=== PATIENT | female | born 1935 | race Caucasian/White ===

== ENCOUNTER → 2016-06-24 | Outpatient (CLI) | payer MEDICARE, MEDICAID ==
[~2016-06-24] MED LIST: ALDACTONE 25MG25 M1 PO; APRESOLINE 10MG10 MG PO; ASPIRIN 32325 MG/TAB PO; ASPIRIN 81M81 MG/TA2 PO; ASPIRIN E.C. 8181 MG PO; BYSTOLIC10 MG PO; CARDIZEM CD240 MG PO; CELEBREX 200MG200 MG PO; CLEOCIN HC150 MG/CAP PO; COLACE 100100 MG/CAP PO; COUMADIN5 MG PO; DARVOCET N; DARVOCET N 101 UDTAB PO; DOXYCYCLINE 10100 MG PO; HYDROXYZINE HCL25 MG PO; IMODIUM A-D2 MG PO; KLOR-CON M2020 MEQ PO; LASIX 20MG TABL20 MG PO; LOPRESSOR100 MG PO; MULTIPLE VITAMI1 CAP PO; NITROSTAT0.4 MG/TAB SL; NORCO 325 MG-51 TAB PO; NORVASC 5MG5 MG/TAB PO; NORVASC2.5 MG PO; NORVASC5 MG PO; OMEPRAZOLE DR20 MG PO; PHENERGAN W/CO120 M1 PO; PLAVIX 75MG TAB75 MG PO; PRAVACHOL 40MG40 MG PO; PREDNISONE20 MG PO; PRILOSEC 20MG20 MG PO; PROAIR HFA0.09 MG/AC IH; PROTONIX 40MG T40 MG PO; PROTONIX20 MG PO; REQUIP 1MG T1 MG/TAB PO; REQUIP2 MG PO; STOOL SOFTENER; STOOL SOFTENER100 M2 PO; TOPROL XL50 MG PO; ULTRAM 50MG TAB50 MG PO; VIT D; VITAMIN D32000 I1 PO; ZANTAC 7575 MG PO; ZOFRAN 4MG T4 MG/TAB PO
== END ==
LOC: COL.RAD 11:42
DX: M19.011 Primary osteoarthritis, right shoulder (principal); S46.811A Strain of other muscles, fascia and tendons at shoulder and upper arm level, right arm, initial encounter
CPT/HCPCS: Q9967

== ENCOUNTER 2016-06-29 14:40 | Inpatient (IN) | payer MEDICARE, MEDICAID ==
[~2016-06-29] VITALS: Ht 162.6 cm; Wt 96.3 kg
[~2016-06-29 14:40] MED LIST changes: -ALDACTONE 25MG25 M1 PO; -IMODIUM A-D2 MG PO; -REQUIP2 MG PO; -ZOFRAN 4MG T4 MG/TAB PO
[2016-07-27] VITALS (13 sets, daily range): BP systolic 105–150; BP diastolic 38–90; PULSE 58–88; TEMP 97.4–98.4
[2016-07-27] MEDS ORDERED: ALDACTONE 25MG25 M1 PO (06:05)
[2016-07-28 04:04] VITALS: BP 131/57; PULSE 65; TEMP 98
[2016-07-28 07:12] VITALS: BP 132/57; PULSE 64; TEMP 98.1
[2016-07-28 11:16] VITALS: BP 110/45; PULSE 64; TEMP 98.4
== END 2016-07-28 14:23 | disposition home or self-care (01) | DRG 483 ==
LOC: JCC 07-27 05:29
PROVIDERS: Orthopaedic Surgery Sports Medicine
PROC: 0RRJ00Z Replacement of Right Shoulder Joint with Reverse Ball and Socket Synthetic Substitute, Open Approach (ICD-10-PCS; principal; 2016-07-27 07:30)
DX: M19.011 Primary osteoarthritis, right shoulder (principal); Z85.828 Personal history of other malignant neoplasm of skin; Z95.0 Presence of cardiac pacemaker; Z96.653 Presence of artificial knee joint, bilateral
CPT/HCPCS: A9284; C1776; J0171; J0330; J1100; J2250; J2370; J2405; J2704; J2795; J3010

== ENCOUNTER 2016-07-30 15:43 | Emergency (ER) | payer MEDICARE, MEDICAID ==
[2006-09-25 22:38] VITALS: BP 187/94
[~2016-07-30] VITALS: Ht 162.6 cm; Wt 97.3 kg
[~2016-07-30 15:43] MED LIST changes: +ALDACTONE 25MG25 M1 PO
[2016-07-30 15:45] VITALS: TEMP 98.1
[2016-07-30] MEDS ORDERED: NORCO 325 MG-51 TAB PO (15:49)
[2016-07-30 16:59] LABS: BASO % 0.2 % (0.0-2.0); EOS # 0.4 (0.0-0.7); EOS % 4.3 % (0-4.0); GRAN # 5.4 (1.4-6.5); GRAN % 66.1 % (42.2-75.2); LYMPH # 1.8 (1.2-3.4); LYMPH % 22.2 % (20.0-51.0); MEAN CELL VOLUME 88 fl (80.0-100.0); MEAN CORPUSCULAR HGB CONC 33 g/dl (33.0-37.0); MONO # 0.6 (0.1-0.6); PLATELET COUNT 169 K/mm3 (130-400); RED BLOOD COUNT 3.71 M/mm3 (4.10-5.30); REDCELL DISTRIBUTION WIDTH-CV 15.3 % (11.5-14.5); WHITE BLOOD COUNT 8.2 K/mm3 (4.8-10.8)
[2016-07-30 17:01] LABS: HEMATOCRIT 32.5 % (37.0-47.0); HEMOGLOBIN 10.7 g/dl (12.5-16.0); MEAN CORPUSCULAR HEMOGLOBIN 29 pg (27.0-31.0)
[2016-07-30 17:08] LABS: CALCIUM 9.1 mg/dL (8.4-10.2); CREATININE, serum 1.33 mg/dL (0.52-1.25); POTASSIUM 4.3 mmol/L (3.4-5.0)
[2016-07-30 19:25] VITALS: BP 148/78; PULSE 78
== END 2016-07-30 19:25 | disposition home or self-care (01) ==
LOC: COL.ER 15:43
PROVIDERS: Emergency Medicine
DX: G89.18 Other acute postprocedural pain (principal); M25.512 Pain in left shoulder; I10 Essential (primary) hypertension
CPT/HCPCS: J2765; J3010; J7030

== ENCOUNTER 2016-10-14 16:11 | Inpatient (IN) | payer MEDICARE, MEDICAID ==
[~2016-10-14] VITALS: Ht 162.6 cm; Wt 107.0 kg
[2016-11-22] VITALS (12 sets, daily range): BP systolic 115–152; BP diastolic 45–543; PULSE 63–80; TEMP 97.2–98.5
[2016-11-22] MEDS ORDERED: IMODIUM A-D2 MG PO (05:44)
[2016-11-22] MEDS ORDERED: ULTRAM 50MG TAB50 MG PO (05:47)
[2016-11-23 00:39] VITALS: BP 97/65; PULSE 67; TEMP 97.5
[2016-11-23 04:00] VITALS: BP 144/54; PULSE 70; TEMP 98
[2016-11-23 07:14] VITALS: BP 114/56; PULSE 67; TEMP 98.5
[2016-11-23 07:48] LABS: HEMATOCRIT 31.8 % (37.0-47.0); HEMOGLOBIN 10.3 g/dl (12.5-16.0)
[2016-11-23] MEDS ORDERED: NORCO 325 MG-51 TAB PO (08:48)
[2016-11-23] MEDS ORDERED: COLACE 100100 MG/CAP PO (08:49)
[2016-11-23] MEDS ORDERED: ZOFRAN 4MG T4 MG/TAB PO (08:50)
[2016-11-23 12:15] VITALS: BP 104/38; PULSE 65; TEMP 97.6
== END 2016-11-23 14:20 | disposition home or self-care (01) | DRG 483 ==
LOC: JCC 11-22 05:04
PROVIDERS: Orthopaedic Surgery Sports Medicine
PROC: 0RRK00Z Replacement of Left Shoulder Joint with Reverse Ball and Socket Synthetic Substitute, Open Approach (ICD-10-PCS; principal; 2016-11-22 07:30)
DX: M19.012 Primary osteoarthritis, left shoulder (principal); I10 Essential (primary) hypertension; I25.10 Atherosclerotic heart disease of native coronary artery without angina pectoris; Z95.0 Presence of cardiac pacemaker; Z95.5 Presence of coronary angioplasty implant and graft; Z85.828 Personal history of other malignant neoplasm of skin
CPT/HCPCS: A9284; C1776; J1100; J2250; J2405; J2704; J3010; J7120

== ENCOUNTER 2017-01-23 09:40 | Observation (INO) | payer MEDICARE ==
[~2017-01-23] VITALS: Ht 162.6 cm; Wt 94.1 kg
[~2017-01-23 09:40] MED LIST changes: +IMODIUM A-D2 MG PO; +ZOFRAN 4MG T4 MG/TAB PO
[2017-01-23] MEDS ORDERED: NITROSTAT0.4 MG/TAB SL (10:01)
[2017-01-23] MEDS ORDERED: PLAVIX 75MG TAB75 MG PO (10:02)
[2017-01-23] MEDS ORDERED: ULTRAM 50MG TAB50 MG PO (10:03)
[2017-01-23] MEDS ORDERED: PRAVACHOL 40MG40 MG PO (10:03)
[2017-01-23] MEDS ORDERED: PROTONIX 40MG T40 MG PO (10:04)
[2017-01-23] MEDS ORDERED: CELEBREX 200MG200 MG PO (10:04)
[2017-01-23] MEDS ORDERED: BYSTOLIC10 MG PO (10:04)
[2017-01-23] MEDS ORDERED: REQUIP2 MG PO (10:05)
[2017-01-23] MEDS ORDERED: LASIX 20MG TABL20 MG PO (10:06)
[2017-01-23] MEDS ORDERED: COLACE 100100 MG/CAP PO (10:06)
[2017-01-23] MEDS ORDERED: ALDACTONE 25MG25 M1 PO (10:07)
[2017-01-23 11:05] LABS: BASO % 0.3 % (0.0-2.0); EOS # 0.5 (0.0-0.7); EOS % 7.3 % (0-4.0); GRAN # 4.2 (1.4-6.5); GRAN % 61.6 % (42.2-75.2); HEMATOCRIT 35.5 % (37.0-47.0); HEMOGLOBIN 11.6 g/dl (12.5-16.0); LYMPH # 1.5 (1.2-3.4); LYMPH % 22.2 % (20.0-51.0); MEAN CELL VOLUME 85 fl (80.0-100.0); MEAN CORPUSCULAR HEMOGLOBIN 28 pg (27.0-31.0); MEAN CORPUSCULAR HGB CONC 33 g/dl (33.0-37.0); MEAN PLATELET VOLUME 10.3 fl (7.4-10.4); MONO # 0.6 (0.1-0.6); MONO % 8.2 % (1.7-9.3); PLATELET COUNT 189 K/mm3 (130-400); RED BLOOD COUNT 4.16 M/mm3 (4.10-5.30); REDCELL DISTRIBUTION WIDTH-CV 15.3 % (11.5-14.5); WHITE BLOOD COUNT 6.8 K/mm3 (4.8-10.8)
[2017-01-23 11:11] LABS: INR 1.1 (0.8-3.0); PROTHROMBIN TIME 12.4 SECONDS (9.7-12.8)
[2017-01-23 11:14] LABS: ADJUSTED CALCIUM 9.3 mg/dL (8.4-10.2); ALANINE AMINOTRANSFERASE 28 U/L (9-52); ALBUMIN 4.4 gm/dL (3.5-5.0); ALKALINE PHOSPHATASE 104 U/L (50-136); ANION GAP 13 mmol/L (7-16); BILIRUBIN,TOTAL 0.8 mg/dL (0.0-1.0); BLOOD UREA NITROGEN 35 mg/dL (7-17); CALCIUM 9.6 mg/dL (8.4-10.2); CARBON DIOXIDE 25 mmol/L (22-30); CHLORIDE 100 mmol/L (98-107); CREATININE, serum 1.97 mg/dL (0.52-1.25); GLUCOSE 112 mg/dL (74-106); LIPASE 166 U/L (23-300); PARTIAL THROMBOPLASTIN TIME 29.4 SECONDS (26.0-37.0); POTASSIUM 4.1 mmol/L (3.4-5.0); SODIUM 138 mmol/L (137-145); TOTAL PROTEIN 7.9 gm/dL (6.4-8.2)
[2017-01-23 11:26] LABS: B-TYPE NATRIURETIC PEPTIDE 257 pg/mL (0-450)
[2017-01-23 11:32] LABS: TROPONIN-I < 0.012 ng/mL (0.000-0.034)
[2017-01-23 13:58] VITALS: BP 95/53; PULSE 60; TEMP 98.2
[2017-01-23 19:49] VITALS: BP 105/47; PULSE 59; TEMP 97.8
[2017-01-23 23:32] VITALS: BP 125/98; PULSE 98; TEMP 98.6
[2017-01-24 02:57] VITALS: BP 131/59; PULSE 59; TEMP 97.8
[2017-01-24 07:44] VITALS: BP 114/57; PULSE 62; TEMP 98.1
[2017-01-24 08:00] LABS: TROPONIN-I < 0.012 ng/mL (0.000-0.034)
[2017-01-24 08:12] LABS: ANION GAP 9 mmol/L (7-16); BLOOD UREA NITROGEN 26 mg/dL (7-17); CALCIUM 9.3 mg/dL (8.4-10.2); CARBON DIOXIDE 25 mmol/L (22-30); CHLORIDE 102 mmol/L (98-107); CREATININE, serum 1.41 mg/dL (0.52-1.25); GLUCOSE 94 mg/dL (74-106); POTASSIUM 4.1 mmol/L (3.4-5.0); SODIUM 137 mmol/L (137-145)
[2017-01-24 11:55] VITALS: BP 110/45; PULSE 54; TEMP 97.8
[2017-01-24 16:27] VITALS: BP 118/59; PULSE 55
== END 2017-01-24 17:19 | disposition home or self-care (01) ==
LOC: COL.ER 09:40 → MEDICAL 12:07
PROVIDERS: Emergency Medicine
DX: R07.9 Chest pain, unspecified (principal); R07.1 Chest pain on breathing; E78.5 Hyperlipidemia, unspecified; G25.81 Restless legs syndrome; I25.10 Atherosclerotic heart disease of native coronary artery without angina pectoris; Z86.010 Personal history of colon polyps; Z95.5 Presence of coronary angioplasty implant and graft; Z95.0 Presence of cardiac pacemaker; I87.9 Disorder of vein, unspecified; Z79.01 Long term (current) use of anticoagulants
CPT/HCPCS: G0378

== ENCOUNTER 2017-05-26 13:44 | Emergency (ER) | payer MEDICARE, MEDICAID ==
[2006-09-25 22:38] VITALS: BP 187/94
[~2017-05-26] VITALS: Ht 162.6 cm; Wt 95.5 kg
[~2017-05-26 13:44] MED LIST changes: +REQUIP2 MG PO
[2017-05-26 13:45] VITALS: TEMP 97.6
[2017-05-26 15:53] LABS: BASO % 0.5 % (0.0-2.0); EOS # 0.3 (0.0-0.7); EOS % 3.6 % (0-4.0); GRAN # 4.9 (1.4-6.5); HEMOGLOBIN 11.5 g/dl (12.5-16.0); LYMPH # 1.8 (1.2-3.4); LYMPH % 24.2 % (20.0-51.0); MEAN CELL VOLUME 89 fl (80.0-100.0); MEAN CORPUSCULAR HEMOGLOBIN 28 pg (27.0-31.0); MEAN CORPUSCULAR HGB CONC 32 g/dl (33.0-37.0); MEAN PLATELET VOLUME 10.4 fl (7.4-10.4); MONO # 0.5 (0.1-0.6); MONO % 6.3 % (1.7-9.3); PLATELET COUNT 198 K/mm3 (130-400); RED BLOOD COUNT 4.05 M/mm3 (4.10-5.30); WHITE BLOOD COUNT 7.5 K/mm3 (4.8-10.8)
[2017-05-26 15:57] LABS: INR 1.1 (0.8-3.0); PROTHROMBIN TIME 12.7 SECONDS (9.7-12.8)
[2017-05-26 16:02] LABS: ADJUSTED CALCIUM 9.3 mg/dL (8.4-10.2); ALBUMIN 4.7 gm/dL (3.5-5.0); BILIRUBIN,TOTAL 0.9 mg/dL (0.0-1.0); CALCIUM 9.9 mg/dL (8.4-10.2); CREATININE, serum 1.52 mg/dL (0.52-1.25); TOTAL PROTEIN 7.8 gm/dL (6.4-8.2)
[2017-05-26 16:33] LABS: POTASSIUM 4.2 mmol/L (3.4-5.0)
[2017-05-26 17:10] VITALS: BP 168/83; PULSE 63
== END 2017-05-26 17:10 | disposition home or self-care (01) ==
LOC: COL.ER 13:44
PROVIDERS: Physician Assistant Medical
DX: R04.0 Epistaxis (principal); R20.2 Paresthesia of skin; I25.10 Atherosclerotic heart disease of native coronary artery without angina pectoris; Z95.5 Presence of coronary angioplasty implant and graft; Z95.0 Presence of cardiac pacemaker

== ENCOUNTER → 2017-07-20 | Outpatient (CLI) | payer MEDICARE, MEDICAID ==
[2017-07-20 11:38] LABS: HEMATOCRIT 34.2 % (37.0-47.0); MEAN CELL VOLUME 89 fl (80.0-100.0); MEAN CORPUSCULAR HEMOGLOBIN 29 pg (27.0-31.0); MEAN CORPUSCULAR HGB CONC 32 g/dl (33.0-37.0); MEAN PLATELET VOLUME 10.4 fl (7.4-10.4); PLATELET COUNT 186 K/mm3 (130-400); RED BLOOD COUNT 3.83 M/mm3 (4.10-5.30); REDCELL DISTRIBUTION WIDTH-CV 14.9 % (11.5-14.5)
[2017-07-20 11:44] LABS: CALCIUM 9.3 mg/dL (8.4-10.2); CREATININE, serum 1.39 mg/dL (0.52-1.25); POTASSIUM 4.4 mmol/L (3.4-5.0)
== END ==
LOC: COL.LAB 11:06
PROVIDERS: Internal Medicine Interventional Cardiology
DX: R60.0 Localized edema (principal)

== ENCOUNTER 2017-08-04 20:35 | Observation (INO) | payer MEDICARE, MEDICAID ==
[~2017-08-04] VITALS: Ht 162.6 cm; Wt 99.6 kg
[2017-08-04] MEDS ORDERED: TEGRETOL 1100 MG/TAB PO (21:14)
[2017-08-04 21:18] LABS: BASO % 0.6 % (0.0-2.0); EOS # 0.3 (0.0-0.7); EOS % 5.1 % (0-4.0); GRAN # 3.8 (1.4-6.5); GRAN % 58.5 % (42.2-75.2); LYMPH # 1.7 (1.2-3.4); LYMPH % 26.4 % (20.0-51.0); MEAN CELL VOLUME 90 fl (80.0-100.0); MEAN CORPUSCULAR HGB CONC 32 g/dl (33.0-37.0); MEAN PLATELET VOLUME 10.4 fl (7.4-10.4); MONO # 0.6 (0.1-0.6); MONO % 9.2 % (1.7-9.3); PLATELET COUNT 170 K/mm3 (130-400); RED BLOOD COUNT 3.69 M/mm3 (4.10-5.30); REDCELL DISTRIBUTION WIDTH-CV 15.3 % (11.5-14.5)
[2017-08-04 21:21] LABS: HEMATOCRIT 33.1 % (37.0-47.0); HEMOGLOBIN 10.5 g/dl (12.5-16.0); MEAN CORPUSCULAR HEMOGLOBIN 28 pg (27.0-31.0)
[2017-08-04 21:24] LABS: PROTHROMBIN TIME 12.1 SECONDS (9.7-12.8)
[2017-08-04 21:26] LABS: ALANINE AMINOTRANSFERASE 33 U/L (9-52); ALKALINE PHOSPHATASE 87 U/L (50-136); ANION GAP 10 mmol/L (7-16); AST,SGOT 18 U/L (15-37); BILIRUBIN,TOTAL 0.1 mg/dL (0.0-1.0); BLOOD UREA NITROGEN 23 mg/dL (7-17); CARBON DIOXIDE 26 mmol/L (22-30); CHLORIDE 104 mmol/L (98-107); CREATININE, serum 1.42 mg/dL (0.52-1.25); GLUCOSE 109 mg/dL (74-106); POTASSIUM 4.6 mmol/L (3.4-5.0); SODIUM 140 mmol/L (137-145)
[2017-08-04 21:46] LABS: TROPONIN-I < 0.012 ng/mL (0.000-0.034)
[2017-08-05] VITALS (8 sets, daily range): BP systolic 113–151; BP diastolic 46–68; PULSE 66–78; TEMP 97.7–98.6
[2017-08-06 04:10] VITALS: BP 144/58; PULSE 65; TEMP 98
[2017-08-06 09:04] VITALS: BP 145/63; PULSE 65; TEMP 99.8
[2017-08-06] MEDS ORDERED: PROTONIX 40MG T40 MG PO (09:33)
[2017-08-06] MEDS ORDERED: CARAFATE 1GM1 G PO (09:35)
[2017-08-06] MEDS ORDERED: ANORO IH (09:39)
== END 2017-08-06 13:13 | disposition home or self-care (01) ==
LOC: COL.ER 20:35 → MEDICAL 22:10
PROVIDERS: Emergency Medicine
DX: R07.9 Chest pain, unspecified (principal); K21.9 Gastro-esophageal reflux disease without esophagitis; K44.9 Diaphragmatic hernia without obstruction or gangrene; I25.10 Atherosclerotic heart disease of native coronary artery without angina pectoris; I50.30 Unspecified diastolic (congestive) heart failure; Z79.02 Long term (current) use of antithrombotics/antiplatelets; E78.5 Hyperlipidemia, unspecified; Z45.018 Encounter for adjustment and management of other part of cardiac pacemaker; R55 Syncope and collapse; Z88.1 Allergy status to other antibiotic agents; Z88.8 Allergy status to other drugs, medicaments and biological substances; Z95.5 Presence of coronary angioplasty implant and graft
CPT/HCPCS: C9113; G0378

== ENCOUNTER 2017-12-20 22:05 | Observation (INO) | payer MEDICARE, MEDICAID ==
[~2017-12-20] VITALS: Ht 162.6 cm; Wt 93.7 kg
[~2017-12-20 22:05] MED LIST changes: +ANORO IH; +CARAFATE 1GM1 G PO; +TEGRETOL 1100 MG/TAB PO
[2017-12-20 22:52] LABS: BASO % 0.4 % (0.0-2.0); EOS # 0.2 (0.0-0.7); EOS % 2.9 % (0-4.0); GRAN # 5.2 (1.4-6.5); GRAN % 64.1 % (42.2-75.2); HEMOGLOBIN 10.8 g/dl (12.5-16.0); LYMPH % 24.5 % (20.0-51.0); MEAN CELL VOLUME 88 fl (80.0-100.0); MEAN CORPUSCULAR HEMOGLOBIN 28 pg (27.0-31.0); MEAN CORPUSCULAR HGB CONC 32 g/dl (33.0-37.0); MEAN PLATELET VOLUME 10.1 fl (7.4-10.4); MONO # 0.6 (0.1-0.6); MONO % 7.9 % (1.7-9.3); PLATELET COUNT 203 K/mm3 (130-400); RED BLOOD COUNT 3.84 M/mm3 (4.10-5.30); REDCELL DISTRIBUTION WIDTH-CV 15.7 % (11.5-14.5)
[2017-12-20 22:54] LABS: HEMATOCRIT 33.8 % (37.0-47.0)
[2017-12-20 23:06] LABS: INR 1.1 (0.8-3.0); PROTHROMBIN TIME 12.6 SECONDS (9.7-12.8)
[2017-12-20] MEDS ORDERED: RANEXA 500MG T500 MG PO (23:06)
[2017-12-20 23:09] LABS: ALANINE AMINOTRANSFERASE 29 U/L (9-52); ALKALINE PHOSPHATASE 94 U/L (50-136); ANION GAP 10 mmol/L (7-16); AST,SGOT 21 U/L (15-37); BILIRUBIN,TOTAL 0.4 mg/dL (0.0-1.0); BLOOD UREA NITROGEN 33 mg/dL (7-17); CALCIUM 9.4 mg/dL (8.4-10.2); CARBON DIOXIDE 26 mmol/L (22-30); CHLORIDE 99 mmol/L (98-107); CREATININE, serum 1.55 mg/dL (0.52-1.25); GLUCOSE 119 mg/dL (74-106); POTASSIUM 4.4 mmol/L (3.4-5.0); SODIUM 135 mmol/L (137-145); TOTAL PROTEIN 7.3 gm/dL (6.4-8.2)
[2017-12-20 23:21] LABS: TROPONIN-I < 0.012 ng/mL (0.000-0.034)
[2017-12-21] VITALS (12 sets, daily range): BP systolic 112–148; BP diastolic 53–66; PULSE 59–65; TEMP 97.5–98.9
[2017-12-21] MEDS ORDERED: MIRALAX PA17 GM/Dose PO (02:05)
[2017-12-21 12:04] LABS: MEAN CELL VOLUME 86 fl (80.0-100.0); MEAN CORPUSCULAR HEMOGLOBIN 28 pg (27.0-31.0); MEAN CORPUSCULAR HGB CONC 33 g/dl (33.0-37.0); MEAN PLATELET VOLUME 10.1 fl (7.4-10.4); PLATELET COUNT 189 K/mm3 (130-400); RED BLOOD COUNT 3.88 M/mm3 (4.10-5.30); REDCELL DISTRIBUTION WIDTH-CV 15.6 % (11.5-14.5)
[2017-12-21 12:08] LABS: HEMATOCRIT 33.3 % (37.0-47.0)
[2017-12-21 12:15] LABS: CALCIUM 9.3 mg/dL (8.4-10.2); CREATININE, serum 1.25 mg/dL (0.52-1.25); INR 1.1 (0.8-3.0); POTASSIUM 4.4 mmol/L (3.4-5.0); PROTHROMBIN TIME 12.3 SECONDS (9.7-12.8)
[2017-12-21 12:18] LABS: PARTIAL THROMBOPLASTIN TIME 29.9 SECONDS (26.0-37.0)
[2017-12-22 04:25] VITALS: BP 121/49; PULSE 61; TEMP 98.1
[2017-12-22 07:59] VITALS: BP 142/58; PULSE 60; TEMP 98.1
[2017-12-22 12:16] VITALS: BP 117/62; PULSE 62; TEMP 97.9
== END 2017-12-22 14:35 | disposition home or self-care (01) ==
LOC: COL.ER 22:05 → MEDICAL 12-21 00:48
PROVIDERS: Emergency Medicine; Internal Medicine Cardiovascular Disease
DX: I25.110 Atherosclerotic heart disease of native coronary artery with unstable angina pectoris (principal); I10 Essential (primary) hypertension; E78.5 Hyperlipidemia, unspecified; K21.9 Gastro-esophageal reflux disease without esophagitis; K44.9 Diaphragmatic hernia without obstruction or gangrene; Z95.0 Presence of cardiac pacemaker; I49.5 Sick sinus syndrome; Z95.5 Presence of coronary angioplasty implant and graft; N28.9 Disorder of kidney and ureter, unspecified; Z79.01 Long term (current) use of anticoagulants; Z79.899 Other long term (current) drug therapy; M54.5 Low back pain; Z85.828 Personal history of other malignant neoplasm of skin; Z96.643 Presence of artificial hip joint, bilateral
CPT/HCPCS: C1769; C1887; J0153; J1644; J2250; J2270; J2405; J3010; J7030; Q9967

== ENCOUNTER 2018-02-13 14:02 | Emergency (ER) | payer MEDICARE, MEDICAID ==
[2006-09-25 22:38] VITALS: BP 187/94
[~2018-02-13] VITALS: Ht 165.1 cm; Wt 97.7 kg
[~2018-02-13 14:02] MED LIST changes: +MIRALAX PA17 GM/Dose PO; +RANEXA 500MG T500 MG PO
[2018-02-13 16:45] VITALS: BP 139/77; PULSE 70; TEMP 98
== END 2018-02-13 16:45 | disposition home or self-care (01) ==
LOC: COL.ER 14:02
DX: S60.021A Contusion of right index finger without damage to nail, initial encounter (principal); I25.10 Atherosclerotic heart disease of native coronary artery without angina pectoris; E78.5 Hyperlipidemia, unspecified; I10 Essential (primary) hypertension; K21.9 Gastro-esophageal reflux disease without esophagitis; W22.8XXA Striking against or struck by other objects, initial encounter; Y92.512 Supermarket, store or market as the place of occurrence of the external cause; Z79.02 Long term (current) use of antithrombotics/antiplatelets

== ENCOUNTER 2018-04-02 23:58 | Observation (INO) | payer MEDICARE, MEDICAID ==
[~2018-04-02] VITALS: Ht 165.1 cm; Wt 93.9 kg
[2018-04-03] VITALS (7 sets, daily range): BP systolic 110–170; BP diastolic 46–79; PULSE 66–81; TEMP 97.4–98.1
[2018-04-03] MEDS ORDERED: NITRO-DUR0.4 MG/PAT TD (01:53)
[2018-04-03] MEDS ORDERED: NORCO 325 MG-51 TAB PO (02:01)
[2018-04-03 10:29] LABS: BASO % 0.4 % (0.0-2.0); EOS # 0.2 (0.0-0.7); EOS % 3.2 % (0-4.0); GRAN % 67.2 % (42.2-75.2); HEMOGLOBIN 10.7 g/dl (12.5-16.0); LYMPH # 1.5 (1.2-3.4); LYMPH % 20.1 % (20.0-51.0); MEAN CELL VOLUME 88 fl (80.0-100.0); MEAN CORPUSCULAR HEMOGLOBIN 29 pg (27.0-31.0); MEAN CORPUSCULAR HGB CONC 33 g/dl (33.0-37.0); MEAN PLATELET VOLUME 9.8 fl (7.4-10.4); MONO # 0.7 (0.1-0.6); MONO % 8.8 % (1.7-9.3); PLATELET COUNT 192 K/mm3 (130-400); REDCELL DISTRIBUTION WIDTH-CV 15.4 % (11.5-14.5)
[2018-04-03 10:30] LABS: HEMATOCRIT 32.6 % (37.0-47.0)
[2018-04-04 03:49] VITALS: BP 122/49; PULSE 65; TEMP 98.1
[2018-04-04 07:39] VITALS: BP 122/48; PULSE 61; TEMP 98.3
[2018-04-04 11:10] VITALS: BP 148/257; PULSE 65; TEMP 97.6
[2018-04-04] MEDS ORDERED: LEXAPRO 10MG10 MG PO (11:34)
[2018-04-04] MEDS ORDERED: ATIVAN 1MG T1 MG/TAB PO (11:37)
== END 2018-04-04 15:18 | disposition home or self-care (01) ==
LOC: MEDICAL 23:58
PROVIDERS: Internal Medicine Nephrology
DX: R25.1 Tremor, unspecified (principal); F41.9 Anxiety disorder, unspecified; I25.10 Atherosclerotic heart disease of native coronary artery without angina pectoris; I10 Essential (primary) hypertension; M19.90 Unspecified osteoarthritis, unspecified site; Z96.653 Presence of artificial knee joint, bilateral; Z95.5 Presence of coronary angioplasty implant and graft; Z96.643 Presence of artificial hip joint, bilateral; Z95.0 Presence of cardiac pacemaker; Z79.02 Long term (current) use of antithrombotics/antiplatelets; Z90.710 Acquired absence of both cervix and uterus; Z90.49 Acquired absence of other specified parts of digestive tract; Z82.49 Family history of ischemic heart disease and other diseases of the circulatory system; Z88.8 Allergy status to other drugs, medicaments and biological substances; Z88.1 Allergy status to other antibiotic agents; Z88.6 Allergy status to analgesic agent
CPT/HCPCS: G0378; G0379; Q9967

== ENCOUNTER 2018-06-01 06:50 | Emergency (ER) | payer MEDICARE ==
[2006-09-25 22:38] VITALS: BP 187/94
[~2018-06-01] VITALS: Ht 162.6 cm; Wt 90.9 kg
[~2018-06-01 06:50] MED LIST changes: +ATIVAN 1MG T1 MG/TAB PO; +LEXAPRO 10MG10 MG PO; +NITRO-DUR0.4 MG/PAT TD
[2018-06-01] MEDS ORDERED: BREO INH (07:04)
[2018-06-01 07:43] LABS: BASO % 0.4 % (0.0-2.0); EOS # 0.3 (0.0-0.7); EOS % 3.7 % (0-4.0); GRAN # 5.2 (1.4-6.5); GRAN % 61.5 % (42.2-75.2); HEMOGLOBIN 10.1 g/dl (12.5-16.0); LYMPH # 2.2 (1.2-3.4); LYMPH % 25.8 % (20.0-51.0); MEAN CELL VOLUME 89 fl (80.0-100.0); MEAN CORPUSCULAR HEMOGLOBIN 29 pg (27.0-31.0); MEAN CORPUSCULAR HGB CONC 32 g/dl (33.0-37.0); MEAN PLATELET VOLUME 10.2 fl (7.4-10.4); MONO # 0.7 (0.1-0.6); MONO % 8.2 % (1.7-9.3); PLATELET COUNT 191 K/mm3 (130-400); RED BLOOD COUNT 3.52 M/mm3 (4.10-5.30); REDCELL DISTRIBUTION WIDTH-CV 16.1 % (11.5-14.5)
[2018-06-01 07:45] LABS: HEMATOCRIT 31.2 % (37.0-47.0)
[2018-06-01 07:55] LABS: ALANINE AMINOTRANSFERASE 20 U/L (9-52); ALBUMIN 3.8 gm/dL (3.5-5.0); ALKALINE PHOSPHATASE 70 U/L (50-136); ANION GAP 4 mmol/L (7-16); AST,SGOT 14 U/L (15-37); BILIRUBIN,TOTAL 0.4 mg/dL (0.0-1.0); BLOOD UREA NITROGEN 25 mg/dL (7-17); CALCIUM 8.9 mg/dL (8.4-10.2); CARBON DIOXIDE 28 mmol/L (22-30); CHLORIDE 106 mmol/L (98-107); CREATININE, serum 1.25 mg/dL (0.52-1.25); GLUCOSE 95 mg/dL (74-106); POTASSIUM 4.6 mmol/L (3.4-5.0); SODIUM 138 mmol/L (137-145); TOTAL PROTEIN 6.7 gm/dL (6.4-8.2)
[2018-06-01 08:00] LABS: C-REACTIVE PROTEIN < 0.5 mg/dL (0.0-0.9)
[2018-06-01 08:15] LABS: COLLECTION METHOD CLEAN CATCH
[2018-06-01 08:27] LABS: MUCOUS Present /lpf; PH 6 (5-8); URINE APPEARANCE Hazy; URINE BACTERIA Rare /hpf; URINE BILIRUBIN Negative (NEGATIVE); URINE BLOOD Negative (NEGATIVE); URINE COLOR Yellow; URINE GLUCOSE Negative (NEGATIVE); URINE KETONE Negative (NEGATIVE); URINE LEUKOCYTE ESTERASE Trace (NEGATIVE); URINE NITRATE Positive (NEGATIVE); URINE PROTEIN(semi-quant) Negative (NEGATIVE); URINE UROBILINOGEN Negative (NEGATIVE)
[2018-06-01] MEDS ORDERED: MACROBID 1100 MG/CAP PO (08:35)
[2018-06-01 09:44] VITALS: BP 149/63; PULSE 64; TEMP 96.7
== END 2018-06-01 10:35 | disposition home or self-care (01) ==
LOC: COL.ER 06:50
PROVIDERS: Family Medicine
DX: N30.00 Acute cystitis without hematuria (principal); F41.0 Panic disorder [episodic paroxysmal anxiety]; I10 Essential (primary) hypertension; Z95.0 Presence of cardiac pacemaker; Z79.02 Long term (current) use of antithrombotics/antiplatelets
CPT/HCPCS: J2405; J7030

== ENCOUNTER 2018-06-18 21:15 | Emergency (ER) | payer MEDICARE ==
[2006-09-25 22:38] VITALS: BP 187/94
[~2018-06-18] VITALS: Ht 162.6 cm; Wt 90.9 kg
[~2018-06-18 21:15] MED LIST changes: +BREO INH; +MACROBID 1100 MG/CAP PO
[2018-06-18 21:23] VITALS: TEMP 98
[2018-06-18 22:04] LABS: BASO % 0.2 % (0.0-2.0); EOS # 0.2 (0.0-0.7); EOS % 2.1 % (0-4.0); GRAN # 6.8 (1.4-6.5); GRAN % 71.8 % (42.2-75.2); LYMPH # 1.6 (1.2-3.4); LYMPH % 17.2 % (20.0-51.0); MEAN CELL VOLUME 89 fl (80.0-100.0); MEAN CORPUSCULAR HGB CONC 32 g/dl (33.0-37.0); MONO # 0.8 (0.1-0.6); MONO % 8.4 % (1.7-9.3); PLATELET COUNT 150 K/mm3 (130-400); RED BLOOD COUNT 3.41 M/mm3 (4.10-5.30)
[2018-06-18 22:11] LABS: HEMATOCRIT 30.3 % (37.0-47.0); HEMOGLOBIN 9.7 g/dl (12.5-16.0); MEAN CORPUSCULAR HEMOGLOBIN 28 pg (27.0-31.0)
[2018-06-18 22:17] LABS: ALBUMIN 3.6 gm/dL (3.5-5.0); BILIRUBIN,TOTAL 0.5 mg/dL (0.0-1.0); CALCIUM 8.8 mg/dL (8.4-10.2); CREATININE, serum 1.36 mg/dL (0.52-1.25); POTASSIUM 4.5 mmol/L (3.4-5.0); TOTAL PROTEIN 6.7 gm/dL (6.4-8.2)
[2018-06-18 22:19] LABS: COLLECTION METHOD CLEAN CATCH
[2018-06-18 22:26] LABS: PH 6 (5-8); SQUAMOUS EPITHELIAL 0-2 /hpf; URINE APPEARANCE Clear; URINE BACTERIA Rare /hpf; URINE BILIRUBIN Negative (NEGATIVE); URINE BLOOD Negative (NEGATIVE); URINE COLOR Yellow; URINE GLUCOSE Negative (NEGATIVE); URINE KETONE Negative (NEGATIVE); URINE LEUKOCYTE ESTERASE Negative (NEGATIVE); URINE NITRATE Negative (NEGATIVE); URINE PROTEIN(semi-quant) Negative (NEGATIVE); URINE RBC 0-2 /hpf; URINE UROBILINOGEN >=4.0 mg/dL (NEGATIVE)
[2018-06-18 23:30] VITALS: BP 153/61; PULSE 70
== END 2018-06-18 23:30 | disposition home or self-care (01) ==
LOC: COL.ER 21:15
PROVIDERS: Emergency Medicine
DX: F41.9 Anxiety disorder, unspecified (principal); E78.5 Hyperlipidemia, unspecified; F44.4 Conversion disorder with motor symptom or deficit; K21.9 Gastro-esophageal reflux disease without esophagitis; D64.9 Anemia, unspecified; N18.9 Chronic kidney disease, unspecified; I25.10 Atherosclerotic heart disease of native coronary artery without angina pectoris; Z90.710 Acquired absence of both cervix and uterus; Z90.49 Acquired absence of other specified parts of digestive tract; Z95.0 Presence of cardiac pacemaker

== ENCOUNTER 2018-07-03 23:59 | Emergency (ER) | payer MEDICARE ==
[2006-09-25 22:38] VITALS: BP 187/94
[~2018-07-03] VITALS: Ht 162.6 cm; Wt 95.5 kg
[2018-07-04 00:16] VITALS: TEMP 98
[2018-07-04] MEDS ORDERED: 00186-0370-20 IH (01:15)
[2018-07-04 01:53] LABS: COLLECTION METHOD CLEAN CATCH
[2018-07-04 01:55] LABS: BASO # 0.1 (0.0-0.2); BASO % 0.6 % (0.0-2.0); EOS # 0.4 (0.0-0.7); EOS % 4.1 % (0-4.0); GRAN # 5.6 (1.4-6.5); GRAN % 61.3 % (42.2-75.2); LYMPH # 2.4 (1.2-3.4); LYMPH % 26.5 % (20.0-51.0); MEAN CELL VOLUME 88 fl (80.0-100.0); MEAN CORPUSCULAR HEMOGLOBIN 28 pg (27.0-31.0); MEAN CORPUSCULAR HGB CONC 32 g/dl (33.0-37.0); MEAN PLATELET VOLUME 9.8 fl (7.4-10.4); MONO # 0.7 (0.1-0.6); MONO % 7.2 % (1.7-9.3); PLATELET COUNT 235 K/mm3 (130-400); RED BLOOD COUNT 3.91 M/mm3 (4.10-5.30); REDCELL DISTRIBUTION WIDTH-CV 15.4 % (11.5-14.5)
[2018-07-04 01:57] LABS: HEMATOCRIT 34.4 % (37.0-47.0)
[2018-07-04 02:13] LABS: BILIRUBIN,TOTAL 0.4 mg/dL (0.0-1.0); CALCIUM 9.4 mg/dL (8.4-10.2); CREATININE, serum 1.76 mg/dL (0.52-1.25); POTASSIUM 4.1 mmol/L (3.4-5.0); TOTAL PROTEIN 7.1 gm/dL (6.4-8.2)
[2018-07-04 02:14] LABS: MUCOUS Present /lpf; PH 5 (5-8); SQUAMOUS EPITHELIAL 0-2 /hpf; URINE APPEARANCE Clear; URINE BACTERIA None Seen /hpf; URINE BILIRUBIN Negative (NEGATIVE); URINE BLOOD Negative (NEGATIVE); URINE COLOR Yellow; URINE GLUCOSE Negative (NEGATIVE); URINE KETONE Negative (NEGATIVE); URINE LEUKOCYTE ESTERASE Negative (NEGATIVE); URINE NITRATE Negative (NEGATIVE); URINE PROTEIN(semi-quant) Negative (NEGATIVE); URINE RBC 0-2 /hpf; URINE UROBILINOGEN Negative (NEGATIVE); URINE WBC 0-2 /hpf
[2018-07-04 02:28] LABS: PROLACTIN 8.9 ng/mL (3.0-18.6)
[2018-07-04] MEDS ORDERED: INDERAL 10MG10 MG PO (03:11)
[2018-07-04] MEDS ORDERED: TESSALON P100 MG/CAP PO (03:12)
[2018-07-04 03:25] VITALS: BP 118/70; PULSE 79
== END 2018-07-04 03:25 | disposition home or self-care (01) ==
LOC: COL.ER 23:59
PROVIDERS: Emergency Medicine
DX: R25.1 Tremor, unspecified (principal); R05 Cough; I25.10 Atherosclerotic heart disease of native coronary artery without angina pectoris; F41.9 Anxiety disorder, unspecified; K21.9 Gastro-esophageal reflux disease without esophagitis; E78.5 Hyperlipidemia, unspecified; Z79.02 Long term (current) use of antithrombotics/antiplatelets

== ENCOUNTER 2018-07-18 12:27 | Emergency (ER) | payer MEDICARE, MEDICAID ==
[2006-09-25 22:38] VITALS: BP 187/94
[~2018-07-18] VITALS: Ht 162.6 cm; Wt 100.0 kg
[~2018-07-18 12:27] MED LIST changes: +00186-0370-20 IH; +INDERAL 10MG10 MG PO; +TESSALON P100 MG/CAP PO
[2018-07-18 12:42] VITALS: TEMP 98.1
[2018-07-18] MEDS ORDERED: SEROQUEL 2525 MG/TAB (12:50)
[2018-07-18 13:12] LABS: BASO % 0.3 % (0.0-2.0); EOS # 0.4 (0.0-0.7); EOS % 4.7 % (0-4.0); GRAN # 4.9 (1.4-6.5); GRAN % 64.1 % (42.2-75.2); HEMOGLOBIN 11.3 g/dl (12.5-16.0); LYMPH # 1.6 (1.2-3.4); MEAN CELL VOLUME 89 fl (80.0-100.0); MEAN CORPUSCULAR HEMOGLOBIN 29 pg (27.0-31.0); MEAN CORPUSCULAR HGB CONC 33 g/dl (33.0-37.0); MEAN PLATELET VOLUME 10.1 fl (7.4-10.4); MONO # 0.7 (0.1-0.6); MONO % 9.6 % (1.7-9.3); PLATELET COUNT 173 K/mm3 (130-400); RED BLOOD COUNT 3.92 M/mm3 (4.10-5.30); REDCELL DISTRIBUTION WIDTH-CV 15.7 % (11.5-14.5)
[2018-07-18 13:22] LABS: ALBUMIN 4.1 gm/dL (3.5-5.0); BILIRUBIN,TOTAL 0.7 mg/dL (0.0-1.0); CALCIUM 9.4 mg/dL (8.4-10.2); CREATININE, serum 1.3 mg/dL (0.52-1.25); POTASSIUM 4.3 mmol/L (3.4-5.0); TOTAL PROTEIN 7.2 gm/dL (6.4-8.2)
[2018-07-18 13:37] LABS: HEMATOCRIT 34.8 % (37.0-47.0)
[2018-07-18 14:03] LABS: COLLECTION METHOD CLEAN CATCH
[2018-07-18 14:10] LABS: MUCOUS Present /lpf; PH 5 (5-8); SQUAMOUS EPITHELIAL None Seen /hpf; URINE APPEARANCE Clear; URINE BACTERIA None Seen /hpf; URINE BILIRUBIN Negative (NEGATIVE); URINE BLOOD 1+ (NEGATIVE); URINE COLOR Yellow; URINE GLUCOSE Negative (NEGATIVE); URINE KETONE Negative (NEGATIVE); URINE LEUKOCYTE ESTERASE Negative (NEGATIVE); URINE NITRATE Negative (NEGATIVE); URINE PROTEIN(semi-quant) Negative (NEGATIVE); URINE RBC 0-2 /hpf; URINE UROBILINOGEN Negative (NEGATIVE)
[2018-07-18 15:12] VITALS: BP 136/64; PULSE 67
--- NOTE | 2018-07-18 15:35 | NUR ---
YASMINE and YASMINE student met with patient and family to discuss home health options and concerns. Patient is increasingly weak and feeling that her and her spouse need help cleaning, cooking, and PT/OT/SN. YASMINE discussed [employer] coverage of and provided the medicare.gov approved list of agencies to patient. Patient would like [facility] for the Medicare approved services. YASMINE talked with them about meeting with the [facility] agency on aging to help with the other home health services as they are unable to afford it on their $1100 social security benefits. They report they have already talked to someone there today and will contact them again to discuss their options. YASMINE made referral to Najma at [facility] who reports they will see them this week to complete intake. YASMINE informed nurse. Face to Face and clinical information faxed. No other dc needs identifed at this time.
== END 2018-07-18 15:51 | disposition home or self-care (01) ==
LOC: COL.ER 12:27
PROVIDERS: Emergency Medicine
DX: T43.595A Adverse effect of other antipsychotics and neuroleptics, initial encounter (principal); Z79.02 Long term (current) use of antithrombotics/antiplatelets

== ENCOUNTER 2018-07-22 01:54 | Emergency (ER) | payer MEDICARE, MEDICAID ==
[2006-09-25 22:38] VITALS: BP 187/94
[~2018-07-22] VITALS: Ht 162.6 cm; Wt 97.7 kg
[~2018-07-22 01:54] MED LIST changes: +SEROQUEL 2525 MG/TAB
[2018-07-22 01:57] VITALS: TEMP 98.1
[2018-07-22 02:19] LABS: BASO % 0.3 % (0.0-2.0); EOS # 0.3 (0.0-0.7); EOS % 3.7 % (0-4.0); GRAN # 5.2 (1.4-6.5); GRAN % 59.7 % (42.2-75.2); HEMOGLOBIN 10.8 g/dl (12.5-16.0); LYMPH # 2.4 (1.2-3.4); LYMPH % 27.9 % (20.0-51.0); MEAN CELL VOLUME 90 fl (80.0-100.0); MEAN CORPUSCULAR HEMOGLOBIN 29 pg (27.0-31.0); MEAN CORPUSCULAR HGB CONC 32 g/dl (33.0-37.0); MEAN PLATELET VOLUME 10.4 fl (7.4-10.4); MONO # 0.7 (0.1-0.6); MONO % 8.2 % (1.7-9.3); PLATELET COUNT 181 K/mm3 (130-400); RED BLOOD COUNT 3.74 M/mm3 (4.10-5.30); REDCELL DISTRIBUTION WIDTH-CV 15.5 % (11.5-14.5)
[2018-07-22 02:29] LABS: HEMATOCRIT 33.6 % (37.0-47.0)
[2018-07-22 02:32] LABS: INR 1.1 (0.8-3.0)
[2018-07-22 02:37] LABS: ALANINE AMINOTRANSFERASE 20 U/L (9-52); ALBUMIN 3.9 gm/dL (3.5-5.0); ALKALINE PHOSPHATASE 74 U/L (50-136); ANION GAP 12 mmol/L (7-16); AST,SGOT 25 U/L (15-37); BILIRUBIN,TOTAL 0.5 mg/dL (0.0-1.0); BLOOD UREA NITROGEN 32 mg/dL (7-17); CALCIUM 8.9 mg/dL (8.4-10.2); CARBON DIOXIDE 18 mmol/L (22-30); CHLORIDE 106 mmol/L (98-107); CREATININE, serum 1.26 mg/dL (0.52-1.25); GLUCOSE 106 mg/dL (74-106); POTASSIUM 4.2 mmol/L (3.4-5.0); SODIUM 136 mmol/L (137-145); TOTAL PROTEIN 7.3 gm/dL (6.4-8.2)
[2018-07-22 02:49] LABS: TROPONIN-I < 0.012 ng/mL (0.000-0.035)
[2018-07-22 05:17] VITALS: BP 112/55; PULSE 60
== END 2018-07-22 05:24 | disposition home or self-care (01) ==
LOC: COL.ER 01:54
PROVIDERS: Emergency Medicine
DX: R07.89 Other chest pain (principal); R05 Cough; F41.9 Anxiety disorder, unspecified; K21.9 Gastro-esophageal reflux disease without esophagitis; E78.5 Hyperlipidemia, unspecified; I25.10 Atherosclerotic heart disease of native coronary artery without angina pectoris; I50.9 Heart failure, unspecified; I10 Essential (primary) hypertension; Z95.0 Presence of cardiac pacemaker; Z90.710 Acquired absence of both cervix and uterus; Z90.49 Acquired absence of other specified parts of digestive tract
CPT/HCPCS: J2405

== ENCOUNTER 2018-08-11 01:26 | Emergency (ER) | payer MEDICARE, MEDICAID ==
[2006-09-25 22:38] VITALS: BP 187/94
[~2018-08-11] VITALS: Ht 162.6 cm; Wt 90.9 kg
[2018-08-11 01:32] VITALS: BP 134/63; TEMP 97.8
[2018-08-11 02:17] LABS: BASO % 0.4 % (0.0-2.0); EOS # 0.3 (0.0-0.7); EOS % 3.9 % (0-4.0); GRAN # 4.2 (1.4-6.5); GRAN % 58.2 % (42.2-75.2); HEMOGLOBIN 10.1 g/dl (12.5-16.0); MEAN CELL VOLUME 89 fl (80.0-100.0); MEAN CORPUSCULAR HEMOGLOBIN 28 pg (27.0-31.0); MEAN CORPUSCULAR HGB CONC 32 g/dl (33.0-37.0); MEAN PLATELET VOLUME 10.2 fl (7.4-10.4); MONO # 0.7 (0.1-0.6); MONO % 9.2 % (1.7-9.3); PLATELET COUNT 165 K/mm3 (130-400); RED BLOOD COUNT 3.58 M/mm3 (4.10-5.30)
[2018-08-11] MEDS ORDERED: BUSPAR10 MG PO (02:28)
[2018-08-11] MEDS ORDERED: ATIVAN 0.50.5 MG/TAB PO (02:36)
[2018-08-11 02:42] LABS: ALBUMIN 3.5 gm/dL (3.5-5.0); BILIRUBIN,TOTAL 0.4 mg/dL (0.0-1.0); CALCIUM 8.9 mg/dL (8.4-10.2); CREATININE, serum 1.23 mg/dL (0.52-1.25); MAGNESIUM 2.1 mg/dL (1.6-2.3); PHOSPHOROUS 4.3 mg/dL (2.5-4.5); POTASSIUM 4.1 mmol/L (3.4-5.0); TOTAL PROTEIN 6.4 gm/dL (6.4-8.2)
[2018-08-11 03:28] LABS: COLLECTION METHOD CLEAN CATCH
[2018-08-11 03:36] LABS: PH 5 (5-8); URINE APPEARANCE Hazy; URINE BACTERIA None Seen /hpf; URINE BILIRUBIN Negative (NEGATIVE); URINE BLOOD Negative (NEGATIVE); URINE COLOR Yellow; URINE GLUCOSE Negative (NEGATIVE); URINE KETONE Negative (NEGATIVE); URINE LEUKOCYTE ESTERASE Negative (NEGATIVE); URINE NITRATE Negative (NEGATIVE); URINE PROTEIN(semi-quant) Negative (NEGATIVE); URINE RBC None Seen /hpf; URINE UROBILINOGEN Negative (NEGATIVE)
[2018-08-11 03:55] VITALS: PULSE 61
== END 2018-08-11 04:15 | disposition home or self-care (01) ==
LOC: COL.ER 01:26
PROVIDERS: Emergency Medicine
DX: R25.1 Tremor, unspecified (principal); I25.10 Atherosclerotic heart disease of native coronary artery without angina pectoris; Z95.5 Presence of coronary angioplasty implant and graft; Z79.02 Long term (current) use of antithrombotics/antiplatelets; Z79.51 Long term (current) use of inhaled steroids
CPT/HCPCS: J2060

== ENCOUNTER 2018-08-14 17:06 | Emergency (ER) | payer MEDICARE, MEDICAID ==
[2006-09-25 22:38] VITALS: BP 187/94
[~2018-08-14] VITALS: Ht 162.6 cm; Wt 95.5 kg
[~2018-08-14 17:06] MED LIST changes: +ATIVAN 0.50.5 MG/TAB PO; +BUSPAR10 MG PO
[2018-08-14 17:15] VITALS: TEMP 98.3
[2018-08-14 18:53] VITALS: BP 142/72; PULSE 65
== END 2018-08-14 18:53 | disposition home or self-care (01) ==
LOC: COL.ER 17:06
DX: M25.562 Pain in left knee (principal); M25.552 Pain in left hip; K21.9 Gastro-esophageal reflux disease without esophagitis; F41.9 Anxiety disorder, unspecified; E78.5 Hyperlipidemia, unspecified; I25.10 Atherosclerotic heart disease of native coronary artery without angina pectoris; Z79.02 Long term (current) use of antithrombotics/antiplatelets; W19.XXXA Unspecified fall, initial encounter

== ENCOUNTER → 2018-08-15 | Outpatient (CLI) | payer MEDICARE, MEDICAID | LOC: COL.PUL 10:46 | DX: R05 Cough (principal) ==

== ENCOUNTER 2018-08-18 19:01 | Emergency (ER) | payer MEDICARE, MEDICAID ==
[2006-09-25 22:38] VITALS: BP 187/94
[~2018-08-18] VITALS: Ht 162.6 cm; Wt 95.5 kg
[2018-08-18 19:12] VITALS: TEMP 97.8
[2018-08-18 20:10] LABS: BASO % 0.4 % (0.0-2.0); EOS # 0.3 (0.0-0.7); EOS % 4.3 % (0-4.0); GRAN % 57.5 % (42.2-75.2); HEMOGLOBIN 11.1 g/dl (12.5-16.0); LYMPH % 28.4 % (20.0-51.0); MEAN CELL VOLUME 90 fl (80.0-100.0); MEAN CORPUSCULAR HEMOGLOBIN 29 pg (27.0-31.0); MEAN CORPUSCULAR HGB CONC 32 g/dl (33.0-37.0); MEAN PLATELET VOLUME 10.9 fl (7.4-10.4); MONO # 0.6 (0.1-0.6); PLATELET COUNT 203 K/mm3 (130-400); RED BLOOD COUNT 3.86 M/mm3 (4.10-5.30); REDCELL DISTRIBUTION WIDTH-CV 16.3 % (11.5-14.5)
[2018-08-18 20:17] LABS: HEMATOCRIT 34.6 % (37.0-47.0)
[2018-08-18 20:29] LABS: BILIRUBIN,TOTAL 0.5 mg/dL (0.0-1.0); CALCIUM 8.9 mg/dL (8.4-10.2); CREATININE, serum 1.39 mg/dL (0.52-1.25); POTASSIUM 5.2 mmol/L (3.4-5.0); TOTAL PROTEIN 7.3 gm/dL (6.4-8.2)
[2018-08-18] MEDS ORDERED: KLONOPIN 0.5MG0.5 MG PO (20:49)
[2018-08-18 20:56] LABS: COLLECTION METHOD CLEAN CATCH
[2018-08-18 21:00] VITALS: BP 143/69; PULSE 62
[2018-08-18 21:04] LABS: PH 7 (5-8); SQUAMOUS EPITHELIAL 0-2 /hpf; URINE APPEARANCE Clear; URINE BACTERIA Rare /hpf; URINE BILIRUBIN Negative (NEGATIVE); URINE BLOOD Negative (NEGATIVE); URINE COLOR Yellow; URINE GLUCOSE Negative (NEGATIVE); URINE KETONE Negative (NEGATIVE); URINE LEUKOCYTE ESTERASE Negative (NEGATIVE); URINE NITRATE Negative (NEGATIVE); URINE PROTEIN(semi-quant) Negative (NEGATIVE); URINE RBC 0-2 /hpf; URINE UROBILINOGEN Negative (NEGATIVE)
== END 2018-08-18 21:29 | disposition home or self-care (01) ==
LOC: COL.ER 19:01
PROVIDERS: Emergency Medicine
DX: R25.1 Tremor, unspecified (principal); Z79.02 Long term (current) use of antithrombotics/antiplatelets

== ENCOUNTER 2018-08-28 21:24 | Emergency (ER) | payer MEDICARE, MEDICAID ==
[2006-09-25 22:38] VITALS: BP 187/94
[~2018-08-28] VITALS: Ht 162.6 cm; Wt 98.6 kg
[2018-08-28 21:24] VITALS: TEMP 97
[~2018-08-28 21:24] MED LIST changes: +KLONOPIN 0.5MG0.5 MG PO
[2018-08-28 22:13] LABS: BASO % 0.4 % (0.0-2.0); EOS # 0.3 (0.0-0.7); EOS % 3.2 % (0-4.0); GRAN # 5.1 (1.4-6.5); GRAN % 63.6 % (42.2-75.2); HEMATOCRIT 34.6 % (37.0-47.0); HEMOGLOBIN 11.4 g/dl (12.5-16.0); LYMPH # 1.9 (1.2-3.4); MEAN CELL VOLUME 87 fl (80.0-100.0); MEAN CORPUSCULAR HEMOGLOBIN 29 pg (27.0-31.0); MEAN CORPUSCULAR HGB CONC 33 g/dl (33.0-37.0); MEAN PLATELET VOLUME 10.4 fl (7.4-10.4); MONO # 0.8 (0.1-0.6); MONO % 9.6 % (1.7-9.3); PLATELET COUNT 181 K/mm3 (130-400); RED BLOOD COUNT 3.98 M/mm3 (4.10-5.30); REDCELL DISTRIBUTION WIDTH-CV 16.5 % (11.5-14.5)
[2018-08-28 22:22] LABS: ALANINE AMINOTRANSFERASE 16 U/L (9-52); ALBUMIN 4.1 gm/dL (3.5-5.0); ALKALINE PHOSPHATASE 80 U/L (50-136); ANION GAP 8 mmol/L (7-16); AST,SGOT 20 U/L (15-37); BILIRUBIN,TOTAL 0.6 mg/dL (0.0-1.0); BLOOD UREA NITROGEN 42 mg/dL (7-17); CALCIUM 9.4 mg/dL (8.4-10.2); CARBON DIOXIDE 26 mmol/L (22-30); CHLORIDE 102 mmol/L (98-107); CREATININE, serum 1.58 (0.52-1.25); GLUCOSE 117 mg/dL (74-106); SODIUM 137 mmol/L (137-145); TOTAL PROTEIN 7.6 gm/dL (6.4-8.2)
[2018-08-28 22:40] LABS: ERYTHROCYTE SEDIMENTATION RATE 19 mm/hr (0-30)
[2018-08-28 22:54] LABS: TROPONIN-I < 0.012 ng/mL (0.000-0.035)
[2018-08-28] MEDS ORDERED: TESSALON P100 MG/CAP PO (23:36)
[2018-08-28] MEDS ORDERED: KLONOPIN 0.5MG0.5 MG PO (23:37)
[2018-08-28] MEDS ORDERED: DULCOLAX STOOL100 MG PO (23:38)
[2018-08-29 00:05] VITALS: BP 143/79; PULSE 80
== END 2018-08-29 00:05 | disposition home or self-care (01) ==
LOC: COL.ER 21:24
PROVIDERS: Emergency Medicine
DX: R51 Headache (principal); R20.2 Paresthesia of skin; I25.10 Atherosclerotic heart disease of native coronary artery without angina pectoris; F41.9 Anxiety disorder, unspecified; K21.9 Gastro-esophageal reflux disease without esophagitis; E78.5 Hyperlipidemia, unspecified; Z79.02 Long term (current) use of antithrombotics/antiplatelets

== ENCOUNTER 2018-09-18 01:38 | Emergency (ER) | payer MEDICARE, MEDICAID ==
[2006-09-25 22:38] VITALS: BP 187/94
[~2018-09-18] VITALS: Ht 162.6 cm; Wt 144.1 kg
[~2018-09-18 01:38] MED LIST changes: +DULCOLAX STOOL100 MG PO
[2018-09-18 02:16] LABS: BASO % 0.6 % (0.0-2.0); EOS # 0.3 (0.0-0.7); EOS % 4.3 % (0-4.0); GRAN # 3.8 (1.4-6.5); HEMATOCRIT 33.6 % (37.0-47.0); HEMOGLOBIN 10.9 g/dl (12.5-16.0); LYMPH # 2.2 (1.2-3.4); LYMPH % 30.9 % (20.0-51.0); MEAN CELL VOLUME 89 fl (80.0-100.0); MEAN CORPUSCULAR HEMOGLOBIN 29 pg (27.0-31.0); MEAN CORPUSCULAR HGB CONC 32 g/dl (33.0-37.0); MEAN PLATELET VOLUME 10.1 fl (7.4-10.4); MONO # 0.6 (0.1-0.6); MONO % 8.8 % (1.7-9.3); PLATELET COUNT 180 K/mm3 (130-400); RED BLOOD COUNT 3.77 M/mm3 (4.10-5.30); REDCELL DISTRIBUTION WIDTH-CV 16.2 % (11.5-14.5)
[2018-09-18 02:26] LABS: ALBUMIN 3.8 gm/dL (3.5-5.0); BILIRUBIN,TOTAL 0.5 mg/dL (0.0-1.0); CALCIUM 9.2 mg/dL (8.4-10.2); CREATININE, serum 1.6 (0.52-1.25); POTASSIUM 4.2 mmol/L (3.4-5.0)
[2018-09-18 03:23] VITALS: BP 112/41; PULSE 64
== END 2018-09-18 03:38 | disposition home or self-care (01) ==
LOC: COL.ER 01:38
PROVIDERS: Emergency Medicine
DX: F44.4 Conversion disorder with motor symptom or deficit (principal); I12.9 Hypertensive chronic kidney disease with stage 1 through stage 4 chronic kidney disease, or unspecified chronic kidney disease; N18.9 Chronic kidney disease, unspecified; E78.5 Hyperlipidemia, unspecified; Z90.49 Acquired absence of other specified parts of digestive tract; Z90.710 Acquired absence of both cervix and uterus

== ENCOUNTER → 2018-09-20 | Outpatient (CLI) | payer MEDICARE, MEDICAID ==
[2018-09-20 15:53] LABS: HEMATOCRIT 37.5 % (37.0-47.0); MEAN CELL VOLUME 90 fl (80.0-100.0); MEAN CORPUSCULAR HEMOGLOBIN 29 pg (27.0-31.0); MEAN CORPUSCULAR HGB CONC 32 g/dl (33.0-37.0); MEAN PLATELET VOLUME 9.9 fl (7.4-10.4); PLATELET COUNT 197 K/mm3 (130-400); RED BLOOD COUNT 4.19 M/mm3 (4.10-5.30); REDCELL DISTRIBUTION WIDTH-CV 16.3 % (11.5-14.5)
[2018-09-20 16:25] LABS: ERYTHROCYTE SEDIMENTATION RATE 20 mm/hr (0-30)
== END ==
LOC: COL.LAB 15:20
PROVIDERS: Orthopaedic Surgery
DX: M25.552 Pain in left hip (principal)

== ENCOUNTER → 2018-09-28 | Outpatient (CLI) | payer MEDICARE, MEDICAID ==
[~2018-09-28] MED LIST changes: +BUSPAR DIVIDOSE15 MG PO; +CORTEF5 MG PO; +LASIX 40MG TABL40 MG PO; +LEVAQUIN 5500 MG/TA1 PO; +LEXAPRO20 MG PO; +PULMICORT R1 MG/2 ML IH
== END ==
LOC: COL.RAD 08:38
DX: M25.552 Pain in left hip (principal); Z96.642 Presence of left artificial hip joint
CPT/HCPCS: A9503

== ENCOUNTER 2018-10-01 12:22 | Emergency (ER) | payer MEDICARE, MEDICAID ==
[2006-09-25 22:38] VITALS: BP 187/94
[~2018-10-01] VITALS: Ht 162.6 cm; Wt 98.6 kg
[~2018-10-01 12:22] MED LIST changes: -BUSPAR DIVIDOSE15 MG PO; -CORTEF5 MG PO; -LASIX 40MG TABL40 MG PO; -LEVAQUIN 5500 MG/TA1 PO; -LEXAPRO20 MG PO; -PULMICORT R1 MG/2 ML IH
[2018-10-01 12:29] VITALS: TEMP 97.7
[2018-10-01] MEDS ORDERED: ALDACTONE 25MG25 M1 PO (12:43)
[2018-10-01] MEDS ORDERED: ASPIRIN 81M81 MG/TA2 PO (12:43)
[2018-10-01] MEDS ORDERED: ATIVAN 0.50.5 MG/TAB PO (12:45)
[2018-10-01] MEDS ORDERED: BUSPAR DIVIDOSE15 MG PO (12:47)
[2018-10-01] MEDS ORDERED: BYSTOLIC10 MG PO (12:47)
[2018-10-01] MEDS ORDERED: LASIX 40MG TABL40 MG PO (12:51)
[2018-10-01] MEDS ORDERED: LASIX 20MG TABL20 MG PO (12:51)
[2018-10-01] MEDS ORDERED: LEXAPRO20 MG PO (12:53)
[2018-10-01] MEDS ORDERED: NITRO-DUR0.4 MG/PAT TD (12:54)
[2018-10-01] MEDS ORDERED: NITROSTAT0.4 MG/TAB SL (12:55)
[2018-10-01] MEDS ORDERED: PROTONIX 40MG T40 MG PO (12:56)
[2018-10-01] MEDS ORDERED: CORTEF5 MG PO (13:00)
[2018-10-01] MEDS ORDERED: PULMICORT R1 MG/2 ML IH (13:03)
[2018-10-01] MEDS ORDERED: LEVAQUIN 5500 MG/TA1 PO (13:04)
[2018-10-01 15:16] VITALS: BP 153/92; PULSE 65
== END 2018-10-01 15:16 | disposition home or self-care (01) ==
LOC: COL.ER 12:22
DX: R25.1 Tremor, unspecified (principal); J44.9 Chronic obstructive pulmonary disease, unspecified; Z90.49 Acquired absence of other specified parts of digestive tract; Z90.710 Acquired absence of both cervix and uterus; I10 Essential (primary) hypertension; Z87.891 Personal history of nicotine dependence; Z79.82 Long term (current) use of aspirin; Z95.5 Presence of coronary angioplasty implant and graft; Z79.02 Long term (current) use of antithrombotics/antiplatelets
CPT/HCPCS: J1200

== ENCOUNTER 2018-10-24 20:35 | Emergency (ER) | payer MEDICARE, MEDICAID ==
[2006-09-25 22:38] VITALS: BP 187/94
[~2018-10-24 20:35] MED LIST changes: +BUSPAR DIVIDOSE15 MG PO; +CORTEF5 MG PO; +LASIX 40MG TABL40 MG PO; +LEVAQUIN 5500 MG/TA1 PO; +LEXAPRO20 MG PO; +PULMICORT R1 MG/2 ML IH
[2018-10-24 20:47] VITALS: TEMP 98
[2018-10-24 21:35] LABS: BASO % 0.1 % (0.0-2.0); EOS # 0.3 (0.0-0.7); EOS % 3.3 % (0-4.0); GRAN # 4.5 (1.4-6.5); GRAN % 58.9 % (42.2-75.2); HEMOGLOBIN 12.1 g/dl (12.5-16.0); LYMPH # 2.2 (1.2-3.4); MEAN CELL VOLUME 90 fl (80.0-100.0); MEAN CORPUSCULAR HEMOGLOBIN 30 pg (27.0-31.0); MEAN CORPUSCULAR HGB CONC 33 g/dl (33.0-37.0); MEAN PLATELET VOLUME 10.3 fl (7.4-10.4); MONO # 0.7 (0.1-0.6); MONO % 9.3 % (1.7-9.3); PLATELET COUNT 169 K/mm3 (130-400); RED BLOOD COUNT 4.05 M/mm3 (4.10-5.30); REDCELL DISTRIBUTION WIDTH-CV 15.4 % (11.5-14.5)
[2018-10-24 22:05] LABS: HEMATOCRIT 36.4 % (37.0-47.0)
[2018-10-24 22:17] LABS: BILIRUBIN,TOTAL 0.6 mg/dL (0.0-1.0); C-REACTIVE PROTEIN 0.7 mg/dL (0.0-0.9); CALCIUM 9.3 mg/dL (8.4-10.2); CREATININE, serum 1.29 (0.52-1.25); POTASSIUM 4.6 mmol/L (3.4-5.0); TOTAL PROTEIN 7.3 gm/dL (6.4-8.2)
[2018-10-24 22:41] LABS: ERYTHROCYTE SEDIMENTATION RATE 8 mm/hr (0-30)
[2018-10-24 23:36] VITALS: BP 142/64; PULSE 67
== END 2018-10-24 23:51 | disposition home or self-care (01) ==
LOC: COL.ER 20:35
PROVIDERS: Emergency Medicine
DX: R51 Headache (principal); I25.10 Atherosclerotic heart disease of native coronary artery without angina pectoris; I10 Essential (primary) hypertension; E78.00 Pure hypercholesterolemia, unspecified; F32.9 Major depressive disorder, single episode, unspecified; Z79.82 Long term (current) use of aspirin; Z79.02 Long term (current) use of antithrombotics/antiplatelets
CPT/HCPCS: J2060; J2405; J3010; J7030

== ENCOUNTER → 2018-11-03 | Outpatient (CLI) | payer MEDICARE, MEDICAID | LOC: COL.RAD 11:54 | DX: I67.82 Cerebral ischemia (principal); M54.10 Radiculopathy, site unspecified; Z98.890 Other specified postprocedural states | CPT/HCPCS: A9585 ==

== ENCOUNTER 2018-11-13 02:57 | Emergency (ER) | payer MEDICARE, MEDICAID ==
[2006-09-25 22:38] VITALS: BP 187/94
[~2018-11-13] VITALS: Ht 165.1 cm; Wt 96.4 kg
[2018-11-13 03:06] VITALS: BP 145/76; TEMP 97.3
[2018-11-13 04:06] LABS: BASO % 0.4 % (0.0-2.0); EOS # 0.4 (0.0-0.7); EOS % 5.2 % (0-4.0); GRAN # 3.9 (1.4-6.5); GRAN % 55.8 % (42.2-75.2); HEMOGLOBIN 10.7 g/dl (12.5-16.0); LYMPH % 28.7 % (20.0-51.0); MEAN CELL VOLUME 91 fl (80.0-100.0); MEAN CORPUSCULAR HEMOGLOBIN 29 pg (27.0-31.0); MEAN CORPUSCULAR HGB CONC 32 g/dl (33.0-37.0); MONO # 0.7 (0.1-0.6); MONO % 9.6 % (1.7-9.3); PLATELET COUNT 173 K/mm3 (130-400); RED BLOOD COUNT 3.66 M/mm3 (4.10-5.30); REDCELL DISTRIBUTION WIDTH-CV 14.9 % (11.5-14.5)
[2018-11-13 04:07] LABS: HEMATOCRIT 33.3 % (37.0-47.0)
[2018-11-13 04:15] LABS: ALBUMIN 3.7 gm/dL (3.5-5.0); BILIRUBIN,TOTAL 0.5 mg/dL (0.0-1.0); CALCIUM 9.1 mg/dL (8.4-10.2); CREATININE, serum 1.21 (0.52-1.25); MAGNESIUM 2.1 mg/dL (1.6-2.3); PHOSPHOROUS 3.8 mg/dL (2.5-4.5); POTASSIUM 4.4 mmol/L (3.4-5.0); TOTAL PROTEIN 6.5 gm/dL (6.4-8.2)
[2018-11-13 04:30] LABS: COLLECTION METHOD CLEAN CATCH
[2018-11-13 04:35] LABS: MUCOUS Present /lpf; PH 5 (5-8); SQUAMOUS EPITHELIAL 0-2 /hpf; URINE APPEARANCE Clear; URINE BACTERIA None Seen /hpf; URINE BILIRUBIN Negative (NEGATIVE); URINE BLOOD Negative (NEGATIVE); URINE COLOR Yellow; URINE GLUCOSE Negative (NEGATIVE); URINE KETONE Negative (NEGATIVE); URINE LEUKOCYTE ESTERASE Negative (NEGATIVE); URINE NITRATE Negative (NEGATIVE); URINE PROTEIN(semi-quant) Negative (NEGATIVE); URINE RBC None Seen /hpf; URINE UROBILINOGEN Negative (NEGATIVE)
[2018-11-13 04:46] LABS: TSH w REFLEX 3.69 uIU/mL (0.465-4.680)
[2018-11-13 05:54] VITALS: PULSE 70
== END 2018-11-13 05:54 | disposition home or self-care (01) ==
LOC: COL.ER 02:57
PROVIDERS: Emergency Medicine
DX: F44.4 Conversion disorder with motor symptom or deficit (principal); K21.9 Gastro-esophageal reflux disease without esophagitis; F41.9 Anxiety disorder, unspecified; E78.00 Pure hypercholesterolemia, unspecified; I25.10 Atherosclerotic heart disease of native coronary artery without angina pectoris; Z79.02 Long term (current) use of antithrombotics/antiplatelets; Z79.82 Long term (current) use of aspirin
CPT/HCPCS: J1200; J2060

== ENCOUNTER → 2018-11-15 | Outpatient (CLI) | payer MEDICARE, MEDICAID | LOC: COL.RAD 09:03 | DX: K21.9 Gastro-esophageal reflux disease without esophagitis (principal); K44.9 Diaphragmatic hernia without obstruction or gangrene; K22.4 Dyskinesia of esophagus ==

== ENCOUNTER 2018-11-22 23:09 | Emergency (ER) | payer MEDICARE, MEDICAID ==
[2006-09-25 22:38] VITALS: BP 187/94
[~2018-11-22] VITALS: Ht 165.1 cm; Wt 100.0 kg
[2018-11-22 23:16] VITALS: BP 142/63; TEMP 98
[2018-11-23 01:07] LABS: BASO % 0.4 % (0.0-2.0); EOS # 0.4 (0.0-0.7); EOS % 3.9 % (0-4.0); GRAN % 63.3 % (42.2-75.2); HEMOGLOBIN 11.7 g/dl (12.5-16.0); LYMPH # 2.3 (1.2-3.4); LYMPH % 23.6 % (20.0-51.0); MEAN CELL VOLUME 93 fl (80.0-100.0); MEAN CORPUSCULAR HEMOGLOBIN 29 pg (27.0-31.0); MEAN CORPUSCULAR HGB CONC 32 g/dl (33.0-37.0); MEAN PLATELET VOLUME 10.6 fl (7.4-10.4); MONO # 0.8 (0.1-0.6); MONO % 8.5 % (1.7-9.3); PLATELET COUNT 195 K/mm3 (130-400); RED BLOOD COUNT 3.98 M/mm3 (4.10-5.30); REDCELL DISTRIBUTION WIDTH-CV 15.4 % (11.5-14.5)
[2018-11-23 01:09] LABS: HEMATOCRIT 36.8 % (37.0-47.0)
[2018-11-23 01:12] LABS: PROTHROMBIN TIME 11.3 SECONDS (9.7-12.8)
[2018-11-23 01:14] LABS: ALANINE AMINOTRANSFERASE 10 U/L (9-52); ALBUMIN 4.2 gm/dL (3.5-5.0); ALKALINE PHOSPHATASE 73 U/L (50-136); ANION GAP 9 mmol/L (7-16); AST,SGOT 19 U/L (15-37); BILIRUBIN,TOTAL 0.5 mg/dL (0.0-1.0); BLOOD UREA NITROGEN 24 mg/dL (7-17); CALCIUM 9.8 mg/dL (8.4-10.2); CARBON DIOXIDE 25 mmol/L (22-30); CHLORIDE 104 mmol/L (98-107); CREATININE, serum 1.08 (0.52-1.25); GLUCOSE 98 mg/dL (74-106); LIPASE 421 U/L (23-300); POTASSIUM 4.8 mmol/L (3.4-5.0); SODIUM 138 mmol/L (137-145); TOTAL PROTEIN 7.5 gm/dL (6.4-8.2)
[2018-11-23 01:16] LABS: PARTIAL THROMBOPLASTIN TIME 29.1 SECONDS (26.0-37.0)
[2018-11-23 01:33] LABS: TROPONIN-I < 0.012 ng/mL (0.000-0.035)
[2018-11-23] MEDS ORDERED: CARAFATE 1GM1 G PO (02:09)
[2018-11-23 02:31] VITALS: PULSE 64
== END 2018-11-23 02:31 | disposition home or self-care (01) ==
LOC: COL.ER 23:09
PROVIDERS: Emergency Medicine
DX: K29.70 Gastritis, unspecified, without bleeding (principal); K44.9 Diaphragmatic hernia without obstruction or gangrene; I25.10 Atherosclerotic heart disease of native coronary artery without angina pectoris; Z79.82 Long term (current) use of aspirin; Z90.710 Acquired absence of both cervix and uterus; Z90.49 Acquired absence of other specified parts of digestive tract

== ENCOUNTER 2018-12-04 01:45 | Observation (INO) | payer MEDICARE, MEDICAID ==
[~2018-12-04] VITALS: Ht 165.1 cm; Wt 105.6 kg
[2018-12-04] VITALS (516 sets, daily range): BP systolic 134–164; BP diastolic 56–80; PULSE 59–67; TEMP 98–98.6; O2SAT 83–100
[2018-12-04 02:31] LABS: BASO % 0.3 % (0.0-2.0); EOS # 0.3 (0.0-0.7); EOS % 4.6 % (0-4.0); GRAN # 4.3 (1.4-6.5); GRAN % 58.8 % (42.2-75.2); HEMATOCRIT 33.7 % (37.0-47.0); LYMPH # 1.9 (1.2-3.4); LYMPH % 26.2 % (20.0-51.0); MEAN CELL VOLUME 91 fl (80.0-100.0); MEAN CORPUSCULAR HEMOGLOBIN 30 pg (27.0-31.0); MEAN CORPUSCULAR HGB CONC 33 g/dl (33.0-37.0); MONO # 0.7 (0.1-0.6); MONO % 9.7 % (1.7-9.3); PLATELET COUNT 164 K/mm3 (130-400); RED BLOOD COUNT 3.72 M/mm3 (4.10-5.30); REDCELL DISTRIBUTION WIDTH-CV 15.3 % (11.5-14.5)
[2018-12-04 02:41] LABS: ALANINE AMINOTRANSFERASE 15 U/L (9-52); ALBUMIN 3.6 gm/dL (3.5-5.0); ALKALINE PHOSPHATASE 75 U/L (50-136); ANION GAP 9 mmol/L (7-16); AST,SGOT 14 U/L (15-37); BILIRUBIN,TOTAL 0.3 mg/dL (0.0-1.0); BLOOD UREA NITROGEN 18 mg/dL (7-17); CARBON DIOXIDE 23 mmol/L (22-30); CHLORIDE 109 mmol/L (98-107); GLUCOSE 99 mg/dL (74-106); LIPASE 70 U/L (23-300); POTASSIUM 3.8 mmol/L (3.4-5.0); SODIUM 142 mmol/L (137-145); TOTAL PROTEIN 6.5 gm/dL (6.4-8.2)
[2018-12-04 02:43] LABS: PARTIAL THROMBOPLASTIN TIME 26.7 SECONDS (26.0-37.0); PROTHROMBIN TIME 11.6 SECONDS (9.7-12.8)
[2018-12-04 02:54] LABS: TROPONIN-I < 0.012 ng/mL (0.000-0.035)
[2018-12-04] MEDS ORDERED: 00186-0370-20 IH (07:53)
[2018-12-04 07:56] LABS: CHOLESTEROL RISK RATIO 3.6
[2018-12-04] MEDS ORDERED: ABILIFY5 MG PO ×2 (07:57→11:05)
[2018-12-04] MEDS ORDERED: NORCO 325 MG-51 TAB PO (07:59)
[2018-12-04] MEDS ORDERED: PLAVIX 75MG TAB75 MG PO (08:00)
[2018-12-04] MEDS ORDERED: LEXAPRO20 MG PO (08:01)
--- NOTE | 2018-12-04 08:35 | NUR ---
Report received from Brady in ER and pt brought to ICU 7. Pt able to stand and pivot to ICU bed. Was placed on monitor and assessment complete. Pt denies any pain at this time. VSS. Contacted pharmacy and patients PCP for med list and history. Will continue to follow.
--- NOTE | 2018-12-04 09:16 | NUR ---
SW met with the patient to discuss a discharge plan. The [place] of [place] with her , Ravi and their son Jose J. The pt uses a walker when she goes out into the community and reports independence with ADLs. The pt has [facility] and a nurse visits weekly to check vitals. The pt's PCP is Dr. Cyrus Meng and pt receives her medications from [facility] with no difficulties. The pt has advanced directives in the EMR. Upon discharge the pt's son will transport her home. SW will continue to follow to assist with any discharge needs. DPOA for HC: Ravi Reveal Elma Calos Jose J Reveal
[2018-12-04] MEDS ORDERED: [UNRECOGNIZED DRUG - MIXTURE] (09:41)
[2018-12-04] MEDS ORDERED: ATIVAN 0.50.5 MG/TAB PO (09:58)
[2018-12-04] MEDS ORDERED: PERFOROMIS20 MCG/2 M IH (09:59)
[2018-12-04] MEDS ORDERED: COLACE 100100 MG/CAP PO (10:01)
[2018-12-04] MEDS ORDERED: CARAFATE 1GM1 G PO (11:05)
--- NOTE | 2018-12-04 11:22 | NUR ---
Dr Rashid in to see pt. Will plan for discharge.
--- NOTE | 2018-12-04 11:52 | NUR ---
Report given to Amanda YOO and care transfered.
--- NOTE | 2018-12-04 11:52 | NUR ---
Bedside shift report received from NAILA Yanes. Patient is resting in bed with no complaints or concerns at this time. Full assessment completed. Call light within reach. Bed in lowest position. Side rails up x3.
--- NOTE | 2018-12-04 13:00 | NUR ---
Patient complains of a sharp epigastric pain upon finished 100% of her lunch. Patient is repositioned and head of bed remains elevated. Vital signs are stable.
--- NOTE | 2018-12-04 13:30 | NUR ---
Epigastric pain is reassessed and patient states that she feels much better after some time has passed after eating her lunch.
[2018-12-04 15:32] LABS: PROTHROMBIN TIME 11.9 SECONDS (9.7-12.8)
[2018-12-04 15:34] LABS: PARTIAL THROMBOPLASTIN TIME 29.8 SECONDS (26.0-37.0)
[2018-12-04 15:40] LABS: HEMOGLOBIN 10.4 g/dl (12.5-16.0); MEAN CELL VOLUME 93 fl (80.0-100.0); MEAN CORPUSCULAR HEMOGLOBIN 30 pg (27.0-31.0); MEAN CORPUSCULAR HGB CONC 32 g/dl (33.0-37.0); MEAN PLATELET VOLUME 10.2 fl (7.4-10.4); PLATELET COUNT 174 K/mm3 (130-400); RED BLOOD COUNT 3.51 M/mm3 (4.10-5.30); REDCELL DISTRIBUTION WIDTH-CV 15.5 % (11.5-14.5)
[2018-12-04 15:53] LABS: HEMATOCRIT 32.6 % (37.0-47.0)
--- NOTE | 2018-12-04 18:32 | NUR ---
Report called to NAILA Gonzalez on medical. Nurse has no questions or concerns at this time.
--- NOTE | 2018-12-04 19:45 | NUR ---
Patient transferred to medical bed 317 via wheelchair with no complications. NAILA Gonzalez notified of patient arrival and verified Heparin gtt with me. Patient is stable and has no complaints or concerns at this time. Call light within reach. Bed in lowest position. Side rails up x2.
--- NOTE | 2018-12-04 20:24 | NUR ---
Arrived from ICU. Assessment complete. All lungs rose with wheezing on expiration. Heart sounds normal. Bowels active x4. Pulses present throughout. Bilateral lower leg edema +1. Denies pain at this time. Orientated to medical floor. Heparin infusing at 10ml/hr as ordered into left wrist without complications. Call light in reach.
--- NOTE | 2018-12-04 20:59 | NUR ---
CALLED TO ROOM. Patient reports anxiety attack. States at home she takes norco and ativan to help. Patient winded with tremors. Reports this happens every night since Mar 2018. Obtained order for ativan 0.5 oral. Provided to patient. VS taken. Blood pressure elevated. Will closely monitor
[2018-12-05] VITALS (12 sets, daily range): BP systolic 111–174; BP diastolic 59–87; PULSE 59–78; TEMP 97.8–97.9
--- NOTE | 2018-12-05 01:34 | NUR ---
Resting in bed. Call light in reach.
--- NOTE | 2018-12-05 02:39 | NUR ---
Up to restroom and returned to bed.
--- NOTE | 2018-12-05 05:23 | NUR ---
Patient reported anxiety attack earlier in shift. Was provided with PRN norco and ativan. Otherwise uneventful night. Resting in bed this AM.
[2018-12-05 06:16] LABS: BASO % 0.4 % (0.0-2.0); EOS # 0.3 (0.0-0.7); GRAN # 3.7 (1.4-6.5); GRAN % 51.6 % (42.2-75.2); HEMOGLOBIN 11.2 g/dl (12.5-16.0); LYMPH # 2.6 (1.2-3.4); LYMPH % 36.6 % (20.0-51.0); MEAN CELL VOLUME 92 fl (80.0-100.0); MEAN CORPUSCULAR HEMOGLOBIN 30 pg (27.0-31.0); MEAN CORPUSCULAR HGB CONC 32 g/dl (33.0-37.0); MEAN PLATELET VOLUME 10.4 fl (7.4-10.4); MONO # 0.5 (0.1-0.6); MONO % 7.1 % (1.7-9.3); PLATELET COUNT 175 K/mm3 (130-400); RED BLOOD COUNT 3.78 M/mm3 (4.10-5.30); REDCELL DISTRIBUTION WIDTH-CV 15.4 % (11.5-14.5)
[2018-12-05 06:25] LABS: ALBUMIN 3.5 gm/dL (3.5-5.0); BILIRUBIN,TOTAL 0.7 mg/dL (0.0-1.0); CALCIUM 8.9 mg/dL (8.4-10.2); CREATININE, serum 1.04 (0.52-1.25); POTASSIUM 4.3 mmol/L (3.4-5.0); TOTAL PROTEIN 6.5 gm/dL (6.4-8.2)
[2018-12-05 06:38] LABS: HEMATOCRIT 34.9 % (37.0-47.0)
--- NOTE | 2018-12-05 07:13 | NUR ---
Report given to Telma RN
--- NOTE | 2018-12-05 07:20 | NUR ---
PATIENT WENT TO DOWN TO FELT WASHING MACHINE TENDER AT THIS TIME.
--- NOTE | 2018-12-05 07:52 | NUR ---
ALL MEDICATIONS GIVEN VORB WITH MD. SEE MERGE FOR ALL MEDICATION ADMIN TIMES. SEE MERGE FOR ALL RASS ASSESSMENTS DURING AND POST PROCEDURE. HEPARIN GTT DISCONTINUED AT 0725 PER MD ORDERS. ASPIRIN GIVEN PRE PROCEDURE, PER MD ORDERS. +2 RADIAL PULSE.
--- NOTE | 2018-12-05 09:20 | NUR ---
PATIENT RETURNED BACK TO ROOM FROM CUSTODIAN SUPERVISOR AT THIS TIME. FLAT TIME STARTED AT THIS TIME. SITE OBSERVED POST OP VITALS INITIATED AT THIS TIME. NO COMPLAINTS OF PAIN. DRESSING CLEAN AND IN TACT. BREAKFAST ORDERED AT THIS TIME. FAMILY AT BEDSIDE. WILL CONTINUE TO MONITOR.
--- NOTE | 2018-12-05 09:20 | NUR ---
Patient transported to Medical room 317 at 0856. Patient transported on telemetry. Patient hooked back up to monitoring equipment. VS stable. Bedside report given at 0918. Visualized right groin site with NAILA Garcia. Site is clean, dry, and intact. No hematoma present or oozing noted. Site is soft and non tender. Discussed importance of flat time and restrictions with patient. All questions addressed at this time. MD notified about patient DPOA wanting information from procedure.
[2018-12-05] MEDS ORDERED: ASPIRIN E.C. 8181 MG PO (10:00)
--- NOTE | 2018-12-05 10:00 | NUR ---
PATIENT EATING BREAKFAST AND IS TOLERATING WELL. VOIDING BY BEDPAN. PATIENT REMAINS FLAT. PATIENT IN [place] POSITION FOR EATING. SITE CLEAN DRY AND INTACT. VITALS WITHIN NORMAL LIMITS.
--- NOTE | 2018-12-05 10:17 | NUR ---
SW attended clinical rounds. The patient is to discharge back home with her and son today, 12/05, with home health services for longterm through [facility]. No additional needs at this time.
--- NOTE | 2018-12-05 11:35 | NUR ---
TELE CALLED TO INFORM US ABOUT PATIENT BEING IN [place]. ASSESSED PATIENT AND PATIENT WAS HAVING MUSCLE SPASMS. LORAZEPAM AND TYLENOL PROVIDED AT THIS TIME. PATIENT TAKES LORAZEPAM AND NORCO TYPICALLY, BUT NORCO NOT ORDERED AT THIS TIME. WILL PROVIDE WHEN AVAILABLE. PATIENT HAS COMPLAINTS ABOUT BACK PAIN AT THIS TIME WELL. WILL CALL FOR NORCO ORDER.
--- NOTE | 2018-12-05 12:30 | NUR ---
NORCO WAS PROVIDED TO PATIENT AT THIS TIME. SPASMS RESIDED AT THIS TIME. PAIN WAS BETTER BUT STILL REQUESTED THE NORCO BE GIVEN. NO OTHER ISSUES/CONCERNS AT THIS TIME.
--- NOTE | 2018-12-05 14:20 | NUR ---
FLAT TIME ENDED AT THIS TIME. PATIENT WAS ASSISTED TO THE BATHROOM AND UP WALKING. VITALS TAKEN AFTERWARDS. DRESSING WAS CLEAN AND IN TACT. NO NOTED PAIN AT THIS TIME. VITALS WERE WITHIN NORMAL LIMITS. DISCHARGE PAPERWORK BEING PROCESSED AT THIS TIME. IV REMOVED. FAMILY TAKING THINGS OUT TO CAR. WILL ASSIST PATIENT OUT OF FACILITY WHEN READY.
--- NOTE | 2018-12-05 14:25 | NUR ---
PATIENT WAS WHEELED OUT BY THIS NURSE IN A WHEELCHAIR TO VEHICLE WITH FAMILY.
== END 2018-12-05 14:25 | disposition home or self-care (01) ==
LOC: COL.ER 01:45 → ICU 06:20 → MEDICAL 06:20
PROVIDERS: Emergency Medicine; Nurse Practitioner Family; ADMIT Internal Medicine
DX: R07.9 Chest pain, unspecified (principal); E78.5 Hyperlipidemia, unspecified; K21.9 Gastro-esophageal reflux disease without esophagitis; K44.9 Diaphragmatic hernia without obstruction or gangrene; I25.10 Atherosclerotic heart disease of native coronary artery without angina pectoris; Z95.5 Presence of coronary angioplasty implant and graft; Z95.0 Presence of cardiac pacemaker; F41.9 Anxiety disorder, unspecified; Z90.49 Acquired absence of other specified parts of digestive tract; Z96.653 Presence of artificial knee joint, bilateral; Z96.642 Presence of left artificial hip joint; Z96.641 Presence of right artificial hip joint; Z79.899 Other long term (current) drug therapy; Z79.02 Long term (current) use of antithrombotics/antiplatelets; Z88.8 Allergy status to other drugs, medicaments and biological substances; F32.9 Major depressive disorder, single episode, unspecified; G89.29 Other chronic pain; M54.9 Dorsalgia, unspecified
CPT/HCPCS: G0378; G0379; J1644; J2250; J2270; J3010; J7030; Q9967

== ENCOUNTER 2018-12-08 08:27 | Inpatient (IN) | payer MEDICARE, MEDICAID ==
[~2018-12-08] VITALS: Ht 165.1 cm; Wt 98.5 kg
[~2018-12-08 08:27] MED LIST changes: +ABILIFY5 MG PO; +PERFOROMIS20 MCG/2 M IH; +[UNRECOGNIZED DRUG - MIXTURE]
[2018-12-29] VITALS (13 sets, daily range): BP systolic 133–169; BP diastolic 57–79; PULSE 56–74; TEMP 97.4–98
--- NOTE | 2018-12-29 08:09 | NUR ---
Admitted to room 7 per wheelchair and transfers from wheelchair to cart with standby assist. States that she has been doing physical therapy 3 times per week to get her strength up. IV started by Jalil Driscoll CRNA using ultrasound machine.
[2018-12-29] MEDS ORDERED: PLAVIX 75MG TAB75 MG PO (08:19)
--- NOTE | 2018-12-29 11:30 | NUR ---
PATIENT ARRIVED TO ROOM 324 VIA BED FROM PACU. PATIENT IS DROWSY, BUT AROUSES EASILY TO NAME. POST-OP VSS. ABDOMINAL LAP SITES X6 ARE LEDA WITH MELTON SET IN PLACE, AND EDGES WELL APPROXIMATED. FAMILY PRESENT AT THE BEDSIDE. CALL LIGHT WITHIN REACH. NO NEEDS AT THIS TIME.
--- NOTE | 2018-12-29 13:12 | NUR ---
PATIENT TOLERATING CLEAR LIQUIDS. PATIENT GIVEN ORAL PAIN PILL FOR PAIN RATED AN 8/10 ON A 0-10 SCALE.
--- NOTE | 2018-12-29 14:22 | NUR ---
PATIENT REPORTS NAUESA. PATIENT GIVEN PRN DOSE OF IV ZOFRAN.
--- NOTE | 2018-12-29 18:46 | NUR ---
REPORT GIVEN TO NAILA BLANCO.
[2018-12-30] VITALS (7 sets, daily range): BP systolic 112–145; BP diastolic 46–62; PULSE 59–64; TEMP 97.7–98
--- NOTE | 2018-12-30 00:54 | NUR ---
Patient doing well this shift. States she feels very tired. Complained of pain to esophagus. PRN pain medication given and effective. Up to commode with 1A from staff. Voids with no difficulty. Denies any other needs. Currently resting with call light in reach. Will continue to monitor.
[2018-12-30 06:29] LABS: BASO % 0.1 % (0.0-2.0); GRAN # 8.1 (1.4-6.5); GRAN % 79.5 % (42.2-75.2); HEMOGLOBIN 10.3 g/dl (12.5-16.0); LYMPH # 1.1 (1.2-3.4); LYMPH % 10.5 % (20.0-51.0); MEAN CELL VOLUME 93 fl (80.0-100.0); MEAN CORPUSCULAR HEMOGLOBIN 30 pg (27.0-31.0); MEAN CORPUSCULAR HGB CONC 32 g/dl (33.0-37.0); MEAN PLATELET VOLUME 10.6 fl (7.4-10.4); MONO % 9.4 % (1.7-9.3); PLATELET COUNT 163 K/mm3 (130-400); RED BLOOD COUNT 3.48 M/mm3 (4.10-5.30); REDCELL DISTRIBUTION WIDTH-CV 14.9 % (11.5-14.5)
[2018-12-30 06:39] LABS: HEMATOCRIT 32.2 % (37.0-47.0)
[2018-12-30 06:43] LABS: CALCIUM 8.8 mg/dL (8.4-10.2); CREATININE, serum 0.89 (0.52-1.25); MAGNESIUM 1.9 mg/dL (1.6-2.3); POTASSIUM 4.5 mmol/L (3.4-5.0)
--- NOTE | 2018-12-30 14:05 | NUR ---
Plan: Plans to Transfer to [facility] for skilled care. Patient stated that she called and setup the services herself. SW to follow-up. Assess: SW met with patient about plan. Patient reports that she is resideing in [facility] and that she is using [facility] health at home. Patient reports that she plans to transfer to [facility] for a skilled stay. Patient reports that her spouse Ravi is her primary DPOA and her son Norberto is secondary at [phone]. Patient indicated that she has DMEs; pacemaker, walker, FWW/sit to stand. PCP is reported as Dr. Galvan and RX obtained from [facility] [address]. Action: Patient will need EMS transport to [place] at time of DC. Patient reports that primary is aware of this need. Medical Ne[place]as[place] form is needed. Continue to follow care to finalize DC assistance.
--- NOTE | 2018-12-30 19:11 | NUR ---
Patient has had few needs today. Administered PRN pain medication upon request. Patient is tolerating full liquid diet well, no reports of nausea vomiting. Patient denies further needs at this time, call light within reach.
--- NOTE | 2018-12-31 02:31 | NUR ---
Patient tolerating full liquid diet well. No nausea noted. Patient complains of a burning pain to upper abdomen. PRN [place] given. Noted to be effective. Patient denies any other needs. Continues to rest well.
[2018-12-31 03:45] VITALS: BP 117/52; PULSE 60; TEMP 98
[2018-12-31 06:42] LABS: CALCIUM 8.6 mg/dL (8.4-10.2); CREATININE, serum 1.04 (0.52-1.25); POTASSIUM 4.3 mmol/L (3.4-5.0)
[2018-12-31 07:53] VITALS: BP 130/54; PULSE 59; TEMP 97.9
[2018-12-31 12:30] VITALS: BP 126/67; PULSE 60; TEMP 98.8
[2018-12-31 16:36] VITALS: BP 135/52; PULSE 66; TEMP 98.1
--- NOTE | 2018-12-31 18:21 | NUR ---
Patient has rested intermittently during the day. Patient has had little pain, administered one PRN [place] per patient request this evening. Patient denies needs at this time, call light within reach.
[2018-12-31 19:16] VITALS: BP 126/59; PULSE 71; TEMP 98.6
[2019-01-01 00:13] VITALS: BP 145/55; PULSE 61; TEMP 98.2
--- NOTE | 2019-01-01 02:28 | NUR ---
Patient noted to complain of a cough and requested cough medication. Gillian updated and order received for Robitussin. Administered. Patient stated that she had coughed up a "little bit of clear stuff". Appears to be sleeping well at this time. Will continue to monitor.
[2019-01-01 04:02] VITALS: BP 137/54; PULSE 62; TEMP 98.2
[2019-01-01 06:42] LABS: HEMOGLOBIN 10.5 g/dl (12.5-16.0); MEAN CELL VOLUME 92 fl (80.0-100.0); MEAN CORPUSCULAR HEMOGLOBIN 29 pg (27.0-31.0); MEAN CORPUSCULAR HGB CONC 32 g/dl (33.0-37.0); MEAN PLATELET VOLUME 10.8 fl (7.4-10.4); PLATELET COUNT 162 K/mm3 (130-400); RED BLOOD COUNT 3.58 M/mm3 (4.10-5.30); REDCELL DISTRIBUTION WIDTH-CV 15.1 % (11.5-14.5)
[2019-01-01 06:45] LABS: HEMATOCRIT 32.8 % (37.0-47.0)
[2019-01-01 06:57] LABS: CALCIUM 8.8 mg/dL (8.4-10.2); CREATININE, serum 1.1 (0.52-1.25); POTASSIUM 4.1 mmol/L (3.4-5.0)
[2019-01-01 08:09] VITALS: BP 145/53; PULSE 61; TEMP 97.5
--- NOTE | 2019-01-01 09:35 | NUR ---
Patient alert and oriented, answers questions appropriately. See assessment. Abdomen soft, non tender, non distended. Bowel sounds active x4 quads. +Flatus. Abdomen lap sites with edges well approximated, no drainage or redness noted. No c/o pain or discomfort at this time.
--- NOTE | 2019-01-01 09:53 | NUR ---
Follow-up visit; Patient is doing well and hopes to be transferred to further rehabilitation soon. Rn Interventional listened and offered [place] prayer and God's blessings for a thorough recovery.
--- NOTE | 2019-01-01 10:09 | NUR ---
YASMINE spoke with patient's nurse about discharge. Nurse reports patient can discharge today to [facility] in [place]. YASMINE contacted Marilyn from [facility] and they are prepared to admit patient today. YASMINE met with patient about discharge. YASMINE reported that [facility] is able to come provide transportation. Patient is agreeable to this. YASMINE presented IM to patient. She signed, verbalized understanding, and signed. YASMINE provided a copy to patient. YASMINE will fax discharge orders once they're completed.
--- NOTE | 2019-01-01 10:57 | NUR ---
YASMINE faxed discharge orders to [facility]. Patient will discharge today 01/01 for a skilled stay.
--- NOTE | 2019-01-01 11:15 | NUR ---
PICC removed per order/protocol with no complication.
[2019-01-01 11:28] VITALS: BP 145/53; PULSE 61; TEMP 97.5
--- NOTE | 2019-01-01 12:02 | NUR ---
Patient transferred to [facility] via auto with [facility] transporation at 1155. Paperwork sent, report called.
== END 2019-01-01 11:55 | disposition swing bed (61) | DRG 328 ==
LOC: INPTSU 12-29 05:51 → SDCO 12-29 08:00 → EDSTATUS 12-29 08:00 → SURG 12-29 08:00
PROVIDERS: Internal Medicine; Physician Assistant; Student in an Organized Health Care Education/Training Program; ADMIT Surgery
PROC: 0DV44ZZ Restriction of Esophagogastric Junction, Percutaneous Endoscopic Approach (ICD-10-PCS; 2018-12-29)
PROC: 8E0W4CZ Robotic Assisted Procedure of Trunk Region, Percutaneous Endoscopic Approach (ICD-10-PCS; 2018-12-29)
PROC: 02HV33Z Insertion of Infusion Device into Superior Vena Cava, Percutaneous Approach (ICD-10-PCS; 2018-12-29)
PROC: 0BUT4JZ Supplement Diaphragm with Synthetic Substitute, Percutaneous Endoscopic Approach (ICD-10-PCS; principal; 2018-12-29 08:00)
DX: K44.9 Diaphragmatic hernia without obstruction or gangrene (principal); E66.01 Morbid (severe) obesity due to excess calories; I25.10 Atherosclerotic heart disease of native coronary artery without angina pectoris; E78.5 Hyperlipidemia, unspecified; F41.9 Anxiety disorder, unspecified; F32.9 Major depressive disorder, single episode, unspecified; G89.29 Other chronic pain; M54.9 Dorsalgia, unspecified; M19.90 Unspecified osteoarthritis, unspecified site; K21.9 Gastro-esophageal reflux disease without esophagitis; Z68.36 Body mass index [BMI] 36.0-36.9, adult; Z95.0 Presence of cardiac pacemaker; Z95.5 Presence of coronary angioplasty implant and graft; Z90.710 Acquired absence of both cervix and uterus; Z88.1 Allergy status to other antibiotic agents
CPT/HCPCS: 99223; A4314; A9284; C1751; C1781; J1100; J2270; J2405; J2704; J2710; J3010; J7120

== ENCOUNTER 2018-12-15 02:34 | Emergency (ER) | payer MEDICARE, MEDICAID ==
[2006-09-25 22:38] VITALS: BP 187/94
[~2018-12-15] VITALS: Ht 152.4 cm; Wt 95.5 kg
[2018-12-15 03:21] VITALS: TEMP 98
[2018-12-15 03:30] VITALS: BP 152/74; PULSE 62
== END 2018-12-15 03:30 | disposition home or self-care (01) ==
LOC: COL.ER 02:34
DX: I80.11 Phlebitis and thrombophlebitis of right femoral vein (principal); I25.10 Atherosclerotic heart disease of native coronary artery without angina pectoris; I10 Essential (primary) hypertension; E78.5 Hyperlipidemia, unspecified; K21.9 Gastro-esophageal reflux disease without esophagitis; Z79.82 Long term (current) use of aspirin; Z95.0 Presence of cardiac pacemaker; Z95.5 Presence of coronary angioplasty implant and graft

== ENCOUNTER 2019-01-21 23:04 | Emergency (ER) | payer MEDICARE, MEDICAID ==
[2006-09-25 22:38] VITALS: BP 187/94
[~2019-01-21] VITALS: Ht 162.6 cm; Wt 96.4 kg
[2019-01-21 23:08] VITALS: TEMP 97.6
[2019-01-22 00:32] LABS: BASO % 0.5 % (0.0-2.0); EOS # 0.6 (0.0-0.7); EOS % 6.8 % (0-4.0); GRAN % 57.3 % (42.2-75.2); HEMOGLOBIN 10.3 g/dl (12.5-16.0); LYMPH # 2.3 (1.2-3.4); LYMPH % 26.1 % (20.0-51.0); MEAN CELL VOLUME 90 fl (80.0-100.0); MEAN CORPUSCULAR HEMOGLOBIN 29 pg (27.0-31.0); MEAN CORPUSCULAR HGB CONC 32 g/dl (33.0-37.0); MEAN PLATELET VOLUME 9.6 fl (7.4-10.4); MONO # 0.8 (0.1-0.6); MONO % 9.1 % (1.7-9.3); PLATELET COUNT 244 K/mm3 (130-400); RED BLOOD COUNT 3.55 M/mm3 (4.10-5.30); REDCELL DISTRIBUTION WIDTH-CV 14.5 % (11.5-14.5)
[2019-01-22 00:33] LABS: HEMATOCRIT 31.8 % (37.0-47.0)
[2019-01-22 00:46] LABS: ALBUMIN 3.7 gm/dL (3.5-5.0); BILIRUBIN,TOTAL 0.3 mg/dL (0.0-1.0); C-REACTIVE PROTEIN 2.3 mg/dL (0.0-0.9); CREATININE, serum 1.13 (0.52-1.25); POTASSIUM 4.1 mmol/L (3.4-5.0); TOTAL PROTEIN 6.7 gm/dL (6.4-8.2)
[2019-01-22 00:57] LABS: ERYTHROCYTE SEDIMENTATION RATE 42 mm/hr (0-30)
[2019-01-22] MEDS ORDERED: PREDNISONE20 MG PO (01:45)
[2019-01-22 03:40] VITALS: BP 114/60; PULSE 70
== END 2019-01-22 03:40 | disposition home or self-care (01) ==
LOC: COL.ER 23:04
PROVIDERS: Emergency Medicine
DX: R51 Headache (principal); I25.10 Atherosclerotic heart disease of native coronary artery without angina pectoris; I10 Essential (primary) hypertension; Z95.0 Presence of cardiac pacemaker
CPT/HCPCS: J1200; J2060; J2405; J2550; J3010; J7040; J7512

== ENCOUNTER 2019-02-10 00:32 | Emergency (ER) | payer MEDICARE, MEDICAID ==
[2006-09-25 22:38] VITALS: BP 187/94
[~2019-02-10] VITALS: Ht 162.6 cm; Wt 96.4 kg
[2019-02-10 00:42] VITALS: TEMP 97.2
[2019-02-10 01:43] LABS: BASO % 0.2 % (0.0-2.0); EOS # 0.4 (0.0-0.7); EOS % 4.4 % (0-4.0); GRAN # 5.2 (1.4-6.5); GRAN % 57.1 % (42.2-75.2); HEMATOCRIT 32.3 % (37.0-47.0); HEMOGLOBIN 10.3 g/dl (12.5-16.0); LYMPH # 2.5 (1.2-3.4); MEAN CELL VOLUME 91 fl (80.0-100.0); MEAN CORPUSCULAR HEMOGLOBIN 29 pg (27.0-31.0); MEAN CORPUSCULAR HGB CONC 32 g/dl (33.0-37.0); MEAN PLATELET VOLUME 9.2 fl (7.4-10.4); MONO # 0.9 (0.1-0.6); MONO % 9.7 % (1.7-9.3); PLATELET COUNT 191 K/mm3 (130-400); RED BLOOD COUNT 3.56 M/mm3 (4.10-5.30); REDCELL DISTRIBUTION WIDTH-CV 15.4 % (11.5-14.5)
[2019-02-10 01:57] LABS: ALANINE AMINOTRANSFERASE 11 U/L (9-52); ALBUMIN 3.6 gm/dL (3.5-5.0); ALKALINE PHOSPHATASE 75 U/L (50-136); ANION GAP 5 mmol/L (7-16); AST,SGOT 17 U/L (15-37); BILIRUBIN,TOTAL 0.4 mg/dL (0.0-1.0); BLOOD UREA NITROGEN 25 mg/dL (7-17); C-REACTIVE PROTEIN 1.2 mg/dL (0.0-0.9); CALCIUM 8.9 mg/dL (8.4-10.2); CARBON DIOXIDE 26 mmol/L (22-30); CHLORIDE 106 mmol/L (98-107); CREATININE, serum 1.45 (0.52-1.25); GLUCOSE 89 mg/dL (74-106); POTASSIUM 4.6 mmol/L (3.4-5.0); SODIUM 138 mmol/L (137-145); TOTAL PROTEIN 6.6 gm/dL (6.4-8.2)
[2019-02-10 02:08] LABS: TROPONIN-I < 0.012 ng/mL (0.000-0.035)
[2019-02-10] MEDS ORDERED: TESSALON P100 MG/CAP PO (03:02)
[2019-02-10] MEDS ORDERED: PREDNISONE20 MG PO (03:02)
[2019-02-10 03:47] VITALS: BP 135/66; PULSE 71
[2019-02-10] MEDS ORDERED: NYSTATIN POWDER30 GM TOP (03:55)
== END 2019-02-10 03:57 | disposition home or self-care (01) ==
LOC: COL.ER 00:32
PROVIDERS: Emergency Medicine
DX: J44.1 Chronic obstructive pulmonary disease with (acute) exacerbation (principal); I10 Essential (primary) hypertension; I25.10 Atherosclerotic heart disease of native coronary artery without angina pectoris; K21.9 Gastro-esophageal reflux disease without esophagitis; E66.9 Obesity, unspecified; Z79.82 Long term (current) use of aspirin
CPT/HCPCS: J7512

== ENCOUNTER 2019-05-18 19:13 | Emergency (ER) | payer MEDICARE, MEDICAID ==
[2006-09-25 22:38] VITALS: BP 187/94
[~2019-05-18] VITALS: Ht 162.6 cm; Wt 95.5 kg
[~2019-05-18 19:13] MED LIST changes: +NYSTATIN POWDER30 GM TOP
[2019-05-18 20:52] VITALS: BP 168/109; PULSE 68; TEMP 98.2
== END 2019-05-18 20:47 | disposition home or self-care (01) ==
LOC: COL.ER 19:13
DX: M54.81 Occipital neuralgia (principal); I25.10 Atherosclerotic heart disease of native coronary artery without angina pectoris; I10 Essential (primary) hypertension; F41.9 Anxiety disorder, unspecified; K21.9 Gastro-esophageal reflux disease without esophagitis; Z95.0 Presence of cardiac pacemaker; Z79.82 Long term (current) use of aspirin; Z79.52 Long term (current) use of systemic steroids; Z79.02 Long term (current) use of antithrombotics/antiplatelets

== ENCOUNTER 2019-07-31 13:55 | Observation (INO) | payer MEDICARE, MEDICAID ==
[~2019-07-31] VITALS: Ht 165.1 cm; Wt 94.6 kg
[2019-07-31 15:27] LABS: BASO % 0.3 % (0.0-2.0); EOS # 0.2 (0.0-0.7); EOS % 2.4 % (0-4.0); GRAN # 6.3 (1.4-6.5); GRAN % 71.9 % (42.2-75.2); HEMOGLOBIN 12.6 g/dl (12.5-16.0); LYMPH # 1.5 (1.2-3.4); LYMPH % 17.1 % (20.0-51.0); MEAN CELL VOLUME 91 fl (80.0-100.0); MEAN CORPUSCULAR HEMOGLOBIN 29 pg (27.0-31.0); MEAN CORPUSCULAR HGB CONC 32 g/dl (33.0-37.0); MEAN PLATELET VOLUME 9.8 fl (7.4-10.4); MONO # 0.7 (0.1-0.6); PLATELET COUNT 199 K/mm3 (130-400); RED BLOOD COUNT 4.31 M/mm3 (4.10-5.30); REDCELL DISTRIBUTION WIDTH-CV 15.2 % (11.5-14.5)
[2019-07-31 17:11] LABS: ALBUMIN 4.2 gm/dL (3.5-5.0); BILIRUBIN,TOTAL 0.7 mg/dL (0.0-1.0); C-REACTIVE PROTEIN 0.9 mg/dL (0.0-0.9); CALCIUM 9.5 mg/dL (8.4-10.2); CREATININE, serum 1.37 (0.52-1.25); POTASSIUM 4.1 mmol/L (3.4-5.0); TOTAL PROTEIN 7.4 gm/dL (6.4-8.2)
[2019-07-31 18:28] LABS: COLLECTION METHOD CLEAN CATCH
[2019-07-31 18:36] LABS: PH 7 (5-8); SQUAMOUS EPITHELIAL 0-2 /hpf; URINE APPEARANCE Clear; URINE BACTERIA Rare /hpf; URINE BILIRUBIN Negative (NEGATIVE); URINE BLOOD 1+ (NEGATIVE); URINE COLOR Straw; URINE GLUCOSE Negative (NEGATIVE); URINE KETONE Negative (NEGATIVE); URINE LEUKOCYTE ESTERASE 1+ (NEGATIVE); URINE NITRATE Negative (NEGATIVE); URINE PROTEIN(semi-quant) Negative (NEGATIVE); URINE RBC 0-2 /hpf; URINE UROBILINOGEN Negative (NEGATIVE)
--- NOTE | 2019-07-31 21:00 | NUR ---
Patient arrived from ED via w/c and assist of ED RD. Denies pain. Denies further needs at this time, will continue to monitor.
[2019-07-31 21:10] VITALS: BP 158/65; PULSE 62; TEMP 97.8
[2019-07-31 23:00] VITALS: BP 167/78; PULSE 65; TEMP 98.4
[2019-08-01 03:14] VITALS: BP 140/63; PULSE 71; TEMP 97.6
[2019-08-01 07:32] LABS: BASO % 0.3 % (0.0-2.0); EOS # 0.3 (0.0-0.7); EOS % 3.1 % (0-4.0); GRAN # 7.1 (1.4-6.5); GRAN % 69.5 % (42.2-75.2); HEMOGLOBIN 12.1 g/dl (12.5-16.0); LYMPH % 19.5 % (20.0-51.0); MEAN CELL VOLUME 90 fl (80.0-100.0); MEAN CORPUSCULAR HEMOGLOBIN 30 pg (27.0-31.0); MEAN CORPUSCULAR HGB CONC 33 g/dl (33.0-37.0); MEAN PLATELET VOLUME 9.9 fl (7.4-10.4); MONO # 0.7 (0.1-0.6); MONO % 7.2 % (1.7-9.3); PLATELET COUNT 219 K/mm3 (130-400); RED BLOOD COUNT 4.09 M/mm3 (4.10-5.30); REDCELL DISTRIBUTION WIDTH-CV 15.1 % (11.5-14.5)
[2019-08-01 07:41] LABS: HEMATOCRIT 36.9 % (37.0-47.0)
[2019-08-01 07:52] LABS: CALCIUM 9.1 mg/dL (8.4-10.2); CREATININE, serum 1.01 (0.52-1.25); POTASSIUM 4.1 mmol/L (3.4-5.0)
[2019-08-01 07:59] VITALS: BP 132/54; PULSE 60; TEMP 97.9
--- NOTE | 2019-08-01 11:03 | NUR ---
Patient is alert and oriented. she said she had loose stool yesterday but none today so far. patient walked to the toilet and back to bed independently. she requested the bed alarm shut off stating she is able to ambulate without personnel security assistant. Alarm turned off. patient was advise to call for help when needed.
[2019-08-01 13:02] VITALS: BP 136/58; PULSE 64; TEMP 98.6
--- NOTE | 2019-08-01 16:37 | NUR ---
patient a/o, denies any pain. patient IV discontinued. patient confirm he understand discharge instruction, upcoming appointment and medication reconciliation. Patient discharged. patient was wheeled down.
[2019-08-01 16:38] VITALS: BP 191/78; PULSE 68; TEMP 98.4
--- NOTE | 2019-08-01 17:09 | NUR ---
Band Saw Runner met with patient to discuss discharge planning. Patient lives in [place] with her Ravi (ph#[phone]) and son Ed (ph#[phone]). Patient sees Dr. Meng for primary care and obtains medications from [facility] with no difficulties. Patient uses a cane and four wheeled walker. Patient reports independence with ADLS. Patient states she has DPOA-HC which designates her son Ed. Patient plans to return home upon discharge. No additional concerns at this time.
== END 2019-08-01 17:20 | disposition home or self-care (01) ==
LOC: COL.ER 13:55 → MEDICAL 17:25
PROVIDERS: Emergency Medicine; ADMIT Student in an Organized Health Care Education/Training Program
DX: A08.4 Viral intestinal infection, unspecified (principal); R53.1 Weakness; R55 Syncope and collapse; I11.0 Hypertensive heart disease with heart failure; I50.22 Chronic systolic (congestive) heart failure; E78.5 Hyperlipidemia, unspecified; I49.5 Sick sinus syndrome; I25.10 Atherosclerotic heart disease of native coronary artery without angina pectoris; K21.9 Gastro-esophageal reflux disease without esophagitis; K44.9 Diaphragmatic hernia without obstruction or gangrene; F41.9 Anxiety disorder, unspecified; F32.9 Major depressive disorder, single episode, unspecified; J44.9 Chronic obstructive pulmonary disease, unspecified; M19.90 Unspecified osteoarthritis, unspecified site; Z95.0 Presence of cardiac pacemaker; Z88.1 Allergy status to other antibiotic agents; Z88.8 Allergy status to other drugs, medicaments and biological substances; Z88.6 Allergy status to analgesic agent; Z79.02 Long term (current) use of antithrombotics/antiplatelets; Z90.49 Acquired absence of other specified parts of digestive tract; Z96.653 Presence of artificial knee joint, bilateral; Z96.643 Presence of artificial hip joint, bilateral; Z79.82 Long term (current) use of aspirin
CPT/HCPCS: G0378; J7030

== ENCOUNTER 2020-01-26 11:25 | Emergency (ER) | payer MEDICARE, MEDICAID ==
[2006-09-25 22:38] VITALS: BP 187/94
[~2020-01-26] VITALS: Ht 162.6 cm; Wt 98.6 kg
[2020-01-26 11:31] VITALS: TEMP 98
[2020-01-26 11:47] LABS: BASO % 0.4 % (0.0-2.0); EOS # 0.2 (0.0-0.7); EOS % 3.1 % (0-4.0); GRAN # 4.5 (1.4-6.5); GRAN % 59.5 % (42.2-75.2); HEMATOCRIT 40.1 % (37.0-47.0); HEMOGLOBIN 13.1 g/dl (12.5-16.0); LYMPH # 2.2 (1.2-3.4); MEAN CELL VOLUME 90 fl (80.0-100.0); MEAN CORPUSCULAR HEMOGLOBIN 29 pg (27.0-31.0); MEAN CORPUSCULAR HGB CONC 33 g/dl (33.0-37.0); MEAN PLATELET VOLUME 9.7 fl (7.4-10.4); MONO # 0.6 (0.1-0.6); MONO % 7.6 % (1.7-9.3); PLATELET COUNT 207 K/mm3 (130-400); RED BLOOD COUNT 4.45 M/mm3 (4.10-5.30); REDCELL DISTRIBUTION WIDTH-CV 14.6 % (11.5-14.5)
[2020-01-26 11:59] LABS: ALANINE AMINOTRANSFERASE 14 U/L (4-34); ALBUMIN 3.9 gm/dL (3.5-5.0); ALKALINE PHOSPHATASE 73 U/L (50-136); ANION GAP 8 mmol/L (7-16); AST,SGOT 19 U/L (15-37); BILIRUBIN,TOTAL 0.7 mg/dL (0.0-1.0); BLOOD UREA NITROGEN 18 mg/dL (7-17); CALCIUM 9.4 mg/dL (8.4-10.2); CARBON DIOXIDE 24 mmol/L (22-30); CHLORIDE 105 mmol/L (98-107); CREATININE, serum 1.22 (0.52-1.25); GLUCOSE 140 mg/dL (74-106); LIPASE 71 U/L (23-300); SODIUM 137 mmol/L (137-145); TOTAL PROTEIN 7.2 gm/dL (6.4-8.2)
[2020-01-26 12:00] LABS: PROTHROMBIN TIME 11.7 SECONDS (9.7-12.8)
[2020-01-26 12:02] LABS: PARTIAL THROMBOPLASTIN TIME 33.3 SECONDS (26.0-37.0)
[2020-01-26] MEDS ORDERED: ABILIFY5 MG PO (12:11)
[2020-01-26] MEDS ORDERED: PRAVACHOL 40MG40 MG PO (12:14)
[2020-01-26 12:20] LABS: TROPONIN-I < 0.012 ng/mL (0.000-0.035)
[2020-01-26] MEDS ORDERED: ZOFRAN 4MG T4 MG/TAB PO (15:42)
[2020-01-26] MEDS ORDERED: CARAFATE 1GM1 G PO (15:42)
[2020-01-26 16:26] VITALS: BP 129/74; PULSE 69
== END 2020-01-26 16:26 | disposition home or self-care (01) ==
LOC: COL.ER 11:25
PROVIDERS: Emergency Medicine
DX: K21.9 Gastro-esophageal reflux disease without esophagitis (principal); E78.5 Hyperlipidemia, unspecified; I25.10 Atherosclerotic heart disease of native coronary artery without angina pectoris; I50.9 Heart failure, unspecified; F41.9 Anxiety disorder, unspecified; F32.9 Major depressive disorder, single episode, unspecified; Z95.5 Presence of coronary angioplasty implant and graft; Z95.0 Presence of cardiac pacemaker; Z88.6 Allergy status to analgesic agent; Z88.1 Allergy status to other antibiotic agents; Z88.8 Allergy status to other drugs, medicaments and biological substances; Z79.02 Long term (current) use of antithrombotics/antiplatelets
CPT/HCPCS: J2405

== ENCOUNTER 2020-02-13 09:59 | Observation (INO) | payer MEDICARE, MEDICAID ==
[~2020-02-13] VITALS: Ht 165.1 cm; Wt 92.8 kg
[2020-02-13 10:25] LABS: BASO % 0.4 % (0.0-2.0); EOS # 0.2 (0.0-0.7); EOS % 2.6 % (0-4.0); GRAN # 5.3 (1.4-6.5); GRAN % 58.2 % (42.2-75.2); HEMATOCRIT 41.1 % (37.0-47.0); HEMOGLOBIN 13.4 g/dl (12.5-16.0); LYMPH # 2.8 (1.2-3.4); LYMPH % 31.1 % (20.0-51.0); MEAN CELL VOLUME 91 fl (80.0-100.0); MEAN CORPUSCULAR HEMOGLOBIN 30 pg (27.0-31.0); MEAN CORPUSCULAR HGB CONC 33 g/dl (33.0-37.0); MEAN PLATELET VOLUME 9.3 fl (7.4-10.4); MONO # 0.7 (0.1-0.6); MONO % 7.4 % (1.7-9.3); PLATELET COUNT 226 K/mm3 (130-400); RED BLOOD COUNT 4.54 M/mm3 (4.10-5.30); REDCELL DISTRIBUTION WIDTH-CV 14.6 % (11.5-14.5)
[2020-02-13 10:36] LABS: ALANINE AMINOTRANSFERASE 20 U/L (4-34); ALKALINE PHOSPHATASE 81 U/L (50-136); ANION GAP 9 mmol/L (7-16); AST,SGOT 18 U/L (15-37); BLOOD UREA NITROGEN 19 mg/dL (7-17); CALCIUM 9.2 mg/dL (8.4-10.2); CARBON DIOXIDE 25 mmol/L (22-30); CHLORIDE 103 mmol/L (98-107); CREATININE, serum 1.18 (0.52-1.25); GLUCOSE 102 mg/dL (74-106); LIPASE 132 U/L (23-300); POTASSIUM 4.3 mmol/L (3.4-5.0); SODIUM 136 mmol/L (137-145); TOTAL PROTEIN 7.2 gm/dL (6.4-8.2)
[2020-02-13 10:40] LABS: PROTHROMBIN TIME 11.7 SECONDS (9.7-12.8)
[2020-02-13 10:50] LABS: TROPONIN-I < 0.012 ng/mL (0.000-0.035)
--- NOTE | 2020-02-13 13:30 | NUR ---
Pt admitted to medical unit rm 353 from ED via WC, A&O x 4. Physical assessment unremarkable. Pt reports minimal pain at this time 1 out of 10 to left chest. Nitro paste in place to left shoulder. IVF's infusing to left AC site, wrapped at this time by this nurse with WILDA wrap per pt's request, no s/s of complications. No further needs reported. Call light in reach.
[2020-02-13 16:01] VITALS: BP 152/80; PULSE 80; TEMP 97.8
[2020-02-13 16:03] VITALS: BP 154/80; PULSE 80; TEMP 97.8
[2020-02-13 17:46] VITALS: BP 171/78; PULSE 81; TEMP 98.5
--- NOTE | 2020-02-13 18:10 | NUR ---
IVF's disconnected per verbal order to discontinue IVF's. Pt able to eat and drink now and made aware of tray on its way. Call light in reach.
[2020-02-13 19:22] VITALS: BP 171/95; PULSE 80; TEMP 98.4
--- NOTE | 2020-02-13 20:30 | NUR ---
Initial shift assessment done- denies any chest pain at this time, denies SOB, Up to bathroom on her own- steady on feet. Tele on. B/P borderline high 170/90,s--due for nightly blood pressure meds now. Would like a [place] before bed tonight -states that what she takes at home,, to help her relax and sleep-- it is ordered so will give tonight.
[2020-02-13 21:40] VITALS: BP 186/74; PULSE 81; TEMP 98.1
[2020-02-13 23:12] VITALS: BP 138/59; PULSE 80; TEMP 98.2
[2020-02-14] VITALS (8 sets, daily range): BP systolic 111–162; BP diastolic 56–93; PULSE 72–81; TEMP 97.6–98.6
--- NOTE | 2020-02-14 06:09 | NUR ---
Did sleep well last night-- denies any chest pain, B/P STABLE. TELE ON.
--- NOTE | 2020-02-14 09:12 | NUR ---
Initial visit; Patient thanked Settlement Technician for coming in and visiting. She remembered Settlement Technician from previous visits and was receptive to prayer and thanked Settlement Technician for encouragement and comfort and would like continued visits.
--- NOTE | 2020-02-14 09:17 | NUR ---
Pt assessment completed and charted. Medications administered per jul. Pt A&O, independent in room. Pt on room air, breathing even and unlabored. Pt denies SOB, N/V/D. Pt states she has some chest pressure, states its the same that she came in with, denies need for pain medication. Pulses strong bilaterally. Pt has LAC INT IV flushes w.o difficulty. No further needs at this time.
--- NOTE | 2020-02-14 14:48 | NUR ---
YASMINE met with the patient to discuss discharge plan. The patient lives outside of [place] with her , Ravi (ph#[phone]), and son, Nelsy (ph#[phone]). She reports independence with some ADLs and has a cane and rolaider. She uses the cane for shorter distances and the rolaider for longer distances. She states that she private [place] [facility] She also receives home health services for shelter from [facility] once a week. YASMINE contacted and confirmed services from Luzmaria at [facility]. YASMINE faxed updates to [facility]. The patient's PCP is Dr. Cyrus Meng and she receives her medications at [facility]. She reports no difficulties obtaining her meds. The patient's advance directives are in EMR. Her DPOA-HC is her . The patient requested that her son be called and updated though. The patient plans to return home with her family and resume services from [facility]. YASMINE contacted and reviewed d/c plan with the patient's son, Nelsy. Nelsy confirms the above plan and states that he feels comfortable with the patient returning back home with him and his father. SW to continue to follow.
--- NOTE | 2020-02-14 19:04 | NUR ---
Uneventful day for patient. Pt c/o indigestion after lunch, PRN tums administered per JUL. Pt to have heart cath procedure 02/14, consent signed and on chart. No further questions at this time. Report given to NAILA Banerjee.
--- NOTE | 2020-02-14 20:13 | NUR ---
Assessment complete at this time. Patient complains of pain in legs 3/10 and requests PRN [place]. No chest pain or discomfort at this time. Lungs clear, HR normal and regular. Left a/c IV has slight redness surrounding dressing but flushes well with adjustment; Patient states she is a "hard stick" and is not wanting to be poked again if can be avoided.
[2020-02-15] VITALS (20 sets, daily range): BP systolic 101–203; BP diastolic 54–113; PULSE 75–82; TEMP 97.3–98.7
--- NOTE | 2020-02-15 09:25 | NUR ---
Pt down for heart cath at this time. LAC INT IV, flushes, a little leaky. Consent on chart, all questions answered.
--- NOTE | 2020-02-15 09:57 | NUR ---
SEE MERGE DOCUMENTATION FOR MEDICATION ADMINISTRATION TIMES AND INTRA/POST PROCEDURE SEDATION ASSESSMENTS.
--- NOTE | 2020-02-15 10:56 | NUR ---
Pt back from heart cath procedures, no interventions done. Pt hooked up to post op vitals monitoring, VSS. Pt A&O. Pt son Ed was updated on pt status and is on the way. Pt denies any pain at this time. Rt groin site is CDI, covered w/ gauze and tegaderm, soft to touch, no hematoma. No issues noted.
--- NOTE | 2020-02-15 11:45 | NUR ---
Pt still on flat time, doing ok, VSS, slightly elevated BPs. Pt denies pain. Rt femoral site is CDI, no hematoma, soft to touch, pulses palpable. No further needs at this time.
--- NOTE | 2020-02-15 13:38 | NUR ---
Pt still on post ops, c/o of headache, no other pain. BP increasing, Chantell notified, phone order for 5mg hydralazine, IV once ordered and administered per jul.
[2020-02-15 15:49] LABS: HEMATOCRIT 40.2 % (37.0-47.0); HEMOGLOBIN 13.6 g/dl (12.5-16.0); MEAN CELL VOLUME 88 fl (80.0-100.0); MEAN CORPUSCULAR HEMOGLOBIN 30 pg (27.0-31.0); MEAN CORPUSCULAR HGB CONC 34 g/dl (33.0-37.0); MEAN PLATELET VOLUME 10.1 fl (7.4-10.4); PLATELET COUNT 155 K/mm3 (130-400); RED BLOOD COUNT 4.55 M/mm3 (4.10-5.30); REDCELL DISTRIBUTION WIDTH-CV 14.5 % (11.5-14.5)
[2020-02-15 15:59] LABS: CALCIUM 9.1 mg/dL (8.4-10.2); CREATININE, serum 1.03 (0.52-1.25); POTASSIUM 4.3 mmol/L (3.4-5.0)
--- NOTE | 2020-02-15 16:02 | NUR ---
Chha collaborated with NAILA Breaux who advised patient will not discharge today. YASMINE contacted Najma [facility]ford [place] to provide update. YASMINE will continue to follow.
--- NOTE | 2020-02-15 18:07 | NUR ---
Pt DBP elevated, PRN PO hydralazine administered per jul. Pt not discharging today, will reevaluate in morning. Pt assisted to bathroom, voided fine. Talked w/ Dr. Abdul, pt ok to not have IV access and phone order for PO hydralazine 25MG PRN Q4H. Will continue to monitor.
--- NOTE | 2020-02-15 19:00 | NUR ---
Pt BP rechecked during bedside report, 112/65. Pt states her headache is a little better after taking a nap. Report given to NAILA Reese, and will continue to monitor BPs. Pt educated on using call light for assistance to bathroom.
--- NOTE | 2020-02-15 23:00 | NUR ---
Pt assessment completed and charted, alert, orientated, roomair. Meds provided as per JUL, tolerated well. Helped her settled on bed, call light on reach. bed alarm on. No further needs at this time.
[2020-02-16 02:43] VITALS: BP 146/83; PULSE 84; TEMP 98
--- NOTE | 2020-02-16 06:17 | NUR ---
Pt had an uneventful night, slept through out the night. No further needs at this time.
--- NOTE | 2020-02-16 07:45 | NUR ---
Patient laying in bed, easily awakened with verbal command. A&Ox3 VSS. No IV access, doctor aware. RT groin site, CDI. Denies pain and doscomfort, is hoping to go home today. No further needs expressed from the patient. Call light within reach
[2020-02-16 08:46] VITALS: BP 118/68; PULSE 81; TEMP 97.8
[2020-02-16 08:46] LABS: PARTIAL THROMBOPLASTIN TIME 20.7 SECONDS (26.0-37.0)
--- NOTE | 2020-02-16 11:08 | NUR ---
Discharge paperwork reviewed with the patient. Patient verbalzied an understanding to follow discharge orders. Telemetry removed. Patient states she cannot leave until after lunch. Nurse informed the patient that, that is okay. No further needs expressed from the patient. Call light within reach
[2020-02-16 11:20] VITALS: BP 104/65; PULSE 80; TEMP 97.5
--- NOTE | 2020-02-16 13:30 | NUR ---
Patient taken by wheelchair to vehicle by nursing staff. Discharge paperwork and personal belongings with patient. No further needs expressed from the patient.
== END 2020-02-16 13:30 | disposition home or self-care (01) ==
LOC: COL.ER 09:59 → MEDICAL 10:59
PROVIDERS: Emergency Medicine; Nurse Practitioner; ADMIT Internal Medicine Interventional Cardiology
DX: I25.110 Atherosclerotic heart disease of native coronary artery with unstable angina pectoris (principal); Z95.0 Presence of cardiac pacemaker; Z90.710 Acquired absence of both cervix and uterus; Z96.653 Presence of artificial knee joint, bilateral; Z90.49 Acquired absence of other specified parts of digestive tract; Z96.643 Presence of artificial hip joint, bilateral; Z79.01 Long term (current) use of anticoagulants; Z88.1 Allergy status to other antibiotic agents; Z88.8 Allergy status to other drugs, medicaments and biological substances; Z88.6 Allergy status to analgesic agent
CPT/HCPCS: C1760; C1769; C1894; G0378; J0360; J1644; J2250; J3010; J7030; Q9967

== ENCOUNTER 2020-05-01 14:20 | Emergency (ER) | payer MEDICARE, MEDICAID ==
[2006-09-25 22:38] VITALS: BP 187/94
[~2020-05-01] VITALS: Ht 162.6 cm; Wt 95.9 kg
[2020-05-01 14:24] VITALS: TEMP 98.6
[2020-05-01 15:35] LABS: BASO % 0.3 % (0.0-2.0); EOS % 0.2 % (0-4.0); GRAN # 6.5 (1.4-6.5); GRAN % 70.7 % (42.2-75.2); HEMOGLOBIN 11.5 g/dl (12.5-16.0); LYMPH % 21.9 % (20.0-51.0); MEAN CELL VOLUME 92 fl (80.0-100.0); MEAN CORPUSCULAR HEMOGLOBIN 30 pg (27.0-31.0); MEAN CORPUSCULAR HGB CONC 32 g/dl (33.0-37.0); MEAN PLATELET VOLUME 9.3 fl (7.4-10.4); MONO # 0.6 (0.1-0.6); MONO % 6.6 % (1.7-9.3); PLATELET COUNT 226 K/mm3 (130-400); RED BLOOD COUNT 3.85 M/mm3 (4.10-5.30); REDCELL DISTRIBUTION WIDTH-CV 14.6 % (11.5-14.5)
[2020-05-01 15:43] LABS: HEMATOCRIT 35.5 % (37.0-47.0)
[2020-05-01 15:48] LABS: ALANINE AMINOTRANSFERASE 15 U/L (4-34); ALBUMIN 3.7 gm/dL (3.5-5.0); ALKALINE PHOSPHATASE 70 U/L (50-136); ANION GAP 6 mmol/L (7-16); AST,SGOT 16 U/L (15-37); BILIRUBIN,TOTAL 0.5 mg/dL (0.0-1.0); BLOOD UREA NITROGEN 21 mg/dL (7-17); CALCIUM 9.1 mg/dL (8.4-10.2); CARBON DIOXIDE 27 mmol/L (22-30); CHLORIDE 105 mmol/L (98-107); CREATININE, serum 1.17 (0.52-1.25); GLUCOSE 128 mg/dL (74-106); POTASSIUM 4.2 mmol/L (3.4-5.0); SODIUM 138 mmol/L (137-145); TOTAL PROTEIN 6.7 gm/dL (6.4-8.2)
[2020-05-01 16:03] LABS: TROPONIN-I < 0.012 ng/mL (0.000-0.035)
[2020-05-01 18:46] VITALS: BP 182/108; PULSE 80
== END 2020-05-01 19:00 | disposition home or self-care (01) ==
LOC: COL.ER 14:20
PROVIDERS: Emergency Medicine
DX: R07.9 Chest pain, unspecified (principal); I10 Essential (primary) hypertension; R05 Cough; Z95.0 Presence of cardiac pacemaker; Z90.710 Acquired absence of both cervix and uterus; Z88.1 Allergy status to other antibiotic agents; Z88.6 Allergy status to analgesic agent; Z79.02 Long term (current) use of antithrombotics/antiplatelets

== ENCOUNTER 2020-07-19 11:09 | Emergency (ER) | payer MEDICARE, MEDICAID ==
[2006-09-25 22:38] VITALS: BP 187/94
[~2020-07-19] VITALS: Ht 162.6 cm; Wt 94.1 kg
[2020-07-19 11:14] VITALS: TEMP 98.1
[2020-07-19 12:01] LABS: ALANINE AMINOTRANSFERASE 16 U/L (4-34); ALBUMIN 4.1 gm/dL (3.5-5.0); ALKALINE PHOSPHATASE 69 U/L (50-136); ANION GAP 9 mmol/L (7-16); AST,SGOT 20 U/L (15-37); BILIRUBIN,TOTAL 0.7 mg/dL (0.0-1.0); BLOOD UREA NITROGEN 23 mg/dL (7-17); CARBON DIOXIDE 22 mmol/L (22-30); CHLORIDE 105 mmol/L (98-107); CREATININE, serum 1.19 (0.52-1.25); GLUCOSE 111 mg/dL (74-106); POTASSIUM 4.4 mmol/L (3.4-5.0); SODIUM 136 mmol/L (137-145); TOTAL PROTEIN 7.2 gm/dL (6.4-8.2)
[2020-07-19 12:15] LABS: TROPONIN-I < 0.012 ng/mL (0.000-0.035)
[2020-07-19 12:37] LABS: BASO # 0.1 (0.0-0.2); BASO % 0.6 % (0.0-2.0); EOS # 0.3 (0.0-0.7); EOS % 3.3 % (0-4.0); GRAN # 4.5 (1.4-6.5); GRAN % 55.1 % (42.2-75.2); HEMATOCRIT 41.3 % (37.0-47.0); HEMOGLOBIN 13.3 g/dl (12.5-16.0); LYMPH # 2.6 (1.2-3.4); LYMPH % 32.5 % (20.0-51.0); MEAN CELL VOLUME 92 fl (80.0-100.0); MEAN CORPUSCULAR HEMOGLOBIN 30 pg (27.0-31.0); MEAN CORPUSCULAR HGB CONC 32 g/dl (33.0-37.0); MEAN PLATELET VOLUME 9.7 fl (7.4-10.4); MONO # 0.6 (0.1-0.6); MONO % 7.5 % (1.7-9.3); PLATELET COUNT 243 K/mm3 (130-400); RED BLOOD COUNT 4.51 M/mm3 (4.10-5.30); REDCELL DISTRIBUTION WIDTH-CV 14.6 % (11.5-14.5)
[2020-07-19 16:01] VITALS: BP 135/85; PULSE 79
[2021-01-22] MEDS ORDERED: MACROBID 1100 MG/CAP PO (16:25)
== END 2020-07-19 15:54 | disposition home or self-care (01) ==
LOC: COL.ER 11:09
PROVIDERS: Emergency Medicine
DX: R07.89 Other chest pain (principal); R05 Cough; E78.5 Hyperlipidemia, unspecified; I10 Essential (primary) hypertension; I25.10 Atherosclerotic heart disease of native coronary artery without angina pectoris; F41.9 Anxiety disorder, unspecified; Z95.0 Presence of cardiac pacemaker; Z88.1 Allergy status to other antibiotic agents; Z88.6 Allergy status to analgesic agent; Z88.8 Allergy status to other drugs, medicaments and biological substances; Z79.02 Long term (current) use of antithrombotics/antiplatelets

== ENCOUNTER → 2020-08-20 | Outpatient (CLI) | payer MEDICARE, MEDICAID ==
[~2020-08-20] MED LIST changes: +BYSTOLIC20 MG PO; +NITROSTAT0.6 MG SL
== END ==
LOC: COL.RAD 09:00
DX: T18.128A Food in esophagus causing other injury, initial encounter (principal); K21.9 Gastro-esophageal reflux disease without esophagitis; K44.9 Diaphragmatic hernia without obstruction or gangrene; I51.9 Heart disease, unspecified; Z95.0 Presence of cardiac pacemaker; K22.8 Other specified diseases of esophagus; K22.2 Esophageal obstruction

== ENCOUNTER 2020-09-19 09:58 | Day surgery (SDC) | payer MEDICARE, MEDICAID ==
[2006-09-25 22:38] VITALS: BP 187/94
[~2020-09-19] VITALS: Ht 162.6 cm; Wt 95.1 kg
[~2020-09-19 09:58] MED LIST changes: -BYSTOLIC20 MG PO; -NITROSTAT0.6 MG SL
--- NOTE | 2020-09-19 10:46 | NUR ---
Initial visit; Patient thanked Cast Associate for offering encouragement and prayer prior to her 'procedure.'
[2020-09-19] MEDS ORDERED: BYSTOLIC20 MG PO (11:19)
[2020-09-19] MEDS ORDERED: PULMICORT R1 MG/2 ML IH (11:21)
[2020-09-19] MEDS ORDERED: CORTEF5 MG PO (11:21)
[2020-09-19] MEDS ORDERED: PROTONIX 40MG T40 MG PO (11:22)
[2020-09-19] MEDS ORDERED: NITROSTAT0.6 MG SL (11:23)
[2020-09-19] MEDS ORDERED: RANEXA 500MG T500 MG PO (11:25)
[2020-09-19] MEDS ORDERED: PLAVIX 75MG TAB75 MG PO (11:27)
[2020-09-19] MEDS ORDERED: ATIVAN 0.50.5 MG/TAB PO (11:28)
[2020-09-19 11:30] VITALS: BP 183/103; PULSE 81; TEMP 97.4
--- NOTE | 2020-09-19 11:40 | NUR ---
TO RM AT 1105- CALL LIGHT IN REACH WILL CALL SON TO TURN OUT WORKER PATIENT
[2020-09-19 12:30] VITALS: BP 154/93; PULSE 81; TEMP 97.5
--- NOTE | 2020-09-19 12:30 | NUR ---
PT TO BAY 8 VIA CART FROM ENDO ROOM, WALKED TO CHAIR WITH ASSIST, IV TO RIGHT FOOT, NO REDNESS OR SWELLING NOTED, CALL LIGHT IN REACH, SON NOW IN ROOM, TAKES WATER
[2020-09-19 12:45] VITALS: BP 154/93; PULSE 80
[2020-09-19 13:00] VITALS: BP 162/100; PULSE 80
--- NOTE | 2020-09-19 13:00 | NUR ---
DR FORTE SEE PT AND SON, IV D'CD TO FOOT INTACT. WALKED TO B/R, GAIT STEADY, HAD LARGE BM, PT DRESSED, BACK TO ROOM
[2020-09-19 13:15] VITALS: BP 162/87; PULSE 80
--- NOTE | 2020-09-19 13:15 | NUR ---
REVIEWED DISCHARGE INST. WITH PT AND SON ON MODERAE SEDATION, PRECAUTIONS AND FOLLOWUP WITH VERBAL UNDERSTANDING REVIEWED DIET RESTRICTIONS WITH PT ALSO. PT DISCHARGED VIA W/C TO CAR WITH SON AND STAFF
[2021-01-22] MEDS ORDERED: MACROBID 1100 MG/CAP PO (16:25)
== END 2020-09-19 13:15 | disposition home or self-care (01) ==
LOC: SDCO 09:58
DX: K21.9 Gastro-esophageal reflux disease without esophagitis (principal); K44.9 Diaphragmatic hernia without obstruction or gangrene; I25.10 Atherosclerotic heart disease of native coronary artery without angina pectoris; I10 Essential (primary) hypertension; E78.5 Hyperlipidemia, unspecified; G89.29 Other chronic pain; M19.90 Unspecified osteoarthritis, unspecified site; I49.5 Sick sinus syndrome; E66.9 Obesity, unspecified; F32.9 Major depressive disorder, single episode, unspecified; F41.9 Anxiety disorder, unspecified; Z88.1 Allergy status to other antibiotic agents; Z88.8 Allergy status to other drugs, medicaments and biological substances; Z88.6 Allergy status to analgesic agent; Z79.02 Long term (current) use of antithrombotics/antiplatelets; Z90.710 Acquired absence of both cervix and uterus; Z20.822 Contact with and (suspected) exposure to COVID-19; Z79.899 Other long term (current) drug therapy; Z95.5 Presence of coronary angioplasty implant and graft; Z95.0 Presence of cardiac pacemaker; Z79.891 Long term (current) use of opiate analgesic; Z90.89 Acquired absence of other organs; Z90.49 Acquired absence of other specified parts of digestive tract
CPT/HCPCS: J2704; J7030

== ENCOUNTER 2020-10-16 12:17 | Emergency (ER) | payer MEDICARE, MEDICAID ==
[2006-09-25 22:38] VITALS: BP 187/94
[~2020-10-16 12:17] MED LIST changes: +BYSTOLIC20 MG PO; +NITROSTAT0.6 MG SL
[2020-10-16 12:26] VITALS: TEMP 98.1
[2020-10-16] MEDS ORDERED: ABILIFY5 MG PO (12:47)
[2020-10-16] MEDS ORDERED: BYSTOLIC10 MG PO (12:50)
[2020-10-16 13:31] LABS: BASO % 0.5 % (0.0-2.0); EOS # 0.3 (0.0-0.7); GRAN # 4.6 (1.4-6.5); GRAN % 57.4 % (42.2-75.2); HEMATOCRIT 36.5 % (37.0-47.0); HEMOGLOBIN 12.1 g/dl (12.5-16.0); LYMPH # 2.4 (1.2-3.4); LYMPH % 30.3 % (20.0-51.0); MEAN CELL VOLUME 90 fl (80.0-100.0); MEAN CORPUSCULAR HEMOGLOBIN 30 pg (27.0-31.0); MEAN CORPUSCULAR HGB CONC 33 g/dl (33.0-37.0); MEAN PLATELET VOLUME 9.6 fl (7.4-10.4); MONO # 0.6 (0.1-0.6); MONO % 7.5 % (1.7-9.3); PLATELET COUNT 206 K/mm3 (130-400); RED BLOOD COUNT 4.05 M/mm3 (4.10-5.30); REDCELL DISTRIBUTION WIDTH-CV 14.2 % (11.5-14.5)
[2020-10-16 13:38] LABS: INR 1.1 (0.8-3.0); PROTHROMBIN TIME 11.8 SECONDS (9.7-12.8)
[2020-10-16 13:40] LABS: PARTIAL THROMBOPLASTIN TIME 28.7 SECONDS (26.0-37.0)
[2020-10-16 13:42] LABS: ALANINE AMINOTRANSFERASE 15 U/L (4-34); ALBUMIN 3.7 gm/dL (3.5-5.0); ALKALINE PHOSPHATASE 62 U/L (50-136); ANION GAP 6 mmol/L (7-16); AST,SGOT 20 U/L (15-37); BILIRUBIN,TOTAL 0.6 mg/dL (0.0-1.0); BLOOD UREA NITROGEN 19 mg/dL (7-17); CALCIUM 9.1 mg/dL (8.4-10.2); CARBON DIOXIDE 23 mmol/L (22-30); CHLORIDE 106 mmol/L (98-107); GLUCOSE 93 mg/dL (74-106); LIPASE 99 U/L (23-300); POTASSIUM 4.4 mmol/L (3.4-5.0); SODIUM 136 mmol/L (137-145); TOTAL PROTEIN 6.7 gm/dL (6.4-8.2)
[2020-10-16 13:59] LABS: TROPONIN-I < 0.012 ng/mL (0.000-0.035)
[2020-10-16 16:30] VITALS: BP 156/88; PULSE 80
[2021-01-22] MEDS ORDERED: MACROBID 1100 MG/CAP PO (16:25)
== END 2020-10-16 16:45 | disposition home or self-care (01) ==
LOC: COL.ER 12:17
PROVIDERS: Emergency Medicine
DX: R07.89 Other chest pain (principal); I25.10 Atherosclerotic heart disease of native coronary artery without angina pectoris; Z95.9 Presence of cardiac and vascular implant and graft, unspecified; Z95.0 Presence of cardiac pacemaker; Z88.1 Allergy status to other antibiotic agents; Z88.8 Allergy status to other drugs, medicaments and biological substances; Z88.6 Allergy status to analgesic agent; Z79.02 Long term (current) use of antithrombotics/antiplatelets

== ENCOUNTER 2020-12-01 20:12 | Emergency (ER) | payer MEDICARE, MEDICAID ==
[~2020-12-01] VITALS: Ht 165.1 cm; Wt 95.0 kg
[2020-12-01 20:18] VITALS: TEMP 98.4
[2020-12-01 21:37] LABS: TROPONIN-I < 0.012 ng/mL (0.000-0.035)
[2020-12-01 21:48] LABS: BASO % 0.4 % (0.0-2.0); EOS # 0.3 (0.0-0.7); EOS % 3.7 % (0-4.0); GRAN # 4.7 (1.4-6.5); GRAN % 61.6 % (42.2-75.2); HEMOGLOBIN 11.1 g/dl (12.5-16.0); LYMPH # 1.9 (1.2-3.4); LYMPH % 25.3 % (20.0-51.0); MEAN CELL VOLUME 92 fl (80.0-100.0); MEAN CORPUSCULAR HEMOGLOBIN 30 pg (27.0-31.0); MEAN CORPUSCULAR HGB CONC 32 g/dl (33.0-37.0); MEAN PLATELET VOLUME 9.2 fl (7.4-10.4); MONO # 0.7 (0.1-0.6); MONO % 8.7 % (1.7-9.3); PLATELET COUNT 197 K/mm3 (130-400); RED BLOOD COUNT 3.76 M/mm3 (4.10-5.30); REDCELL DISTRIBUTION WIDTH-CV 14.6 % (11.5-14.5)
[2020-12-01 21:54] LABS: ALBUMIN 3.4 gm/dL (3.5-5.0); BILIRUBIN,TOTAL 0.5 mg/dL (0.0-1.0); CREATININE, serum 1.01 (0.52-1.25); POTASSIUM 4.1 mmol/L (3.4-5.0); TOTAL PROTEIN 6.2 gm/dL (6.4-8.2)
[2020-12-01 21:55] LABS: HEMATOCRIT 34.4 % (37.0-47.0)
[2020-12-02 01:14] VITALS: BP 152/70; PULSE 65
[2021-01-22] MEDS ORDERED: MACROBID 1100 MG/CAP PO (16:25)
== END 2020-12-02 01:14 | disposition home or self-care (01) ==
LOC: COL.ER 20:12
PROVIDERS: Personal Emergency Response Attendant; Physician Assistant
DX: R07.89 Other chest pain (principal); I11.0 Hypertensive heart disease with heart failure; I50.9 Heart failure, unspecified; I25.10 Atherosclerotic heart disease of native coronary artery without angina pectoris; K21.9 Gastro-esophageal reflux disease without esophagitis; F41.9 Anxiety disorder, unspecified; J45.909 Unspecified asthma, uncomplicated; Z95.9 Presence of cardiac and vascular implant and graft, unspecified; Z95.0 Presence of cardiac pacemaker; Z88.8 Allergy status to other drugs, medicaments and biological substances; Z88.6 Allergy status to analgesic agent; Z79.02 Long term (current) use of antithrombotics/antiplatelets; Z79.899 Other long term (current) drug therapy
CPT/HCPCS: J7030

== ENCOUNTER 2021-04-24 21:34 | Observation (INO) | payer MEDICARE, MEDICAID ==
[~2021-04-24] VITALS: Ht 165.1 cm; Wt 95.2 kg
[2021-04-24 22:08] LABS: BASO % 0.5 % (0.0-2.0); EOS # 0.4 K/mm3 (0.0-0.7); EOS % 4.6 % (0-4.0); GRAN # 4.8 K/mm3 (1.4-6.5); GRAN % 57.3 % (42.2-75.2); HEMOGLOBIN 11.8 g/dl (12.5-16.0); LYMPH # 2.5 K/mm3 (1.2-3.4); LYMPH % 29.8 % (20.0-51.0); MEAN CELL VOLUME 89 fl (80.0-100.0); MEAN CORPUSCULAR HEMOGLOBIN 29 pg (27.0-31.0); MEAN CORPUSCULAR HGB CONC 33 g/dl (33.0-37.0); MEAN PLATELET VOLUME 9.4 fl (7.4-10.4); MONO # 0.6 K/mm3 (0.1-0.6); MONO % 7.4 % (1.7-9.3); PLATELET COUNT 235 K/mm3 (130-400); RED BLOOD COUNT 4.03 M/mm3 (4.10-5.30); REDCELL DISTRIBUTION WIDTH-CV 13.9 % (11.5-14.5)
[2021-04-24 22:15] LABS: HEMATOCRIT 35.9 % (37.0-47.0)
[2021-04-24 22:23] LABS: ALBUMIN 3.4 gm/dL (3.4-4.8); BILIRUBIN,TOTAL 0.4 mg/dL (0.2-1.2); CALCIUM 8.5 mg/dL (8.4-10.2); CREATININE, serum 1.19 mg/dL (0.57-1.11); POTASSIUM 4.7 mmol/L (3.5-4.5); TOTAL PROTEIN 6.6 gm/dL (6.2-8.1)
[2021-04-24 22:29] LABS: TROPONIN-I 0.019 ng/mL (0.00-0.033)
[2021-04-25] VITALS (13 sets, daily range): BP systolic 117–154; BP diastolic 56–85; PULSE 66–84; TEMP 97.3–98.7
--- NOTE | 2021-04-25 01:04 | NUR ---
PT ARRIVED TO FLOOR PRIOR TO THIS RN ARRIVAL. THIS RN CAME IN TO DO PT ASSESSMENT, DO ADMISSION FORMS AND GET PT SITUATED. PT IS PLEASANT AND CONVERSANT. PT IS ALERT AND ORIENTATED. PT RATES CHEST PAIN AT 6/10. PT STATED SHE USES CBD OIL TO HELP WITH ANXIETY DUE TO LESS SIDE EFFECTS OF ANXIETY MEDICATION, AND OVERALL EFFECTIVENESS. PT ORIENTATED TO ROOM, CALL LIGHT IN REACH, WHEELS LOCKED, BED IN LOWEST POSITION. PT REQUESTS PAIN MEDICATION.
[2021-04-25] MEDS ORDERED: SINGULAIR 110 MG/TAB PO (01:08)
[2021-04-25 03:54] LABS: BASO % 0.4 % (0.0-2.0); EOS # 0.5 K/mm3 (0.0-0.7); EOS % 5.4 % (0-4.0); GRAN # 5.8 K/mm3 (1.4-6.5); GRAN % 59.8 % (42.2-75.2); HEMATOCRIT 34.7 % (37.0-47.0); HEMOGLOBIN 11.3 g/dl (12.5-16.0); LYMPH # 2.6 K/mm3 (1.2-3.4); LYMPH % 26.8 % (20.0-51.0); MEAN CELL VOLUME 89 fl (80.0-100.0); MEAN CORPUSCULAR HEMOGLOBIN 29 pg (27.0-31.0); MEAN CORPUSCULAR HGB CONC 33 g/dl (33.0-37.0); MONO # 0.7 K/mm3 (0.1-0.6); MONO % 7.3 % (1.7-9.3); PLATELET COUNT 215 K/mm3 (130-400); RED BLOOD COUNT 3.92 M/mm3 (4.10-5.30); REDCELL DISTRIBUTION WIDTH-CV 13.9 % (11.5-14.5)
[2021-04-25 04:12] LABS: ANION GAP 10 mmol/L (7-16); BLOOD UREA NITROGEN 18 mg/dL (10-20); CALCIUM 8.8 mg/dL (8.4-10.2); CARBON DIOXIDE 21 mmol/L (23-31); CHLORIDE 107 mmol/L (98-107); CREATININE, serum 1.14 mg/dL (0.57-1.11); GLUCOSE 112 mg/dL (70-99); POTASSIUM 3.8 mmol/L (3.5-4.5); SODIUM 138 mmol/L (136-145)
[2021-04-25 04:19] LABS: TROPONIN-I 6 HR POST INITIAL < 0.010 ng/mL (0.00-0.033)
--- NOTE | 2021-04-25 06:07 | NUR ---
THIS RN ATTEMPTED TO CONTACT DR. HAQ AT 0607 THIS MORNING, WENT STRAIGHT TO VOICEMAIL. NO VOICEMAIL SET UP TO LEAVE MESSAGE. WILL PASS ALONG TO DAY SHIFT.
--- NOTE | 2021-04-25 06:10 | NUR ---
PT HAD UNEVENTFUL NIGHT. PT IS PLEASANT AND COOPERATIVE. CALL LIGHT IN REACH, WHEELS LOCKED, BED IN LOWEST POSITION. NO OTHER NEEDS AT THIS TIME.
--- NOTE | 2021-04-25 06:51 | NUR ---
Patient resting in bed with eyes closed. Respirations are even and unlabored. No s/s of pain or discomfort.
--- NOTE | 2021-04-25 07:36 | NUR ---
Unable to reach Dr. Dsouza for consult at this time. Will attempt again.
--- NOTE | 2021-04-25 08:09 | NUR ---
Scheduled medications given. Shift assessment preformed. Patient states that she has chest pain rated a 3/10. Describes it as a "[place]" Faith offered, initially patient wanted the medication, but then refused the medication because she did not want to become drowsy. Patient denies any further pain, discomfort, SOA, or any further needs at this time. Blood pressure slightly elevated, all other VS stable. BP medications given. Call light in reach. Patient A&O. Fall precautions in place.
--- NOTE | 2021-04-25 09:22 | NUR ---
UNABLE TO CONTACT [facility] REGARDING CONSULT.
--- NOTE | 2021-04-25 09:32 | NUR ---
Dr. Dsouza aware of consult.
--- NOTE | 2021-04-25 13:30 | NUR ---
Plan is to return home with home health supports [facility]. SW met with patient about care support. 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 Patient reports that she has an adult son Ed who is the OA . Patient reports that [facility] comes out on Mondays to help her bath. Patient reports that her PCp is Dr. Carmona and Dr. Abdul. Patient reports she has a cane and walker. Patient indicated that she has Pacemaker. Patient prefers to [place]. Patient reports that her hsband has home health with [facility] and wants to start home with for her. SW faxed referral to [facility]. KELI, educated on services with Case Management.
--- NOTE | 2021-04-25 20:30 | NUR ---
Patient's BP 117/56 at this time. Metoprolol is ordered for tonight but is on pt's allergy list as undefined. ANIBAL Ruiz notified of these issues and advises to give the metoprolol if patient is comfortable. Patient states she does not remember having a reaction to metoprolol and gives this RN permission to administer metoprolol with close monitoring.
[2021-04-26 01:30] VITALS: BP 151/85; PULSE 76; TEMP 98.6
[2021-04-26 06:38] VITALS: BP 130/64; PULSE 56; TEMP 98.1
[2021-04-26 06:55] LABS: BASO % 0.4 % (0.0-2.0); EOS # 0.5 K/mm3 (0.0-0.7); EOS % 5.9 % (0-4.0); GRAN # 3.8 K/mm3 (1.4-6.5); GRAN % 49.8 % (42.2-75.2); LYMPH # 2.7 K/mm3 (1.2-3.4); LYMPH % 35.7 % (20.0-51.0); MEAN CELL VOLUME 88 fl (80.0-100.0); MEAN CORPUSCULAR HEMOGLOBIN 30 pg (27.0-31.0); MEAN CORPUSCULAR HGB CONC 34 g/dl (33.0-37.0); MEAN PLATELET VOLUME 9.7 fl (7.4-10.4); MONO # 0.6 K/mm3 (0.1-0.6); MONO % 7.9 % (1.7-9.3); PLATELET COUNT 206 K/mm3 (130-400); RED BLOOD COUNT 3.68 M/mm3 (4.10-5.30)
--- NOTE | 2021-04-26 07:04 | NUR ---
Patient asleep in room with eyes closed. Respirations even and unlabored. No s/s of pain or discomfort at this time. Call light in reach.
[2021-04-26 07:06] LABS: HEMATOCRIT 32.3 % (37.0-47.0)
[2021-04-26 07:19] LABS: CALCIUM 8.6 mg/dL (8.4-10.2); CREATININE, serum 1.04 mg/dL (0.57-1.11); POTASSIUM 4.1 mmol/L (3.5-4.5)
[2021-04-26 07:24] VITALS: BP 170/62; PULSE 83; TEMP 97.5
[2021-04-26 07:32] VITALS: BP 124/59; PULSE 81; TEMP 97.7
--- NOTE | 2021-04-26 08:21 | NUR ---
Scheduled meds given. Shift assessment performed. Patient denies any chest pain, SOA, discomfort, or any further needs at this time. Groin excoriated, barrier cream applied. +2 edema noted on BLE. Bruising noted no BUE. Patient currently sitting on edge of bed eating breakfast. Gait steady. VSS. Patient A&O. Call light in reach.
[2021-04-26] MEDS ORDERED: LIPITOR20 MG PO (10:02)
[2021-04-26] MEDS ORDERED: NITROSTAT0.4 MG/TAB SL (10:03)
[2021-04-26] MEDS ORDERED: LOPRESSOR 225 MG/TAB PO (10:03)
[2021-04-26] MEDS ORDERED: IMDUR 30MG30 MG/TAB PO (10:04)
[2021-04-26] MEDS ORDERED: ALBUTEROL0.83 MG/ML IH (10:10)
[2021-04-26] MEDS ORDERED: DOXYCYCLINE 10100 MG PO (10:10)
[2021-04-26 11:00] VITALS: BP 116/51; PULSE 81; TEMP 98.9
--- NOTE | 2021-04-26 12:18 | NUR ---
YASMINE faxed previously provided paperwork to [facility] at [phone]. YASMINE will continue to follow.
--- NOTE | 2021-04-26 12:58 | NUR ---
Patient deemed fit for discharge. IV DC'd, catheter intact, no signs of phlebitis. Discharge education/Instructions given. All questions answered. Patient denies any further pain, discomfort, SOA, or needs at this time. VSS. Patient A&O. Patient escorted from building via wheelchair by [facility] Staff. Son transporting home.
[2021-04-27] MEDS ORDERED: LEVAQUIN 5500 MG/TA1 PO (22:22)
== END 2021-04-26 13:00 | disposition home health service (06) ==
LOC: COL.ER 21:34 → MEDICAL 23:32
PROVIDERS: Emergency Medicine; Physician Assistant; Student in an Organized Health Care Education/Training Program; ADMIT Internal Medicine
DX: R07.9 Chest pain, unspecified (principal); I25.10 Atherosclerotic heart disease of native coronary artery without angina pectoris; I11.0 Hypertensive heart disease with heart failure; I50.30 Unspecified diastolic (congestive) heart failure; Z66 Do not resuscitate; E78.5 Hyperlipidemia, unspecified; J44.9 Chronic obstructive pulmonary disease, unspecified; F32.A Depression, unspecified; Z20.822 Contact with and (suspected) exposure to COVID-19; F41.9 Anxiety disorder, unspecified; Z95.0 Presence of cardiac pacemaker; Z79.02 Long term (current) use of antithrombotics/antiplatelets
CPT/HCPCS: G0378; J1644

== ENCOUNTER 2021-04-27 19:38 | Emergency (ER) | payer MEDICARE, MEDICAID ==
[~2021-04-27] VITALS: Ht 165.1 cm; Wt 93.6 kg
[~2021-04-27 19:38] MED LIST changes: +ALBUTEROL0.83 MG/ML IH; +IMDUR 30MG30 MG/TAB PO; +LIPITOR20 MG PO; +LOPRESSOR 225 MG/TAB PO; +SINGULAIR 110 MG/TAB PO
[2021-04-27 20:13] LABS: BASO # 0.1 K/mm3 (0.0-0.2); BASO % 0.5 % (0.0-2.0); EOS # 0.6 K/mm3 (0.0-0.7); EOS % 4.4 % (0-4.0); GRAN # 9.1 K/mm3 (1.4-6.5); GRAN % 71.2 % (42.2-75.2); HEMOGLOBIN 11.4 g/dl (12.5-16.0); LYMPH # 2.1 K/mm3 (1.2-3.4); LYMPH % 16.6 % (20.0-51.0); MEAN CELL VOLUME 88 fl (80.0-100.0); MEAN CORPUSCULAR HEMOGLOBIN 29 pg (27.0-31.0); MEAN CORPUSCULAR HGB CONC 33 g/dl (33.0-37.0); MEAN PLATELET VOLUME 9.6 fl (7.4-10.4); MONO # 0.9 K/mm3 (0.1-0.6); MONO % 6.9 % (1.7-9.3); PLATELET COUNT 245 K/mm3 (130-400); RED BLOOD COUNT 3.88 M/mm3 (4.10-5.30); REDCELL DISTRIBUTION WIDTH-CV 14.5 % (11.5-14.5)
[2021-04-27 20:14] LABS: HEMATOCRIT 34.2 % (37.0-47.0)
[2021-04-27 20:29] LABS: ALBUMIN 3.6 gm/dL (3.4-4.8); BILIRUBIN,TOTAL 0.8 mg/dL (0.2-1.2); CALCIUM 8.9 mg/dL (8.4-10.2); CREATININE, serum 1.29 mg/dL (0.57-1.11); TOTAL PROTEIN 7.4 gm/dL (6.2-8.1)
[2021-04-27 21:40] LABS: COLLECTION METHOD CLEAN CATCH
[2021-04-27 21:48] LABS: MUCOUS Present (NOT PRESENT); PH 5 (5-8); URINE APPEARANCE Cloudy (CLEAR/HAZY); URINE BACTERIA Rare (NONE SEEN); URINE BILIRUBIN Negative (NEGATIVE); URINE BLOOD Negative (NEGATIVE); URINE COLOR Yellow (YELLOW); URINE GLUCOSE Negative (NEGATIVE); URINE KETONE Negative (NEGATIVE); URINE LEUKOCYTE ESTERASE 2+ (NEGATIVE); URINE NITRATE Negative (NEGATIVE); URINE PROTEIN(semi-quant) Negative (NEGATIVE)
[2021-04-27] MEDS ORDERED: LEVAQUIN 5500 MG/TA1 PO (22:22)
[2021-04-27 22:46] VITALS: BP 146/78; PULSE 80; TEMP 98.7
== END 2021-04-27 22:46 | disposition home or self-care (01) ==
LOC: COL.ER 19:38
PROVIDERS: Family Medicine
DX: N39.0 Urinary tract infection, site not specified (principal); I25.10 Atherosclerotic heart disease of native coronary artery without angina pectoris; E78.5 Hyperlipidemia, unspecified; I10 Essential (primary) hypertension; J44.9 Chronic obstructive pulmonary disease, unspecified; F32.A Depression, unspecified; F41.9 Anxiety disorder, unspecified; Z20.822 Contact with and (suspected) exposure to COVID-19; Z88.1 Allergy status to other antibiotic agents; Z79.899 Other long term (current) drug therapy; Z79.02 Long term (current) use of antithrombotics/antiplatelets
CPT/HCPCS: J7030

== ENCOUNTER 2021-05-06 06:02 | Emergency (ER) | payer MEDICARE, MEDICAID ==
[~2021-05-06] VITALS: Ht 165.1 cm; Wt 93.6 kg
[2021-05-06 06:16] VITALS: TEMP 99
[2021-05-06 06:48] LABS: BASO % 0.4 % (0.0-2.0); EOS # 0.4 K/mm3 (0.0-0.7); EOS % 5.6 % (0-4.0); GRAN # 3.9 K/mm3 (1.4-6.5); GRAN % 54.1 % (42.2-75.2); HEMATOCRIT 37.1 % (37.0-47.0); HEMOGLOBIN 12.1 g/dl (12.5-16.0); LYMPH # 2.3 K/mm3 (1.2-3.4); LYMPH % 31.5 % (20.0-51.0); MEAN CELL VOLUME 90 fl (80.0-100.0); MEAN CORPUSCULAR HEMOGLOBIN 29 pg (27.0-31.0); MEAN CORPUSCULAR HGB CONC 33 g/dl (33.0-37.0); MEAN PLATELET VOLUME 9.3 fl (7.4-10.4); MONO # 0.6 K/mm3 (0.1-0.6); MONO % 8.1 % (1.7-9.3); PLATELET COUNT 232 K/mm3 (130-400); RED BLOOD COUNT 4.12 M/mm3 (4.10-5.30); REDCELL DISTRIBUTION WIDTH-CV 14.2 % (11.5-14.5)
[2021-05-06 07:09] LABS: ALANINE AMINOTRANSFERASE 10 U/L (0-55); ALBUMIN 3.4 gm/dL (3.4-4.8); ALKALINE PHOSPHATASE 61 U/L (40-150); ANION GAP 8 mmol/L (7-16); AST,SGOT 9 U/L (5-34); BILIRUBIN,TOTAL 0.7 mg/dL (0.2-1.2); BLOOD UREA NITROGEN 22 mg/dL (10-20); CALCIUM 8.8 mg/dL (8.4-10.2); CARBON DIOXIDE 24 mmol/L (23-31); CHLORIDE 106 mmol/L (98-107); CREATINE KINASE 39 U/L (29-168); CREATININE, serum 1.13 mg/dL (0.57-1.11); GLUCOSE 101 mg/dL (70-99); LIPASE 29 U/L (8-78); POTASSIUM 4.2 mmol/L (3.5-4.5); SODIUM 138 mmol/L (136-145); TOTAL PROTEIN 6.6 gm/dL (6.2-8.1)
[2021-05-06 07:15] LABS: TROPONIN-I < 0.010 ng/mL (0.00-0.033)
[2021-05-06] MEDS ORDERED: NORCO 325 MG-51 TAB PO (10:02)
[2021-05-06 10:18] VITALS: BP 160/99; PULSE 80
== END 2021-05-06 10:18 | disposition home or self-care (01) ==
LOC: COL.ER 06:02
PROVIDERS: Emergency Medicine
DX: R07.89 Other chest pain (principal); E78.5 Hyperlipidemia, unspecified; J44.9 Chronic obstructive pulmonary disease, unspecified; I50.9 Heart failure, unspecified; F32.A Depression, unspecified; F41.9 Anxiety disorder, unspecified; I25.10 Atherosclerotic heart disease of native coronary artery without angina pectoris; Z95.5 Presence of coronary angioplasty implant and graft; Z95.0 Presence of cardiac pacemaker; Z79.899 Other long term (current) drug therapy

== ENCOUNTER 2021-05-11 12:43 | Emergency (ER) | payer MEDICARE, MEDICAID ==
[~2021-05-11] VITALS: Ht 165.1 cm; Wt 93.6 kg
[2021-05-11 13:24] VITALS: TEMP 98.1
[2021-05-11 15:16] LABS: BASO # 0.1 K/mm3 (0.0-0.2); BASO % 0.5 % (0.0-2.0); EOS # 0.3 K/mm3 (0.0-0.7); EOS % 3.2 % (0-4.0); GRAN # 5.8 K/mm3 (1.4-6.5); GRAN % 63.3 % (42.2-75.2); HEMOGLOBIN 11.8 g/dl (12.5-16.0); LYMPH # 2.4 K/mm3 (1.2-3.4); LYMPH % 26.1 % (20.0-51.0); MEAN CELL VOLUME 91 fl (80.0-100.0); MEAN CORPUSCULAR HEMOGLOBIN 30 pg (27.0-31.0); MEAN CORPUSCULAR HGB CONC 33 g/dl (33.0-37.0); MEAN PLATELET VOLUME 9.8 fl (7.4-10.4); MONO # 0.6 K/mm3 (0.1-0.6); MONO % 6.5 % (1.7-9.3); PLATELET COUNT 263 K/mm3 (130-400); RED BLOOD COUNT 3.99 M/mm3 (4.10-5.30); REDCELL DISTRIBUTION WIDTH-CV 14.3 % (11.5-14.5)
[2021-05-11 15:18] LABS: HEMATOCRIT 36.1 % (37.0-47.0); INR 1.1 (0.8-3.0); PROTHROMBIN TIME 12.5 SECONDS (9.7-12.8)
[2021-05-11 15:30] LABS: ALANINE AMINOTRANSFERASE 9 U/L (0-55); ALBUMIN 3.7 gm/dL (3.4-4.8); ALKALINE PHOSPHATASE 62 U/L (40-150); ANION GAP 9 mmol/L (7-16); AST,SGOT 11 U/L (5-34); BILIRUBIN,TOTAL 0.8 mg/dL (0.2-1.2); BLOOD UREA NITROGEN 24 mg/dL (10-20); CALCIUM 9.1 mg/dL (8.4-10.2); CARBON DIOXIDE 23 mmol/L (23-31); CHLORIDE 106 mmol/L (98-107); CREATINE KINASE 40 U/L (29-168); GLUCOSE 136 mg/dL (70-99); POTASSIUM 4.3 mmol/L (3.5-4.5); SODIUM 138 mmol/L (136-145); TOTAL PROTEIN 6.9 gm/dL (6.2-8.1)
[2021-05-11 15:58] LABS: TROPONIN-I < 0.010 ng/mL (0.00-0.033)
[2021-05-11 18:10] VITALS: BP 168/91; PULSE 80
== END 2021-05-11 18:11 | disposition home or self-care (01) ==
LOC: COL.ER 12:43
PROVIDERS: Emergency Medicine
DX: R07.9 Chest pain, unspecified (principal); I11.0 Hypertensive heart disease with heart failure; I50.9 Heart failure, unspecified; J44.9 Chronic obstructive pulmonary disease, unspecified; E78.5 Hyperlipidemia, unspecified; F41.9 Anxiety disorder, unspecified; F32.A Depression, unspecified; Z95.5 Presence of coronary angioplasty implant and graft; Z95.0 Presence of cardiac pacemaker; Z79.899 Other long term (current) drug therapy
CPT/HCPCS: J2270; J7030

== ENCOUNTER 2021-05-14 11:32 | Day surgery (SDC) | payer MEDICARE, MEDICAID ==
[2006-09-25 22:38] VITALS: BP 187/94
[~2021-05-14] VITALS: Ht 165.1 cm; Wt 92.0 kg
[2021-05-14] VITALS (11 sets, daily range): BP systolic 94–190; BP diastolic 67–107; PULSE 75–83; TEMP 98.7
--- NOTE | 2021-05-14 12:44 | NUR ---
Initial visit; Patient requested prayer prior to surgical procedure. Swabber offered encouragement and prayer along with listening to patient who wanted to share the recent loss of her grandson. Swabber offered comfort and empathy.
[2021-05-14] MEDS ORDERED: NITROSTAT0.4 MG/TAB SL (12:51)
[2021-05-14] MEDS ORDERED: LOPRESSOR 225 MG/TAB PO (12:52)
[2021-05-14] MEDS ORDERED: IMDUR 30MG30 MG/TAB PO (12:53)
[2021-05-14] MEDS ORDERED: LIPITOR20 MG PO (12:54)
[2021-05-14] MEDS ORDERED: DOXYCYCLINE 10100 MG PO (13:09)
[2021-05-14 13:13] LABS: HEMOGLOBIN 12.1 g/dl (12.5-16.0); MEAN CELL VOLUME 88 fl (80.0-100.0); MEAN CORPUSCULAR HEMOGLOBIN 30 pg (27-31); MEAN CORPUSCULAR HGB CONC 34 g/dl (33.0-37.0); MEAN PLATELET VOLUME 9.5 fl (7.4-10.4); PLATELET COUNT 220 K/mm3 (130-400); RED BLOOD COUNT 4.05 M/mm3 (4.10-5.30); REDCELL DISTRIBUTION WIDTH-CV 13.9 % (11.5-14.5)
[2021-05-14 13:14] LABS: HEMATOCRIT 35.8 % (37.0-47.0)
[2021-05-14 13:23] LABS: INR 1.1 (0.8-3.0)
[2021-05-14 13:25] LABS: PARTIAL THROMBOPLASTIN TIME 28.2 SECONDS (26.0-37.0)
[2021-05-14 13:28] LABS: CALCIUM 9.4 mg/dL (8.4-10.2); CREATININE, serum 1.17 mg/dL (0.57-1.11); POTASSIUM 4.3 mmol/L (3.5-4.5)
--- NOTE | 2021-05-14 14:11 | NUR ---
SEE MERGE DOCUMENTATION FOR MEDICATION ADMINISTRATION AND INTRA/POST PROCEDURE SEDATION ASSESSMENTS.
--- NOTE | 2021-05-14 14:25 | NUR ---
Report from Kellie YOO. Transferred by bed from [facility]. Alert and oriented, denies pain at this time. Right groin access dressing CD&I, good pedal pulses and soft to palpation. VSS. Son and bedside.
--- NOTE | 2021-05-14 14:58 | NUR ---
5/325 mg [place] given po for pain d/t restless leg syndrome.
--- NOTE | 2021-05-14 17:54 | NUR ---
Ambulated in room to use toilet. Right groin site remains soft and drsg CD&I. INT discontinued intact. Discharge instructions given. Transferred to private car by cherrie
== END 2021-05-14 17:59 | disposition home or self-care (01) ==
LOC: COL.CAR 11:32
PROVIDERS: Internal Medicine Interventional Cardiology
DX: I25.10 Atherosclerotic heart disease of native coronary artery without angina pectoris (principal); I47.1 Supraventricular tachycardia; I10 Essential (primary) hypertension; R07.89 Other chest pain; R53.83 Other fatigue; R94.39 Abnormal result of other cardiovascular function study; K21.9 Gastro-esophageal reflux disease without esophagitis; M19.90 Unspecified osteoarthritis, unspecified site; J44.9 Chronic obstructive pulmonary disease, unspecified; D64.9 Anemia, unspecified; Z79.02 Long term (current) use of antithrombotics/antiplatelets; Z79.899 Other long term (current) drug therapy; Z79.891 Long term (current) use of opiate analgesic; Z90.710 Acquired absence of both cervix and uterus
CPT/HCPCS: C1760; C1894; J1644; J2250; J3010

== ENCOUNTER 2021-07-20 16:06 | Emergency (ER) | payer MEDICARE, MEDICAID ==
[~2021-07-20] VITALS: Ht 165.1 cm; Wt 90.9 kg
[2021-07-20 16:53] VITALS: TEMP 98.6
[2021-07-20] MEDS ORDERED: TRIAMCINOLONE A15 GM TP (17:43)
[2021-07-20 18:40] VITALS: BP 142/78; PULSE 75
== END 2021-07-20 18:40 | disposition home or self-care (01) ==
LOC: COL.ER 16:06
DX: R21 Rash and other nonspecific skin eruption (principal); I10 Essential (primary) hypertension; Z79.899 Other long term (current) drug therapy

== ENCOUNTER 2021-08-30 12:38 | Emergency (ER) | payer MEDICARE, MEDICAID ==
[~2021-08-30] VITALS: Ht 165.1 cm; Wt 93.2 kg
[~2021-08-30 12:38] MED LIST changes: +TRIAMCINOLONE A15 GM TP
[2021-08-30 12:49] VITALS: BP 132/80; PULSE 81; TEMP 97.9
[2021-08-30] MEDS ORDERED: NIZORAL CR 30GM TOP (13:14)
== END 2021-08-30 13:28 | disposition home or self-care (01) ==
LOC: COL.ER 12:38
DX: L30.4 Erythema intertrigo (principal)

== ENCOUNTER 2021-09-13 11:52 | Emergency (ER) | payer MEDICARE, MEDICAID ==
[~2021-09-13] VITALS: Ht 165.1 cm; Wt 91.8 kg
[~2021-09-13 11:52] MED LIST changes: +NIZORAL CR 30GM TOP
[2021-09-13 12:00] VITALS: TEMP 98.6
[2021-09-13 12:20] LABS: BASO % 0.5 % (0.0-2.0); EOS # 0.2 K/mm3 (0.0-0.7); EOS % 2.8 % (0.0-4.0); GRAN # 5.5 K/mm3 (1.4-6.5); GRAN % 64.8 % (42.2-75.2); HEMATOCRIT 38.4 % (37.0-47.0); HEMOGLOBIN 12.5 g/dl (12.5-16.0); LYMPH % 23.3 % (20.0-51.0); MEAN CELL VOLUME 88 fl (80.0-100.0); MEAN CORPUSCULAR HEMOGLOBIN 29 pg (27-31); MEAN CORPUSCULAR HGB CONC 33 g/dl (33.0-37.0); MEAN PLATELET VOLUME 9.6 fl (7.4-10.4); MONO # 0.7 K/mm3 (0.1-0.6); MONO % 8.4 % (1.7-9.3); PLATELET COUNT 253 K/mm3 (130-400); RED BLOOD COUNT 4.37 M/mm3 (4.10-5.30); REDCELL DISTRIBUTION WIDTH-CV 14.6 % (11.5-14.5)
[2021-09-13 12:26] LABS: INR 1.1 (0.8-3.0); PROTHROMBIN TIME 12.3 SECONDS (9.7-12.8)
[2021-09-13 12:34] LABS: ALANINE AMINOTRANSFERASE 10 U/L (0-55); ALBUMIN 3.6 gm/dL (3.4-4.8); ALKALINE PHOSPHATASE 63 U/L (40-150); ANION GAP 8 mmol/L (7-16); AST,SGOT 9 U/L (5-34); BILIRUBIN,TOTAL 0.5 mg/dL (0.2-1.2); BLOOD UREA NITROGEN 21 mg/dL (10-20); CALCIUM 9.1 mg/dL (8.4-10.2); CARBON DIOXIDE 23 mmol/L (23-31); CHLORIDE 104 mmol/L (98-107); CREATININE, serum 1.14 mg/dL (0.57-1.11); GLUCOSE 123 mg/dL (70-99); POTASSIUM 4.3 mmol/L (3.5-4.5); SODIUM 135 mmol/L (136-145); TOTAL PROTEIN 6.9 gm/dL (6.2-8.1)
[2021-09-13 12:40] LABS: TROPONIN-I < 0.010 ng/mL (0.00-0.033)
[2021-09-13 13:05] VITALS: BP 148/76; PULSE 80
== END 2021-09-13 13:05 | disposition home or self-care (01) ==
LOC: COL.ER 11:52
PROVIDERS: Nurse Practitioner Primary Care
DX: R07.9 Chest pain, unspecified (principal); Z95.5 Presence of coronary angioplasty implant and graft; Z95.0 Presence of cardiac pacemaker

== ENCOUNTER 2021-10-11 17:12 | Observation (INO) | payer MEDICARE, MEDICAID ==
[~2021-10-11] VITALS: Ht 165.1 cm; Wt 90.8 kg
[2021-10-11 18:10] LABS: BASO % 0.4 % (0.0-2.0); EOS # 0.3 K/mm3 (0.0-0.7); EOS % 3.2 % (0.0-4.0); GRAN # 6.4 K/mm3 (1.4-6.5); GRAN % 62.2 % (42.2-75.2); HEMOGLOBIN 13.1 g/dl (12.5-16.0); LYMPH # 2.7 K/mm3 (1.2-3.4); LYMPH % 26.7 % (20.0-51.0); MEAN CELL VOLUME 88 fl (80.0-100.0); MEAN CORPUSCULAR HEMOGLOBIN 30 pg (27-31); MEAN CORPUSCULAR HGB CONC 34 g/dl (33.0-37.0); MONO # 0.7 K/mm3 (0.1-0.6); MONO % 7.2 % (1.7-9.3); PLATELET COUNT 260 K/mm3 (130-400); RED BLOOD COUNT 4.41 M/mm3 (4.10-5.30); REDCELL DISTRIBUTION WIDTH-CV 14.3 % (11.5-14.5)
[2021-10-11 18:21] LABS: ALANINE AMINOTRANSFERASE 15 U/L (0-55); ALBUMIN 3.5 gm/dL (3.4-4.8); ALKALINE PHOSPHATASE 69 U/L (40-150); ANION GAP 12 mmol/L (7-16); AST,SGOT 12 U/L (5-34); BILIRUBIN,TOTAL 0.7 mg/dL (0.2-1.2); BLOOD UREA NITROGEN 22 mg/dL (10-20); CALCIUM 8.8 mg/dL (8.4-10.2); CARBON DIOXIDE 21 mmol/L (23-31); CHLORIDE 103 mmol/L (98-107); CREATININE, serum 1.22 mg/dL (0.57-1.11); GLUCOSE 104 mg/dL (70-99); POTASSIUM 4.6 mmol/L (3.5-4.5); SODIUM 136 mmol/L (136-145); TOTAL PROTEIN 7.2 gm/dL (6.2-8.1)
[2021-10-11 18:28] LABS: TROPONIN-I < 0.010 ng/mL (0.00-0.033)
[2021-10-11 20:43] VITALS: BP 89/51; PULSE 81; TEMP 97.4
[2021-10-11] MEDS ORDERED: CEPHALEXIN500 M1 PO (20:43)
[2021-10-12 00:16] VITALS: BP 103/68; PULSE 80; TEMP 99
[2021-10-12 03:59] VITALS: BP 114/60; PULSE 80; TEMP 98.3
--- NOTE | 2021-10-12 06:28 | NUR ---
ASSUMED CARE OF PATIENT AFTER RECEIVING REPORT FROM ER. ADMISSION ASSESSMENT AND HISTORY COMPLETED. PATIENT C/O CHEST PAIN 2/10 AND STATES BASELINE IS 0/10. DURING MORNING ASSESSMENT PATIENT DENIES CHEST PAIN. NO ACUTE EVENTS OVERNIGHT. BEDSIDE REPORT TO BE GIVEN TO ONCOMING SHIFT.
[2021-10-12 06:41] LABS: BASO % 0.3 % (0.0-2.0); EOS # 0.3 K/mm3 (0.0-0.7); EOS % 4.1 % (0.0-4.0); GRAN # 4.3 K/mm3 (1.4-6.5); GRAN % 58.7 % (42.2-75.2); HEMOGLOBIN 11.4 g/dl (12.5-16.0); LYMPH # 2.1 K/mm3 (1.2-3.4); LYMPH % 28.9 % (20.0-51.0); MEAN CELL VOLUME 91 fl (80.0-100.0); MEAN CORPUSCULAR HEMOGLOBIN 30 pg (27-31); MEAN CORPUSCULAR HGB CONC 33 g/dl (33.0-37.0); MEAN PLATELET VOLUME 9.9 fl (7.4-10.4); MONO # 0.6 K/mm3 (0.1-0.6); MONO % 7.7 % (1.7-9.3); PLATELET COUNT 194 K/mm3 (130-400); RED BLOOD COUNT 3.84 M/mm3 (4.10-5.30); REDCELL DISTRIBUTION WIDTH-CV 14.6 % (11.5-14.5)
[2021-10-12 06:43] LABS: HEMATOCRIT 34.9 % (37.0-47.0)
[2021-10-12 06:56] LABS: CALCIUM 8.1 mg/dL (8.4-10.2); CREATININE, serum 1.25 mg/dL (0.57-1.11); POTASSIUM 4.3 mmol/L (3.5-4.5)
[2021-10-12 07:14] VITALS: BP 112/62; PULSE 78; TEMP 97.7
--- NOTE | 2021-10-12 08:45 | NUR ---
PT LAYING SUPINE IN BED ON ROOM AIR. PT STATES THAT SHE IS NOT HAVING ANY CHEST PAIN AT THIS TIME. PT STATES "I AM JUST HUNGRY AND WOULD LIKE SOMETHING TO EAT." EXPLAINED TO PT SHE IS STAYING NPO INCASE THERE ARE ANY TESTS OR ANYTHING THAT NEED TO BE DONE TODAY. PT VOICED UNDERSTANDING. PT STATES NO NEEDS OR ANYTHING ELSE AT THIS TIME. CALL LIGHT IS WITHIN REACH.
--- NOTE | 2021-10-12 09:24 | NUR ---
SW met with the patient to discuss discharge plan. The patient lives in [place] with her , Ravi (ph#[phone]), and their son, Jose J (ph#[phone]). She reports needing some assistance with bathing and has a cane for when she goes out and a rollator for longer distances. The patient states that she private [facility] to help her with bathing and that she also has home health services for long-term from [facility]. The patient's PCP is Dr. Chris Alves and she receives her medications from [facility]. The patient's DPOA-HC is in EMR and it designates her . The alternate is her son, Jose J. The patient states that it is best to call Jose J if we need anything. The patient plans on returning home with her family and resuming previous services upon discharge. YASMINE attempted to contact Jose J to review the above. YASMINE left him a voicemail. YASMINE contacted and faxed updates to [facility]. SW to continue to follow. *Discharge plan: home with family, home health, and an aide for bathing*
[2021-10-12 11:14] VITALS: BP 114/61; PULSE 83; TEMP 98.8
--- NOTE | 2021-10-12 12:23 | NUR ---
Cassia: Scientologist Situation: Slasher stopped by on rounds Background: Pt is doing well Assessment: Pt is from around [place] and had a good talk Recommendation: Slasher will follow up as needed
[2021-10-12] MEDS ORDERED: CARAFATE S1 GM/10 ML PO (14:03)
--- NOTE | 2021-10-12 14:22 | NUR ---
The patient is to discharge back home with her and son today, 10/12, and resume home health services for halfway from [facility]. SW notified and faxed orders to [facility]. No additional needs at this time.
[2021-10-12] MEDS ORDERED: PROTONIX 40MG T40 MG PO (15:11)
== END 2021-10-12 15:20 | disposition home or self-care (01) ==
LOC: COL.ER 17:12 → MEDICAL 19:12
PROVIDERS: Personal Emergency Response Attendant; Student in an Organized Health Care Education/Training Program; ADMIT Student in an Organized Health Care Education/Training Program
DX: R07.9 Chest pain, unspecified (principal); I25.10 Atherosclerotic heart disease of native coronary artery without angina pectoris; E78.5 Hyperlipidemia, unspecified; I11.0 Hypertensive heart disease with heart failure; I50.30 Unspecified diastolic (congestive) heart failure; J44.9 Chronic obstructive pulmonary disease, unspecified; Z66 Do not resuscitate; K21.9 Gastro-esophageal reflux disease without esophagitis; F32.A Depression, unspecified; F41.9 Anxiety disorder, unspecified; G25.81 Restless legs syndrome; C44.90 Unspecified malignant neoplasm of skin, unspecified; T39.1X6A Underdosing of 4-Aminophenol derivatives, initial encounter; T47.1X6A Underdosing of other antacids and anti-gastric-secretion drugs, initial encounter; Y92.9 Unspecified place or not applicable; Z95.0 Presence of cardiac pacemaker; Z79.899 Other long term (current) drug therapy; Z79.82 Long term (current) use of aspirin; Z79.02 Long term (current) use of antithrombotics/antiplatelets; Z95.5 Presence of coronary angioplasty implant and graft
CPT/HCPCS: C9113; G0378; J1644; J2270; J2405; J7040

== ENCOUNTER 2021-11-25 21:48 | Emergency (ER) | payer MEDICARE, MEDICAID ==
[~2021-11-25] VITALS: Ht 165.1 cm; Wt 90.9 kg
[~2021-11-25 21:48] MED LIST changes: +CARAFATE S1 GM/10 ML PO; +CEPHALEXIN500 M1 PO
[2021-11-25 21:50] VITALS: TEMP 98.6
[2021-11-25 22:27] LABS: BASO % 0.4 % (0.0-2.0); EOS # 0.4 K/mm3 (0.0-0.7); EOS % 4.4 % (0.0-4.0); GRAN # 4.4 K/mm3 (1.4-6.5); GRAN % 53.3 % (42.2-75.2); HEMATOCRIT 37.3 % (37.0-47.0); HEMOGLOBIN 12.3 g/dl (12.5-16.0); LYMPH # 2.9 K/mm3 (1.2-3.4); LYMPH % 34.8 % (20.0-51.0); MEAN CELL VOLUME 90 fl (80.0-100.0); MEAN CORPUSCULAR HEMOGLOBIN 30 pg (27-31); MEAN CORPUSCULAR HGB CONC 33 g/dl (33.0-37.0); MEAN PLATELET VOLUME 9.4 fl (7.4-10.4); MONO # 0.6 K/mm3 (0.1-0.6); MONO % 6.7 % (1.7-9.3); PLATELET COUNT 234 K/mm3 (130-400); RED BLOOD COUNT 4.16 M/mm3 (4.10-5.30); REDCELL DISTRIBUTION WIDTH-CV 14.2 % (11.5-14.5)
[2021-11-25 22:34] LABS: PROTHROMBIN TIME 11.8 SECONDS (9.7-12.8)
[2021-11-25 22:37] LABS: PARTIAL THROMBOPLASTIN TIME 32.8 SECONDS (26.0-37.0)
[2021-11-25 22:44] LABS: ALANINE AMINOTRANSFERASE 13 U/L (0-55); ALBUMIN 3.3 gm/dL (3.4-4.8); ALKALINE PHOSPHATASE 64 U/L (40-150); ANION GAP 11 mmol/L (7-16); AST,SGOT 11 U/L (5-34); BILIRUBIN,TOTAL 0.3 mg/dL (0.2-1.2); BLOOD UREA NITROGEN 27 mg/dL (10-20); CARBON DIOXIDE 21 mmol/L (23-31); CHLORIDE 106 mmol/L (98-107); CREATININE, serum 1.01 mg/dL (0.57-1.11); GLUCOSE 103 mg/dL (70-99); POTASSIUM 4.5 mmol/L (3.5-4.5); SODIUM 138 mmol/L (136-145)
[2021-11-25 22:52] LABS: TROPONIN-I < 0.010 ng/mL (0.00-0.033)
[2021-11-25 23:30] VITALS: BP 128/77; PULSE 80
== END 2021-11-25 23:51 | disposition home or self-care (01) ==
LOC: COL.ER 21:48
PROVIDERS: Family Medicine
DX: J44.9 Chronic obstructive pulmonary disease, unspecified (principal); J45.901 Unspecified asthma with (acute) exacerbation

== ENCOUNTER 2021-12-01 11:06 | Emergency (ER) | payer MEDICARE, MEDICAID ==
[~2021-12-01] VITALS: Ht 165.1 cm; Wt 90.9 kg
[2021-12-01 11:40] LABS: BASO % 0.4 % (0.0-2.0); EOS # 0.3 K/mm3 (0.0-0.7); EOS % 2.8 % (0.0-4.0); GRAN # 7.5 K/mm3 (1.4-6.5); GRAN % 70.5 % (42.2-75.2); HEMOGLOBIN 11.8 g/dl (12.5-16.0); LYMPH % 18.5 % (20.0-51.0); MEAN CELL VOLUME 92 fl (80.0-100.0); MEAN CORPUSCULAR HEMOGLOBIN 29 pg (27-31); MEAN CORPUSCULAR HGB CONC 32 g/dl (33.0-37.0); MEAN PLATELET VOLUME 9.2 fl (7.4-10.4); MONO # 0.8 K/mm3 (0.1-0.6); MONO % 7.4 % (1.7-9.3); PLATELET COUNT 236 K/mm3 (130-400); RED BLOOD COUNT 4.02 M/mm3 (4.10-5.30); REDCELL DISTRIBUTION WIDTH-CV 14.4 % (11.5-14.5)
[2021-12-01 11:41] LABS: HEMATOCRIT 36.8 % (37.0-47.0)
[2021-12-01 11:45] LABS: PROTHROMBIN TIME 11.7 SECONDS (9.7-12.8)
[2021-12-01 11:48] LABS: PARTIAL THROMBOPLASTIN TIME 29.4 SECONDS (26.0-37.0)
[2021-12-01 12:03] LABS: ALANINE AMINOTRANSFERASE 8 U/L (0-55); ALBUMIN 3.2 gm/dL (3.4-4.8); ALKALINE PHOSPHATASE 64 U/L (40-150); ANION GAP 10 mmol/L (7-16); AST,SGOT 9 U/L (5-34); BILIRUBIN,TOTAL 0.5 mg/dL (0.2-1.2); BLOOD UREA NITROGEN 23 mg/dL (10-20); CALCIUM 8.9 mg/dL (8.4-10.2); CARBON DIOXIDE 20 mmol/L (23-31); CHLORIDE 107 mmol/L (98-107); CREATININE, serum 1.05 mg/dL (0.57-1.11); GLUCOSE 107 mg/dL (70-99); POTASSIUM 4.4 mmol/L (3.5-4.5); SODIUM 137 mmol/L (136-145); TOTAL PROTEIN 6.6 gm/dL (6.2-8.1)
[2021-12-01 12:10] LABS: TROPONIN-I < 0.010 ng/mL (0.00-0.033)
[2021-12-01 12:50] VITALS: BP 154/96; PULSE 80; TEMP 97.7
[2021-12-01] MEDS ORDERED: RANEXA 500MG T500 MG PO (13:01)
== END 2021-12-01 13:04 | disposition home or self-care (01) ==
LOC: COL.ER 11:06
PROVIDERS: Family Medicine
DX: R07.89 Other chest pain (principal); Z87.09 Personal history of other diseases of the respiratory system

== ENCOUNTER 2021-12-11 15:09 | Emergency (ER) | payer MEDICARE, MEDICAID ==
[~2021-12-11] VITALS: Ht 165.1 cm; Wt 90.9 kg
[2021-12-11 15:25] VITALS: TEMP 98.2
[2021-12-11 15:55] LABS: BASO % 0.5 % (0.0-2.0); EOS # 0.3 K/mm3 (0.0-0.7); EOS % 3.5 % (0.0-4.0); GRAN # 4.2 K/mm3 (1.4-6.5); GRAN % 53.7 % (42.2-75.2); HEMATOCRIT 39.2 % (37.0-47.0); LYMPH # 2.6 K/mm3 (1.2-3.4); LYMPH % 33.5 % (20.0-51.0); MEAN CELL VOLUME 87 fl (80.0-100.0); MEAN CORPUSCULAR HEMOGLOBIN 29 pg (27-31); MEAN CORPUSCULAR HGB CONC 33 g/dl (33.0-37.0); MEAN PLATELET VOLUME 9.4 fl (7.4-10.4); MONO # 0.7 K/mm3 (0.1-0.6); MONO % 8.5 % (1.7-9.3); PLATELET COUNT 265 K/mm3 (130-400); RED BLOOD COUNT 4.51 M/mm3 (4.10-5.30); REDCELL DISTRIBUTION WIDTH-CV 14.1 % (11.5-14.5)
[2021-12-11 16:04] LABS: INR 1.1 (0.8-3.0); PROTHROMBIN TIME 12.4 SECONDS (9.7-12.8)
[2021-12-11 16:14] LABS: ALANINE AMINOTRANSFERASE 11 U/L (0-55); ALBUMIN 3.5 gm/dL (3.4-4.8); ALKALINE PHOSPHATASE 66 U/L (40-150); ANION GAP 11 mmol/L (7-16); AST,SGOT 15 U/L (5-34); BILIRUBIN,TOTAL 0.5 mg/dL (0.2-1.2); BLOOD UREA NITROGEN 27 mg/dL (10-20); CALCIUM 9.4 mg/dL (8.4-10.2); CARBON DIOXIDE 21 mmol/L (23-31); CHLORIDE 104 mmol/L (98-107); CREATINE KINASE 28 U/L (29-168); CREATININE, serum 1.56 mg/dL (0.57-1.11); GLUCOSE 107 mg/dL (70-99); POTASSIUM 5.4 mmol/L (3.5-4.5); SODIUM 136 mmol/L (136-145); TOTAL PROTEIN 7.3 gm/dL (6.2-8.1)
[2021-12-11 16:21] LABS: TROPONIN-I < 0.010 ng/mL (0.00-0.033)
[2021-12-11] MEDS ORDERED: NITROSTAT0.3 MG SL (19:23)
[2021-12-11 20:00] VITALS: BP 131/79; PULSE 80
== END 2021-12-11 20:00 | disposition home or self-care (01) ==
LOC: COL.ER 15:09
PROVIDERS: Emergency Medicine
DX: R07.89 Other chest pain (principal); Z86.79 Personal history of other diseases of the circulatory system; Z95.5 Presence of coronary angioplasty implant and graft; Z28.310 Unvaccinated for COVID-19
CPT/HCPCS: J2270

== ENCOUNTER 2021-12-14 14:25 | Observation (INO) | payer MEDICARE, MEDICAID ==
[~2021-12-14] VITALS: Wt 90.9 kg
[~2021-12-14 14:25] MED LIST changes: +NITROSTAT0.3 MG SL
[2021-12-14 15:35] LABS: BASO % 0.4 % (0.0-2.0); EOS # 0.4 K/mm3 (0.0-0.7); EOS % 3.5 % (0.0-4.0); GRAN # 6.7 K/mm3 (1.4-6.5); HEMATOCRIT 37.8 % (37.0-47.0); HEMOGLOBIN 12.7 g/dl (12.5-16.0); LYMPH # 2.5 K/mm3 (1.2-3.4); LYMPH % 23.8 % (20.0-51.0); MEAN CELL VOLUME 87 fl (80.0-100.0); MEAN CORPUSCULAR HEMOGLOBIN 29 pg (27-31); MEAN CORPUSCULAR HGB CONC 34 g/dl (33.0-37.0); MEAN PLATELET VOLUME 9.8 fl (7.4-10.4); PLATELET COUNT 248 K/mm3 (130-400); RED BLOOD COUNT 4.35 M/mm3 (4.10-5.30)
[2021-12-14 15:59] LABS: ALANINE AMINOTRANSFERASE 22 U/L (0-55); ALBUMIN 3.3 gm/dL (3.4-4.8); ALKALINE PHOSPHATASE 82 U/L (40-150); ANION GAP 11 mmol/L (7-16); AST,SGOT 13 U/L (5-34); BILIRUBIN,TOTAL 0.8 mg/dL (0.2-1.2); BLOOD UREA NITROGEN 22 mg/dL (10-20); CALCIUM 9.1 mg/dL (8.4-10.2); CARBON DIOXIDE 22 mmol/L (23-31); CHLORIDE 100 mmol/L (98-107); CREATININE, serum 1.23 mg/dL (0.57-1.11); GLUCOSE 113 mg/dL (70-99); LIPASE 20 U/L (8-78); POTASSIUM 4.7 mmol/L (3.5-4.5); SODIUM 133 mmol/L (136-145); TOTAL PROTEIN 7.1 gm/dL (6.2-8.1)
[2021-12-14 16:08] LABS: TROPONIN-I < 0.010 ng/mL (0.00-0.033)
[2021-12-14 17:21] LABS: INR 1.2 (0.8-3.0); PARTIAL THROMBOPLASTIN TIME 30.5 SECONDS (26.0-37.0); PROTHROMBIN TIME 13.2 SECONDS (9.7-12.8)
--- NOTE | 2021-12-14 19:55 | NUR ---
RCVD REPORT FROM NAILA LOJA. SHE STATES SHE WILL BE BRINGING HER UP SOON, WILL LOOK FOR HANDOFF PAPERWORK SOON.
[2021-12-14 20:18] VITALS: BP 102/61; PULSE 71; TEMP 98.1
[2021-12-14] MEDS ORDERED: TOPROL XL 50MG50 MG PO (22:09)
[2021-12-14 23:46] VITALS: BP 106/57; PULSE 65; TEMP 97.6
[2021-12-15 01:13] VITALS: BP 104/61; PULSE 80
[2021-12-15 03:31] VITALS: BP 102/56; PULSE 65; TEMP 97.4
[2021-12-15 04:17] LABS: CALCIUM 8.7 mg/dL (8.4-10.2); CREATININE, serum 1.22 mg/dL (0.57-1.11); POTASSIUM 4.2 mmol/L (3.5-4.5)
[2021-12-15 04:44] LABS: BASO # 0.1 K/mm3 (0.0-0.2); BASO % 0.5 % (0.0-2.0); EOS # 0.4 K/mm3 (0.0-0.7); EOS % 3.5 % (0.0-4.0); GRAN # 5.8 K/mm3 (1.4-6.5); HEMOGLOBIN 11.4 g/dl (12.5-16.0); LYMPH # 3.2 K/mm3 (1.2-3.4); LYMPH % 31.1 % (20.0-51.0); MEAN CELL VOLUME 88 fl (80.0-100.0); MEAN CORPUSCULAR HEMOGLOBIN 29 pg (27-31); MEAN CORPUSCULAR HGB CONC 33 g/dl (33.0-37.0); MEAN PLATELET VOLUME 9.9 fl (7.4-10.4); MONO # 0.9 K/mm3 (0.1-0.6); MONO % 8.5 % (1.7-9.3); PLATELET COUNT 220 K/mm3 (130-400); RED BLOOD COUNT 3.91 M/mm3 (4.10-5.30); REDCELL DISTRIBUTION WIDTH-CV 14.3 % (11.5-14.5)
[2021-12-15 04:46] LABS: HEMATOCRIT 34.5 % (37.0-47.0)
[2021-12-15 07:45] VITALS: BP 112/53; PULSE 79; TEMP 98.7
--- NOTE | 2021-12-15 09:00 | NUR ---
Patient is resting in bed, alert and oriented x 4, VSS. Continues with hep gtt 13 ml/hr. Assessment completed, no other needs at this time. Call light within reach.
[2021-12-15] MEDS ORDERED: ELIQUIS 5MG PO (09:55)
--- NOTE | 2021-12-15 10:20 | NUR ---
Initial visit; Electrical Tech/Project Manager got to see Kylie walking with Physical Therapist and wished her a Good Morning. Kylie appears to be responding well to everyone. Electrical Tech/Project Manager will look in on her when she is in her room and not occupied.
[2021-12-15 11:57] VITALS: BP 104/61; PULSE 80
--- NOTE | 2021-12-15 14:41 | NUR ---
Patient was provided with discharge information, all questions answered. Telemetry and IV access discontinued. is here to take her home. Patient was taken to the entrance by wheelchair and staff.
== END 2021-12-15 14:43 | disposition home or self-care (01) ==
LOC: COL.ER 14:25 → MEDICAL 17:18
PROVIDERS: Emergency Medicine; ADMIT Family Medicine
DX: I26.99 Other pulmonary embolism without acute cor pulmonale (principal); I13.0 Hypertensive heart and chronic kidney disease with heart failure and stage 1 through stage 4 chronic kidney disease, or unspecified chronic kidney disease; N18.9 Chronic kidney disease, unspecified; I50.30 Unspecified diastolic (congestive) heart failure; N17.9 Acute kidney failure, unspecified; I25.10 Atherosclerotic heart disease of native coronary artery without angina pectoris; E78.5 Hyperlipidemia, unspecified; I49.5 Sick sinus syndrome; Z20.822 Contact with and (suspected) exposure to COVID-19; J44.9 Chronic obstructive pulmonary disease, unspecified; K21.9 Gastro-esophageal reflux disease without esophagitis; F32.A Depression, unspecified; F41.9 Anxiety disorder, unspecified; G25.81 Restless legs syndrome; Z95.5 Presence of coronary angioplasty implant and graft; Z95.0 Presence of cardiac pacemaker; Z79.02 Long term (current) use of antithrombotics/antiplatelets; Z79.899 Other long term (current) drug therapy; Z28.310 Unvaccinated for COVID-19; Z28.9 Immunization not carried out for unspecified reason
CPT/HCPCS: G0378; J1644; J2405; Q9967

== ENCOUNTER 2021-12-19 00:48 | Emergency (ER) | payer MEDICARE, MEDICAID ==
[~2021-12-19] VITALS: Ht 165.1 cm; Wt 90.9 kg
[~2021-12-19 00:48] MED LIST changes: +ELIQUIS 5MG PO; +TOPROL XL 50MG50 MG PO
[2021-12-19 00:55] VITALS: TEMP 98.1
[2021-12-19 01:34] LABS: BASO % 0.3 % (0.0-2.0); EOS # 0.3 K/mm3 (0.0-0.7); EOS % 3.1 % (0.0-4.0); GRAN # 6.3 K/mm3 (1.4-6.5); GRAN % 67.2 % (42.2-75.2); HEMATOCRIT 37.4 % (37.0-47.0); HEMOGLOBIN 12.5 g/dl (12.5-16.0); LYMPH % 21.6 % (20.0-51.0); MEAN CELL VOLUME 87 fl (80.0-100.0); MEAN CORPUSCULAR HEMOGLOBIN 29 pg (27-31); MEAN CORPUSCULAR HGB CONC 33 g/dl (33.0-37.0); MEAN PLATELET VOLUME 9.7 fl (7.4-10.4); MONO # 0.7 K/mm3 (0.1-0.6); MONO % 7.6 % (1.7-9.3); PLATELET COUNT 284 K/mm3 (130-400); RED BLOOD COUNT 4.31 M/mm3 (4.10-5.30); REDCELL DISTRIBUTION WIDTH-CV 13.8 % (11.5-14.5)
[2021-12-19 01:40] LABS: INR 3.2 (0.8-3.0); PROTHROMBIN TIME 36.8 SECONDS (9.7-12.8)
[2021-12-19 01:43] LABS: PARTIAL THROMBOPLASTIN TIME 43.3 SECONDS (26.0-37.0)
[2021-12-19 01:48] LABS: ALANINE AMINOTRANSFERASE 16 U/L (0-55); ALKALINE PHOSPHATASE 78 U/L (40-150); ANION GAP 16 mmol/L (7-16); AST,SGOT 10 U/L (5-34); BILIRUBIN,TOTAL 0.5 mg/dL (0.2-1.2); BLOOD UREA NITROGEN 24 mg/dL (10-20); CARBON DIOXIDE 18 mmol/L (23-31); CHLORIDE 102 mmol/L (98-107); CREATININE, serum 1.34 mg/dL (0.57-1.11); GLUCOSE 166 mg/dL (70-99); POTASSIUM 4.6 mmol/L (3.5-4.5); SODIUM 136 mmol/L (136-145)
[2021-12-19 01:56] LABS: TROPONIN-I < 0.010 ng/mL (0.00-0.033)
[2021-12-19] MEDS ORDERED: NORCO 325 MG-51 TAB PO ×3 (04:29→04:58)
[2021-12-19 05:00] VITALS: BP 107/69; PULSE 81
== END 2021-12-19 05:10 | disposition home or self-care (01) ==
LOC: COL.ER 00:48
PROVIDERS: Emergency Medicine
DX: R07.89 Other chest pain (principal); N18.9 Chronic kidney disease, unspecified; R79.0 Abnormal level of blood mineral; Z79.01 Long term (current) use of anticoagulants; Z86.711 Personal history of pulmonary embolism
CPT/HCPCS: J2270; J2405

== ENCOUNTER 2021-12-28 11:54 | Emergency (ER) | payer MEDICARE, MEDICAID ==
[~2021-12-28] VITALS: Ht 165.1 cm; Wt 90.5 kg
[2021-12-28 12:02] VITALS: TEMP 97.9
[2021-12-28 12:53] LABS: BASO # 0.1 K/mm3 (0.0-0.2); BASO % 0.5 % (0.0-2.0); EOS # 0.3 K/mm3 (0.0-0.7); EOS % 3.5 % (0.0-4.0); GRAN # 5.7 K/mm3 (1.4-6.5); GRAN % 60.9 % (42.2-75.2); HEMATOCRIT 37.3 % (37.0-47.0); HEMOGLOBIN 12.3 g/dl (12.5-16.0); LYMPH # 2.6 K/mm3 (1.2-3.4); LYMPH % 28.2 % (20.0-51.0); MEAN CELL VOLUME 88 fl (80.0-100.0); MEAN CORPUSCULAR HEMOGLOBIN 29 pg (27-31); MEAN CORPUSCULAR HGB CONC 33 g/dl (33.0-37.0); MEAN PLATELET VOLUME 9.8 fl (7.4-10.4); MONO # 0.6 K/mm3 (0.1-0.6); MONO % 6.7 % (1.7-9.3); PLATELET COUNT 317 K/mm3 (130-400); RED BLOOD COUNT 4.26 M/mm3 (4.10-5.30); REDCELL DISTRIBUTION WIDTH-CV 14.2 % (11.5-14.5)
[2021-12-28 13:04] VITALS: PULSE 67
[2021-12-28 13:15] LABS: ALBUMIN 3.4 gm/dL (3.4-4.8); BILIRUBIN,TOTAL 0.5 mg/dL (0.2-1.2); CALCIUM 9.3 mg/dL (8.4-10.2); CREATININE, serum 1.42 mg/dL (0.57-1.11); POTASSIUM 4.8 mmol/L (3.5-4.5); TOTAL PROTEIN 7.2 gm/dL (6.2-8.1)
[2021-12-28 13:36] LABS: COLLECTION METHOD CATHETER
[2021-12-28 13:52] LABS: MUCOUS Present (NOT PRESENT); PH 5 (5-8); SQUAMOUS EPITHELIAL 0-2 /hpf (0-10); URINE APPEARANCE Cloudy (CLEAR/HAZY); URINE BACTERIA Many /hpf (NONE SEEN); URINE BLOOD Negative (NEGATIVE); URINE COLOR Yellow (YELLOW); URINE GLUCOSE Negative (NEGATIVE); URINE KETONE Negative (NEGATIVE); URINE NITRATE Positive (NEGATIVE); URINE PROTEIN(semi-quant) Negative (NEGATIVE); URINE UROBILINOGEN Negative (NEGATIVE)
[2021-12-28] MEDS ORDERED: BACTRIM DS 8001 TAB PO (14:49)
[2021-12-28 14:58] VITALS: BP 107/49
== END 2021-12-28 14:59 | disposition home or self-care (01) ==
LOC: COL.ER 11:54
PROVIDERS: Nurse Practitioner Primary Care
DX: N39.0 Urinary tract infection, site not specified (principal); Z90.49 Acquired absence of other specified parts of digestive tract; Z87.19 Personal history of other diseases of the digestive system; Z88.1 Allergy status to other antibiotic agents
CPT/HCPCS: J2270; J7030

== ENCOUNTER 2022-01-12 11:48 | Inpatient (IN) | payer MEDICARE, MEDICAID ==
[~2022-01-12] VITALS: Ht 165 cm; Wt 91.9 kg
[~2022-01-12 11:48] MED LIST changes: +BACTRIM DS 8001 TAB PO
[2022-01-12 12:39] LABS: BASO % 0.6 % (0.0-2.0); EOS # 0.4 K/mm3 (0.0-0.7); EOS % 5.1 % (0.0-4.0); GRAN # 3.7 K/mm3 (1.4-6.5); GRAN % 52.9 % (42.2-75.2); HEMOGLOBIN 11.5 g/dl (12.5-16.0); LYMPH # 2.3 K/mm3 (1.2-3.4); LYMPH % 31.9 % (20.0-51.0); MEAN CELL VOLUME 88 fl (80.0-100.0); MEAN CORPUSCULAR HEMOGLOBIN 29 pg (27-31); MEAN CORPUSCULAR HGB CONC 33 g/dl (33.0-37.0); MEAN PLATELET VOLUME 10.4 fl (7.4-10.4); MONO # 0.7 K/mm3 (0.1-0.6); MONO % 9.2 % (1.7-9.3); PLATELET COUNT 232 K/mm3 (130-400); RED BLOOD COUNT 3.92 M/mm3 (4.10-5.30); REDCELL DISTRIBUTION WIDTH-CV 15.4 % (11.5-14.5)
[2022-01-12 12:42] LABS: HEMATOCRIT 34.4 % (37.0-47.0)
[2022-01-12 12:55] LABS: ALBUMIN 3.2 gm/dL (3.4-4.8); BILIRUBIN,TOTAL 0.7 mg/dL (0.2-1.2); CALCIUM 8.8 mg/dL (8.4-10.2); CREATININE, serum 1.31 mg/dL (0.57-1.11); POTASSIUM 4.5 mmol/L (3.5-4.5); TOTAL PROTEIN 6.4 gm/dL (6.2-8.1)
[2022-01-12 13:01] LABS: TROPONIN-I 0.03 ng/mL (0.00-0.033)
[2022-01-12 14:11] LABS: INR 1.6 (0.8-3.0); PROTHROMBIN TIME 18.4 SECONDS (9.7-12.8)
[2022-01-12 14:13] LABS: PARTIAL THROMBOPLASTIN TIME 37.2 SECONDS (26.0-37.0)
[2022-01-12 16:58] VITALS: BP 143/60; PULSE 66; TEMP 98.4
[2022-01-12 20:02] VITALS: BP 138/65; PULSE 64
[2022-01-12 23:32] VITALS: BP 140/62; PULSE 65
[2022-01-13] VITALS (7 sets, daily range): BP systolic 83–142; BP diastolic 50–71; PULSE 63–70; TEMP 97.6–98.6
[2022-01-13 06:08] LABS: BASO % 0.5 % (0.0-2.0); EOS # 0.5 K/mm3 (0.0-0.7); EOS % 5.8 % (0.0-4.0); GRAN # 3.4 K/mm3 (1.4-6.5); GRAN % 43.8 % (42.2-75.2); HEMOGLOBIN 11.5 g/dl (12.5-16.0); LYMPH # 3.2 K/mm3 (1.2-3.4); LYMPH % 41.7 % (20.0-51.0); MEAN CELL VOLUME 88 fl (80.0-100.0); MEAN CORPUSCULAR HEMOGLOBIN 30 pg (27-31); MEAN CORPUSCULAR HGB CONC 34 g/dl (33.0-37.0); MEAN PLATELET VOLUME 10.3 fl (7.4-10.4); MONO # 0.6 K/mm3 (0.1-0.6); MONO % 7.9 % (1.7-9.3); PLATELET COUNT 216 K/mm3 (130-400); RED BLOOD COUNT 3.88 M/mm3 (4.10-5.30); REDCELL DISTRIBUTION WIDTH-CV 15.4 % (11.5-14.5)
[2022-01-13 06:20] LABS: ALBUMIN 3.1 gm/dL (3.4-4.8); CALCIUM 8.8 mg/dL (8.4-10.2); CREATININE, serum 1.57 mg/dL (0.57-1.11); MAGNESIUM 1.7 mg/dL (1.6-2.6); PHOSPHOROUS 4.3 mg/dL (2.3-4.7); POTASSIUM 4.2 mmol/L (3.5-4.5)
[2022-01-13 06:21] LABS: HEMATOCRIT 34.3 % (37.0-47.0)
--- NOTE | 2022-01-13 08:36 | NUR ---
Pt assessment complete. Pt sitting up in bed upon entry, she is A/O x4. Her breathing is even and unlabored on RA. Pt denies SOB at rest. No chest pain at this time. Denies palpitations, N/V. Heparin infusing per protocol. Denies any needs at this time. Call light within reach.
--- NOTE | 2022-01-13 10:28 | NUR ---
Customer Service Advocate met with patient to discuss discharge planning. Patient lives outside of [place] with her , Ravi and sees Dr. Alves in [place] for primary care. Patient obtains medications from [facility] with no difficulties. Patient advised she uses a walker when she goes outside of the home, but when she's at home she ambulates without any assistive devices. Patient reports she is mostly independent with ADLS but she does have an aide from [facility] who comes out once a week to assist her with bathing. Patient has copy of DPOA-HC in chart. Patient's , Ravi is primary agent and her son, Jose J is the alternate agent. Patient plas to return home at time of discharge. Discharge Plan: Home
--- NOTE | 2022-01-13 10:30 | NUR ---
Patient is resting in bed, alert and oriented x 4. Denies chest pain at the moment. Telemetry in place, paced Receiving 500mlbolus at 250 ml/hr. Hep gtt AT 5 ml/hr. Soft blood pressure. Assessment completed. No other needs at this time. Call light within reach.
--- NOTE | 2022-01-13 11:28 | NUR ---
Reported by aid patient has a low SBP. It was retaken 99/71. Pt continue receiving 500 ml NS bolues at 250m/hr. Continue monitoring.
--- NOTE | 2022-01-13 12:54 | NUR ---
Cassia: Confucianist Situation: Bagging Salvager stopped by room on rounds Background: Pt was resting and content Assessment: Pt has no needs right now. Pt appreciated the visit Recommendation: Bagging Salvager will follow up as needed
--- NOTE | 2022-01-13 15:45 | NUR ---
Soft BP reported by aid. Talked to hospitalist Dr Uriostegui, verbal order for another bolus of NS 500 AT 250ML/HR.
--- NOTE | 2022-01-13 19:02 | NUR ---
Patient refused to be tested for COVID, educated about its need to be transfered. Pt has been stable. Report given to night RN.
--- NOTE | 2022-01-13 19:05 | NUR ---
Patient continues with soft BP, 2 boluse were given today. Pt aware of intervention tomorrow and NPO from midnight. Consent signed. Report given to night RN.
[2022-01-14] VITALS (17 sets, daily range): BP systolic 99–130; BP diastolic 55–75; PULSE 63–70; TEMP 97.9–99.1
[2022-01-14 04:56] LABS: BASO % 0.6 % (0.0-2.0); EOS # 0.4 K/mm3 (0.0-0.7); EOS % 5.4 % (0.0-4.0); GRAN # 3.1 K/mm3 (1.4-6.5); GRAN % 44.4 % (42.2-75.2); HEMOGLOBIN 10.7 g/dl (12.5-16.0); LYMPH # 2.9 K/mm3 (1.2-3.4); LYMPH % 41.8 % (20.0-51.0); MEAN CELL VOLUME 90 fl (80.0-100.0); MEAN CORPUSCULAR HEMOGLOBIN 29 pg (27-31); MEAN CORPUSCULAR HGB CONC 33 g/dl (33.0-37.0); MEAN PLATELET VOLUME 10.4 fl (7.4-10.4); MONO # 0.5 K/mm3 (0.1-0.6); MONO % 7.7 % (1.7-9.3); PLATELET COUNT 187 K/mm3 (130-400); RED BLOOD COUNT 3.64 M/mm3 (4.10-5.30); REDCELL DISTRIBUTION WIDTH-CV 15.2 % (11.5-14.5)
[2022-01-14 05:06] LABS: HEMATOCRIT 32.6 % (37.0-47.0)
[2022-01-14 05:16] LABS: ALBUMIN 2.9 gm/dL (3.4-4.8); CALCIUM 8.7 mg/dL (8.4-10.2); CREATININE, serum 1.37 mg/dL (0.57-1.11); MAGNESIUM 1.7 mg/dL (1.6-2.6); PHOSPHOROUS 3.6 mg/dL (2.3-4.7); POTASSIUM 4.3 mmol/L (3.5-4.5)
--- NOTE | 2022-01-14 05:46 | NUR ---
PT HAS HAD TWO PTT'S AT GOAL. WILL RE-DRAW IN AM IF STILL ON HEPARIN.
--- NOTE | 2022-01-14 07:31 | NUR ---
Pt assessment complete. Pt laying in bed upon entry, she is alert and oriented x4. Her breathing is tachypneic, she is SOB with any exertion. She denies SOB. Pt currently denies any pain, chest pain or palpitations. Pt asking about when her heart cath is, POC discussed with patient. All questions answered at this time. Heparin drip infusing per protocol. No needs at this time. Call light within reach.
--- NOTE | 2022-01-14 15:47 | NUR ---
See merge for all medication, assessment, intervention, and vital sign times.
--- NOTE | 2022-01-14 19:20 | NUR ---
BEGINNING OF SHIFT NOTE: PATIENT RESTING QUIETLY IN BED. PATIENT REPORTING PAIN IN GROIN AND REQUESTING PAIN PILL. PATIENT DRESSING TO GROIN CLEAN, DRY, AND INTACT.
[2022-01-15] VITALS: BP 89/45; BP 89/56; PULSE 65; TEMP 98.4
[2022-01-15 04:00] VITALS: BP 110/72; PULSE 65; TEMP 98.5
--- NOTE | 2022-01-15 06:35 | NUR ---
END OF SHIFT NOTE: PATIENT RESTED QUIETLY THIS SHIFT. PATIENT UP TO BEDSIDE COMMODE SEVERAL TIMES TO VOID AND HAVE BOWEL MOVEMENT. PATIENT REPORTED PRN [place] RECEIVED EARLIER IN SHIFT ALLEVIATED PAIN. PATIENT REMAINS ON 800 UNITS/HOUR OF HEPARIN. PATIENT RIGHT FEMORAL SITE DRESSING CLEAN, DRY, AND INTACT.
[2022-01-15 07:47] LABS: BASO % 0.4 % (0.0-2.0); EOS # 0.3 K/mm3 (0.0-0.7); EOS % 4.2 % (0.0-4.0); GRAN # 4.5 K/mm3 (1.4-6.5); GRAN % 61.2 % (42.2-75.2); HEMOGLOBIN 10.8 g/dl (12.5-16.0); LYMPH % 26.4 % (20.0-51.0); MEAN CELL VOLUME 88 fl (80.0-100.0); MEAN CORPUSCULAR HEMOGLOBIN 29 pg (27-31); MEAN CORPUSCULAR HGB CONC 33 g/dl (33.0-37.0); MEAN PLATELET VOLUME 10.6 fl (7.4-10.4); MONO # 0.6 K/mm3 (0.1-0.6); MONO % 7.7 % (1.7-9.3); PLATELET COUNT 177 K/mm3 (130-400); RED BLOOD COUNT 3.71 M/mm3 (4.10-5.30); REDCELL DISTRIBUTION WIDTH-CV 15.2 % (11.5-14.5)
[2022-01-15 07:54] LABS: HEMATOCRIT 32.8 % (37.0-47.0)
--- NOTE | 2022-01-15 08:00 | NUR ---
Patient is resting in bed, alert and oriented x 4, VSS. States had a good night and does not have chest pain of any other symptom. Continues receiving hep gtt at 700 units per hr. Assessment completed, meds provided. No other needs at this time. Call light within reach.
[2022-01-15 08:01] VITALS: BP 103/59; PULSE 65; TEMP 97.9
[2022-01-15 08:03] LABS: CALCIUM 8.9 mg/dL (8.4-10.2); CREATININE, serum 1.32 mg/dL (0.57-1.11); MAGNESIUM 1.7 mg/dL (1.6-2.6); PHOSPHOROUS 3.4 mg/dL (2.3-4.7); POTASSIUM 4.5 mmol/L (3.5-4.5)
[2022-01-15] MEDS ORDERED: ELIQUIS 5MG PO (08:57)
[2022-01-15] MEDS ORDERED: TOPROL XL 25MG25 MG PO (09:01)
[2022-01-15] MEDS ORDERED: NITROSTAT0.3 MG SL (09:01)
[2022-01-15] MEDS ORDERED: JARDIANCE10 PO (09:02)
[2022-01-15 12:00] VITALS: BP 152/86; PULSE 76; TEMP 97.9
--- NOTE | 2022-01-15 14:59 | NUR ---
Patient was provided with discharge information. IV access and telemetry was discontinued. All questions answered.
== END 2022-01-15 15:15 | disposition home or self-care (01) | DRG 280 ==
LOC: COL.ER 11:48 → MEDICAL 14:18
PROVIDERS: Family Medicine; Nurse Practitioner; ADMIT Internal Medicine
PROC: 4A023N7 Measurement of Cardiac Sampling and Pressure, Left Heart, Percutaneous Approach (ICD-10-PCS; principal; 2022-01-14)
PROC: B2111ZZ Fluoroscopy of Multiple Coronary Arteries using Low Osmolar Contrast (ICD-10-PCS; 2022-01-14)
DX: I21.4 Non-ST elevation (NSTEMI) myocardial infarction (principal); I50.33 Acute on chronic diastolic (congestive) heart failure; I25.110 Atherosclerotic heart disease of native coronary artery with unstable angina pectoris; Z96.653 Presence of artificial knee joint, bilateral; Z96.643 Presence of artificial hip joint, bilateral; Z96.611 Presence of right artificial shoulder joint; J44.9 Chronic obstructive pulmonary disease, unspecified; E78.5 Hyperlipidemia, unspecified; G25.81 Restless legs syndrome; K21.9 Gastro-esophageal reflux disease without esophagitis; F32.A Depression, unspecified; F41.9 Anxiety disorder, unspecified; I95.9 Hypotension, unspecified; I11.0 Hypertensive heart disease with heart failure; Z79.01 Long term (current) use of anticoagulants; Z90.710 Acquired absence of both cervix and uterus; Z90.49 Acquired absence of other specified parts of digestive tract; Z95.5 Presence of coronary angioplasty implant and graft; Z88.1 Allergy status to other antibiotic agents; Z88.8 Allergy status to other drugs, medicaments and biological substances; Z95.0 Presence of cardiac pacemaker; Z86.711 Personal history of pulmonary embolism; Z88.6 Allergy status to analgesic agent; Z23 Encounter for immunization
CPT/HCPCS: A9270; J1644; J1940; J2250; J2270; J3010; J7030; J7040; Q9967

== ENCOUNTER 2022-01-30 12:30 | Emergency (ER) | payer MEDICARE, MEDICAID ==
[~2022-01-30] VITALS: Ht 165.1 cm; Wt 89.1 kg
[~2022-01-30 12:30] MED LIST changes: +JARDIANCE10 PO; +TOPROL XL 25MG25 MG PO
[2022-01-30 12:42] VITALS: TEMP 98
[2022-01-30 12:52] LABS: BASO # 0.1 K/mm3 (0.0-0.2); BASO % 0.6 % (0.0-2.0); EOS # 0.4 K/mm3 (0.0-0.7); EOS % 3.9 % (0.0-4.0); GRAN # 5.6 K/mm3 (1.4-6.5); GRAN % 58.8 % (42.2-75.2); HEMATOCRIT 38.1 % (37.0-47.0); HEMOGLOBIN 12.5 g/dl (12.5-16.0); LYMPH # 2.7 K/mm3 (1.2-3.4); LYMPH % 28.6 % (20.0-51.0); MEAN CELL VOLUME 89 fl (80.0-100.0); MEAN CORPUSCULAR HEMOGLOBIN 29 pg (27-31); MEAN CORPUSCULAR HGB CONC 33 g/dl (33.0-37.0); MEAN PLATELET VOLUME 9.7 fl (7.4-10.4); MONO # 0.8 K/mm3 (0.1-0.6); MONO % 7.9 % (1.7-9.3); PLATELET COUNT 323 K/mm3 (130-400); REDCELL DISTRIBUTION WIDTH-CV 15.7 % (11.5-14.5)
[2022-01-30 13:09] LABS: ALBUMIN 3.5 gm/dL (3.4-4.8); BILIRUBIN,TOTAL 0.6 mg/dL (0.2-1.2); CALCIUM 9.5 mg/dL (8.4-10.2); CREATININE, serum 1.18 mg/dL (0.57-1.11); POTASSIUM 4.5 mmol/L (3.5-4.5); TOTAL PROTEIN 7.2 gm/dL (6.2-8.1)
[2022-01-30 13:14] LABS: TROPONIN-I 0.022 ng/mL (0.00-0.033)
[2022-01-30 14:43] VITALS: BP 117/87; PULSE 65
== END 2022-01-30 14:50 | disposition home or self-care (01) ==
LOC: COL.ER 12:30
PROVIDERS: Emergency Medicine
DX: G89.29 Other chronic pain (principal); R07.9 Chest pain, unspecified; Z86.711 Personal history of pulmonary embolism; Z95.5 Presence of coronary angioplasty implant and graft

== ENCOUNTER 2022-02-20 23:18 | Emergency (ER) | payer MEDICARE, MEDICAID ==
[~2022-02-20] VITALS: Ht 165.1 cm; Wt 88.6 kg
[2022-02-20 23:25] VITALS: TEMP 98
[2022-02-21 00:01] LABS: BASO % 0.3 % (0.0-2.0); EOS # 0.5 K/mm3 (0.0-0.7); EOS % 4.1 % (0.0-4.0); GRAN # 7.8 K/mm3 (1.4-6.5); GRAN % 66.3 % (42.2-75.2); HEMOGLOBIN 11.9 g/dl (12.5-16.0); LYMPH # 2.6 K/mm3 (1.2-3.4); LYMPH % 22.4 % (20.0-51.0); MEAN CELL VOLUME 88 fl (80.0-100.0); MEAN CORPUSCULAR HEMOGLOBIN 29 pg (27-31); MEAN CORPUSCULAR HGB CONC 33 g/dl (33.0-37.0); MEAN PLATELET VOLUME 9.5 fl (7.4-10.4); MONO # 0.8 K/mm3 (0.1-0.6); MONO % 6.7 % (1.7-9.3); PLATELET COUNT 294 K/mm3 (130-400); RED BLOOD COUNT 4.09 M/mm3 (4.10-5.30); REDCELL DISTRIBUTION WIDTH-CV 15.1 % (11.5-14.5)
[2022-02-21 00:05] LABS: HEMATOCRIT 35.8 % (37.0-47.0)
[2022-02-21 00:22] LABS: TROPONIN-I 0.026 ng/mL (0.00-0.033)
[2022-02-21 00:25] LABS: ALBUMIN 3.6 gm/dL (3.4-4.8); BILIRUBIN,TOTAL 0.4 mg/dL (0.2-1.2); CALCIUM 9.4 mg/dL (8.4-10.2); CREATININE, serum 1.18 mg/dL (0.57-1.11); INR 1.3 (0.8-3.0); POTASSIUM 4.3 mmol/L (3.5-4.5); PROTHROMBIN TIME 14.9 SECONDS (9.7-12.8); TOTAL PROTEIN 7.2 gm/dL (6.2-8.1)
[2022-02-21 00:28] LABS: PARTIAL THROMBOPLASTIN TIME 36.8 SECONDS (26.0-37.0)
[2022-02-21 06:30] VITALS: BP 156/96; PULSE 71
== END 2022-02-21 06:30 | disposition home or self-care (01) ==
LOC: COL.ER 23:18
PROVIDERS: Emergency Medicine; Family Medicine
DX: R07.2 Precordial pain (principal); Z88.6 Allergy status to analgesic agent; Z95.0 Presence of cardiac pacemaker; Z86.711 Personal history of pulmonary embolism; Z79.01 Long term (current) use of anticoagulants

== ENCOUNTER 2022-03-16 02:26 | Emergency (ER) | payer MEDICARE, MEDICAID ==
[~2022-03-16] VITALS: Ht 165.1 cm; Wt 88.6 kg
[~2022-03-16 02:26] MED LIST changes: +VALIUM 5MG T5 MG/TAB PO
[2022-03-16 02:33] VITALS: TEMP 98.2
[2022-03-16 03:07] LABS: ALBUMIN 3.6 gm/dL (3.4-4.8); BILIRUBIN,TOTAL 0.4 mg/dL (0.2-1.2); CALCIUM 9.5 mg/dL (8.4-10.2); CREATININE, serum 1.16 mg/dL (0.57-1.11); POTASSIUM 4.7 mmol/L (3.5-4.5); TOTAL PROTEIN 7.7 gm/dL (6.2-8.1)
[2022-03-16 03:13] LABS: TROPONIN-I 0.02 ng/mL (0.00-0.033)
[2022-03-16 03:30] LABS: BASO # 0.1 K/mm3 (0.0-0.2); BASO % 0.6 % (0.0-2.0); EOS # 0.4 K/mm3 (0.0-0.7); EOS % 4.3 % (0.0-4.0); GRAN # 5.5 K/mm3 (1.4-6.5); GRAN % 58.3 % (42.2-75.2); HEMOGLOBIN 11.7 g/dl (12.5-16.0); LYMPH # 2.6 K/mm3 (1.2-3.4); LYMPH % 27.7 % (20.0-51.0); MEAN CELL VOLUME 89 fl (80.0-100.0); MEAN CORPUSCULAR HEMOGLOBIN 28 pg (27-31); MEAN CORPUSCULAR HGB CONC 32 g/dl (33.0-37.0); MEAN PLATELET VOLUME 9.6 fl (7.4-10.4); MONO # 0.8 K/mm3 (0.1-0.6); MONO % 8.8 % (1.7-9.3); PLATELET COUNT 242 K/mm3 (130-400); RED BLOOD COUNT 4.12 M/mm3 (4.10-5.30); REDCELL DISTRIBUTION WIDTH-CV 15.4 % (11.5-14.5)
[2022-03-16 03:31] LABS: HEMATOCRIT 36.6 % (37.0-47.0)
[2022-03-16 06:10] VITALS: BP 130/78; PULSE 68
== END 2022-03-16 06:10 | disposition home or self-care (01) ==
LOC: COL.ER 02:26
PROVIDERS: Emergency Medicine
DX: R07.89 Other chest pain (principal)

== ENCOUNTER 2022-03-19 05:48 | Emergency (ER) | payer MEDICARE, MEDICAID ==
[~2022-03-19] VITALS: Ht 154.9 cm; Wt 93.2 kg
[2022-03-19 05:53] VITALS: TEMP 97.8
[2022-03-19 06:16] LABS: BASO % 0.3 % (0.0-2.0); EOS # 0.4 K/mm3 (0.0-0.7); GRAN # 5.1 K/mm3 (1.4-6.5); GRAN % 54.8 % (42.2-75.2); HEMOGLOBIN 12.2 g/dl (12.5-16.0); LYMPH # 3.1 K/mm3 (1.2-3.4); LYMPH % 33.1 % (20.0-51.0); MEAN CELL VOLUME 86 fl (80.0-100.0); MEAN CORPUSCULAR HEMOGLOBIN 28 pg (27-31); MEAN CORPUSCULAR HGB CONC 33 g/dl (33.0-37.0); MEAN PLATELET VOLUME 9.3 fl (7.4-10.4); MONO # 0.7 K/mm3 (0.1-0.6); MONO % 7.6 % (1.7-9.3); PLATELET COUNT 261 K/mm3 (130-400)
[2022-03-19 06:19] LABS: HEMATOCRIT 36.9 % (37.0-47.0)
[2022-03-19 06:23] LABS: PROTHROMBIN TIME 11.5 SECONDS (9.7-12.8)
[2022-03-19 06:26] LABS: PARTIAL THROMBOPLASTIN TIME 34.1 SECONDS (26.0-37.0)
[2022-03-19 06:36] LABS: ALBUMIN 3.5 gm/dL (3.4-4.8); BILIRUBIN,TOTAL 0.4 mg/dL (0.2-1.2); CALCIUM 9.1 mg/dL (8.4-10.2); CREATININE, serum 1.16 mg/dL (0.57-1.11); POTASSIUM 4.2 mmol/L (3.5-4.5); TOTAL PROTEIN 7.2 gm/dL (6.2-8.1)
[2022-03-19 06:41] LABS: TROPONIN-I 0.025 ng/mL (0.00-0.033)
[2022-03-19 07:06] VITALS: O2SAT 95
[2022-03-19 10:36] VITALS: BP 101/60; PULSE 65
== END 2022-03-19 09:15 | disposition home or self-care (01) ==
LOC: COL.ER 05:48
PROVIDERS: Emergency Medicine
DX: R07.89 Other chest pain (principal); R06.02 Shortness of breath; Z95.0 Presence of cardiac pacemaker; Z95.5 Presence of coronary angioplasty implant and graft
CPT/HCPCS: J3010

== ENCOUNTER 2022-03-24 03:42 | Emergency (ER) | payer MEDICARE, MEDICAID ==
[~2022-03-24] VITALS: Ht 165.1 cm; Wt 88.6 kg
[2022-03-24 03:49] VITALS: TEMP 97.7
[2022-03-24 05:18] LABS: BASO % 0.5 % (0.0-2.0); EOS # 0.4 K/mm3 (0.0-0.7); EOS % 4.5 % (0.0-4.0); GRAN # 4.8 K/mm3 (1.4-6.5); GRAN % 56.1 % (42.2-75.2); LYMPH # 2.6 K/mm3 (1.2-3.4); LYMPH % 30.3 % (20.0-51.0); MEAN CELL VOLUME 85 fl (80.0-100.0); MEAN CORPUSCULAR HEMOGLOBIN 28 pg (27-31); MEAN CORPUSCULAR HGB CONC 33 g/dl (33.0-37.0); MONO # 0.7 K/mm3 (0.1-0.6); MONO % 8.4 % (1.7-9.3); PLATELET COUNT 224 K/mm3 (130-400); RED BLOOD COUNT 3.89 M/mm3 (4.10-5.30); REDCELL DISTRIBUTION WIDTH-CV 15.1 % (11.5-14.5)
[2022-03-24 05:19] LABS: HEMATOCRIT 32.9 % (37.0-47.0)
[2022-03-24 05:31] LABS: ALANINE AMINOTRANSFERASE 19 U/L (0-55); ALKALINE PHOSPHATASE 60 U/L (40-150); ANION GAP 8 mmol/L (7-16); AST,SGOT 12 U/L (5-34); BILIRUBIN,TOTAL 0.4 mg/dL (0.2-1.2); BLOOD UREA NITROGEN 18 mg/dL (10-20); CALCIUM 8.5 mg/dL (8.4-10.2); CARBON DIOXIDE 19 mmol/L (23-31); CHLORIDE 111 mmol/L (98-107); CREATININE, serum 0.86 mg/dL (0.57-1.11); GLUCOSE 100 mg/dL (70-99); POTASSIUM 3.9 mmol/L (3.5-4.5); SODIUM 138 mmol/L (136-145); TOTAL PROTEIN 6.2 gm/dL (6.2-8.1)
[2022-03-24 05:39] LABS: TROPONIN-I < 0.010 ng/mL (0.00-0.033)
[2022-03-24] MEDS ORDERED: VALIUM 5MG T5 MG/TAB PO (06:05)
[2022-03-24 06:18] VITALS: BP 136/84; PULSE 65
== END 2022-03-24 06:18 | disposition home or self-care (01) ==
LOC: COL.ER 03:42
PROVIDERS: Personal Emergency Response Attendant
DX: R07.89 Other chest pain (principal); Z86.711 Personal history of pulmonary embolism; Z95.5 Presence of coronary angioplasty implant and graft; Z95.0 Presence of cardiac pacemaker; Z79.01 Long term (current) use of anticoagulants

== ENCOUNTER 2022-09-04 01:25 | Emergency (ER) | payer MEDICARE, MEDICAID ==
[~2022-09-04] VITALS: Ht 165.1 cm; Wt 88.6 kg
[2022-09-04 01:45] VITALS: TEMP 98
[2022-09-04 02:20] LABS: BASO # 0.1 K/mm3 (0.0-0.2); BASO % 0.5 % (0.0-2.0); EOS # 0.4 K/mm3 (0.0-0.7); EOS % 3.5 % (0.0-4.0); GRAN # 6.5 K/mm3 (1.4-6.5); GRAN % 60.5 % (42.2-75.2); HEMOGLOBIN 11.3 g/dl (12.5-16.0); LYMPH # 2.8 K/mm3 (1.2-3.4); LYMPH % 25.9 % (20.0-51.0); MEAN CELL VOLUME 82 fl (80.0-100.0); MEAN CORPUSCULAR HEMOGLOBIN 27 pg (27-31); MEAN CORPUSCULAR HGB CONC 33 g/dl (33.0-37.0); MEAN PLATELET VOLUME 9.7 fl (7.4-10.4); MONO % 9.3 % (1.7-9.3); PLATELET COUNT 257 K/mm3 (130-400); RED BLOOD COUNT 4.19 M/mm3 (4.10-5.30); REDCELL DISTRIBUTION WIDTH-CV 15.7 % (11.5-14.5)
[2022-09-04 02:22] LABS: HEMATOCRIT 34.3 % (37.0-47.0)
[2022-09-04 02:31] LABS: ALBUMIN 3.2 gm/dL (3.4-4.8); BILIRUBIN,TOTAL 0.4 mg/dL (0.2-1.2); CALCIUM 8.8 mg/dL (8.4-10.2); CREATININE, serum 1.18 mg/dL (0.57-1.11); POTASSIUM 4.2 mmol/L (3.5-4.5); TOTAL PROTEIN 6.6 gm/dL (6.2-8.1)
[2022-09-04 02:36] LABS: TROPONIN-I 0.012 ng/mL (0.00-0.033)
[2022-09-04 05:10] VITALS: BP 119/66; PULSE 76
== END 2022-09-04 05:15 | disposition home or self-care (01) ==
LOC: COL.ER 01:25
PROVIDERS: Personal Emergency Response Attendant
DX: R07.2 Precordial pain (principal); D64.9 Anemia, unspecified; Z79.02 Long term (current) use of antithrombotics/antiplatelets; Z95.0 Presence of cardiac pacemaker; Z95.5 Presence of coronary angioplasty implant and graft
CPT/HCPCS: J2060; J2270; J2405

== ENCOUNTER 2022-10-04 11:14 | Emergency (ER) | payer MEDICARE, MEDICAID ==
[~2022-10-04] VITALS: Ht 165.1 cm; Wt 89.5 kg
[~2022-10-04 11:14] MED LIST changes: +ATARAX 25MG25 MG/TAB PO; +XOPENEX HF0.045 MG/A IH
[2022-10-04 11:20] VITALS: TEMP 98.3
[2022-10-04 12:26] LABS: BASO % 0.3 % (0.0-2.0); EOS # 0.3 K/mm3 (0.0-0.7); EOS % 3.1 % (0.0-4.0); GRAN # 5.5 K/mm3 (1.4-6.5); GRAN % 61.3 % (42.2-75.2); HEMOGLOBIN 11.6 g/dl (12.5-16.0); LYMPH # 2.5 K/mm3 (1.2-3.4); LYMPH % 28.2 % (20.0-51.0); MEAN CELL VOLUME 84 fl (80.0-100.0); MEAN CORPUSCULAR HEMOGLOBIN 27 pg (27-31); MEAN CORPUSCULAR HGB CONC 32 g/dl (33.0-37.0); MEAN PLATELET VOLUME 9.7 fl (7.4-10.4); MONO # 0.6 K/mm3 (0.1-0.6); MONO % 6.9 % (1.7-9.3); PLATELET COUNT 243 K/mm3 (130-400); RED BLOOD COUNT 4.36 M/mm3 (4.10-5.30); REDCELL DISTRIBUTION WIDTH-CV 16.4 % (11.5-14.5)
[2022-10-04 12:28] LABS: HEMATOCRIT 36.4 % (37.0-47.0)
[2022-10-04 12:42] LABS: ALANINE AMINOTRANSFERASE 12 U/L (0-55); ALBUMIN 3.4 gm/dL (3.4-4.8); ALKALINE PHOSPHATASE 66 U/L (40-150); ANION GAP 9 mmol/L (7-16); AST,SGOT 11 U/L (5-34); BILIRUBIN,TOTAL 0.4 mg/dL (0.2-1.2); BLOOD UREA NITROGEN 28 mg/dL (10-20); CALCIUM 9.3 mg/dL (8.4-10.2); CARBON DIOXIDE 21 mmol/L (23-31); CHLORIDE 106 mmol/L (98-107); CREATININE, serum 1.13 mg/dL (0.57-1.11); GLUCOSE 94 mg/dL (70-99); POTASSIUM 4.6 mmol/L (3.5-4.5); SODIUM 136 mmol/L (136-145)
[2022-10-04 12:48] LABS: TROPONIN-I < 0.010 ng/mL (0.00-0.033)
[2022-10-04 14:03] VITALS: BP 158/83; PULSE 63
== END 2022-10-04 14:03 | disposition home or self-care (01) ==
LOC: COL.ER 11:14
PROVIDERS: Personal Emergency Response Attendant
DX: L29.9 Pruritus, unspecified (principal); T50.905A Adverse effect of unspecified drugs, medicaments and biological substances, initial encounter; R25.1 Tremor, unspecified
CPT/HCPCS: J1200

== ENCOUNTER 2023-06-01 11:54 | Emergency (ER) | payer MEDICARE, MEDICAID ==
[~2023-06-01] VITALS: Ht 165.1 cm; Wt 89.5 kg
[~2023-06-01 11:54] MED LIST changes: +KEPPRA 500MG500 MG PO; +PEPCID 20MG TAB20 MG PO; +PULMICORT180 MCG/Ac IH
[2023-06-01 12:27] LABS: BASO # 0.1 K/mm3 (0.0-0.2); BASO % 0.4 % (0.0-2.0); EOS # 0.4 K/mm3 (0.0-0.7); EOS % 3.2 % (0.0-4.0); GRAN # 7.4 K/mm3 (1.4-6.5); HEMATOCRIT 41.8 % (37.0-47.0); HEMOGLOBIN 13.3 g/dl (12.5-16.0); LYMPH # 3.3 K/mm3 (1.2-3.4); LYMPH % 27.4 % (20.0-51.0); MEAN CELL VOLUME 90 fl (80.0-100.0); MEAN CORPUSCULAR HEMOGLOBIN 29 pg (27-31); MEAN CORPUSCULAR HGB CONC 32 g/dl (33.0-37.0); MEAN PLATELET VOLUME 9.6 fl (7.4-10.4); MONO # 0.9 K/mm3 (0.1-0.6); MONO % 7.6 % (1.7-9.3); PLATELET COUNT 257 K/mm3 (130-400); RED BLOOD COUNT 4.64 M/mm3 (4.10-5.30); REDCELL DISTRIBUTION WIDTH-CV 15.8 % (11.5-14.5)
[2023-06-01 12:38] LABS: COLLECTION METHOD CATHETER
[2023-06-01 12:41] LABS: ALANINE AMINOTRANSFERASE 16 U/L (0-55); ALBUMIN 3.3 gm/dL (3.4-4.8); ALKALINE PHOSPHATASE 81 U/L (40-150); ANION GAP 13 mmol/L (7-16); AST,SGOT 13 U/L (5-34); BILIRUBIN,TOTAL 0.9 mg/dL (0.2-1.2); BLOOD UREA NITROGEN 21 mg/dL (10-20); CALCIUM 9.8 mg/dL (8.4-10.2); CARBON DIOXIDE 19 mmol/L (23-31); CHLORIDE 106 mmol/L (98-107); CREATININE, serum 1.15 mg/dL (0.57-1.11); GLUCOSE 102 mg/dL (70-99); POTASSIUM 4.5 mmol/L (3.5-4.5); SODIUM 138 mmol/L (136-145)
[2023-06-01 12:50] LABS: TROPONIN-I < 0.010 ng/mL (0.00-0.033)
[2023-06-01 13:24] LABS: URINE APPEARANCE Clear (CLEAR/HAZY); URINE COLOR Yellow (YELLOW); URINE GLUCOSE Negative (NEGATIVE); URINE KETONE TRACE (NEGATIVE); URINE PROTEIN(semi-quant) Negative (NEGATIVE); URINE UROBILINOGEN 0.2 E.U/dL (0.2-1.0)
[2023-06-01 13:25] LABS: MUCOUS Present (NOT PRESENT); URINE BACTERIA Many /hpf (NONE SEEN); URINE BLOOD Negative (NEGATIVE); URINE NITRATE Positive (NEGATIVE); URINE RBC 0-2 /hpf (0-2)
[2023-06-01] MEDS ORDERED: MACROBID 1100 MG/CAP PO (15:04)
[2023-06-01 15:29] VITALS: BP 174/104; PULSE 113; TEMP 98.5
== END 2023-06-01 15:29 | disposition home or self-care (01) ==
LOC: COL.ER 11:54
PROVIDERS: Nurse Practitioner
DX: N39.0 Urinary tract infection, site not specified (principal); F41.9 Anxiety disorder, unspecified; R55 Syncope and collapse; Z88.1 Allergy status to other antibiotic agents
CPT/HCPCS: J2060

== ENCOUNTER 2023-06-25 12:09 | Emergency (ER) | payer MEDICARE, MEDICAID ==
[~2023-06-25] VITALS: Ht 165.1 cm; Wt 89.5 kg
[2023-06-25 13:05] LABS: BASO # 0.1 K/mm3 (0.0-0.2); BASO % 0.6 % (0.0-2.0); EOS # 0.5 K/mm3 (0.0-0.7); EOS % 6.1 % (0.0-4.0); GRAN # 4.9 K/mm3 (1.4-6.5); GRAN % 56.1 % (42.2-75.2); HEMATOCRIT 40.1 % (37.0-47.0); HEMOGLOBIN 13.2 g/dl (12.5-16.0); LYMPH # 2.6 K/mm3 (1.2-3.4); LYMPH % 29.8 % (20.0-51.0); MEAN CELL VOLUME 89 fl (80.0-100.0); MEAN CORPUSCULAR HEMOGLOBIN 29 pg (27-31); MEAN CORPUSCULAR HGB CONC 33 g/dl (33.0-37.0); MEAN PLATELET VOLUME 10.2 fl (7.4-10.4); MONO # 0.6 K/mm3 (0.1-0.6); MONO % 7.1 % (1.7-9.3); PLATELET COUNT 241 K/mm3 (130-400); RED BLOOD COUNT 4.53 M/mm3 (4.10-5.30); REDCELL DISTRIBUTION WIDTH-CV 15.2 % (11.5-14.5)
[2023-06-25 13:17] LABS: ALBUMIN 3.2 gm/dL (3.4-4.8); BILIRUBIN,TOTAL 0.6 mg/dL (0.2-1.2); CALCIUM 9.2 mg/dL (8.4-10.2); CREATININE, serum 1.07 mg/dL (0.57-1.11); POTASSIUM 4.2 mmol/L (3.5-4.5)
[2023-06-25 14:10] VITALS: BP 144/88; PULSE 74; TEMP 97.8
== END 2023-06-25 14:10 | disposition home or self-care (01) ==
LOC: COL.ER 12:09
PROVIDERS: Physician Assistant
DX: J40 Bronchitis, not specified as acute or chronic (principal); Z86.711 Personal history of pulmonary embolism; Z88.1 Allergy status to other antibiotic agents; Z79.01 Long term (current) use of anticoagulants

== ENCOUNTER 2023-06-29 23:29 | Emergency (ER) | payer MEDICARE, MEDICAID ==
[~2023-06-29] VITALS: Ht 165.1 cm; Wt 89.5 kg
[2023-06-29 23:39] VITALS: TEMP 98.1
[2023-06-29] MEDS ORDERED: Morphine 4 MG/ML VIAL IV ONE (23:45)
[2023-06-29] MEDS ORDERED: Ondansetron 4 MG/2 ML VIAL IV ONE (23:45)
[2023-06-29 23:57] LABS: BASO # 0.1 K/mm3 (0.0-0.2); BASO % 0.5 % (0.0-2.0); EOS # 0.5 K/mm3 (0.0-0.7); EOS % 4.8 % (0.0-4.0); GRAN # 5.7 K/mm3 (1.4-6.5); GRAN % 56.9 % (42.2-75.2); HEMATOCRIT 42.6 % (37.0-47.0); HEMOGLOBIN 14.1 g/dl (12.5-16.0); LYMPH # 3.1 K/mm3 (1.2-3.4); LYMPH % 30.8 % (20.0-51.0); MEAN CELL VOLUME 89 fl (80.0-100.0); MEAN CORPUSCULAR HEMOGLOBIN 29 pg (27-31); MEAN CORPUSCULAR HGB CONC 33 g/dl (33.0-37.0); MONO # 0.7 K/mm3 (0.1-0.6); MONO % 6.7 % (1.7-9.3); PLATELET COUNT 266 K/mm3 (130-400); RED BLOOD COUNT 4.79 M/mm3 (4.10-5.30); REDCELL DISTRIBUTION WIDTH-CV 15.1 % (11.5-14.5)
[2023-06-30 00:03] LABS: INR 1.1 (0.8-3.0)
[2023-06-30 00:11] LABS: ALANINE AMINOTRANSFERASE 12 U/L (0-55); ALBUMIN 3.4 gm/dL (3.4-4.8); ALKALINE PHOSPHATASE 73 U/L (40-150); ANION GAP 11 mmol/L (7-16); AST,SGOT 16 U/L (5-34); BILIRUBIN,TOTAL 0.5 mg/dL (0.2-1.2); BLOOD UREA NITROGEN 27 mg/dL (10-20); CALCIUM 10.2 mg/dL (8.4-10.2); CARBON DIOXIDE 22 mmol/L (23-31); CHLORIDE 106 mmol/L (98-107); CREATINE KINASE 26 U/L (29-168); CREATININE, serum 1.21 mg/dL (0.57-1.11); GLUCOSE 126 mg/dL (70-99); POTASSIUM 4.4 mmol/L (3.5-4.5); SODIUM 139 mmol/L (136-145); TOTAL PROTEIN 7.4 gm/dL (6.2-8.1)
[2023-06-30 00:17] LABS: TROPONIN-I < 0.010 ng/mL (0.00-0.033)
[2023-06-30 00:25] VITALS: O2SAT 92
[2023-06-30] MEDS ORDERED: NS 500 ML IV ONE ×2 (00:45→01:15)
[2023-06-30] MEDS ORDERED: Morphine 4 MG/ML VIAL IV ONE (00:45)
[2023-06-30 02:03] VITALS: BP 111/67; PULSE 66
== END 2023-06-30 02:16 | disposition home or self-care (01) ==
LOC: COL.ER 23:29
PROVIDERS: Emergency Medicine
DX: R07.89 Other chest pain (principal); R79.89 Other specified abnormal findings of blood chemistry; F41.9 Anxiety disorder, unspecified; J40 Bronchitis, not specified as acute or chronic; Z95.5 Presence of coronary angioplasty implant and graft
CPT/HCPCS: J2270; J2405; J7040

== ENCOUNTER 2023-07-23 12:14 | Emergency (ER) | payer MEDICARE, MEDICAID ==
[~2023-07-23] VITALS: Ht 165.1 cm; Wt 89.5 kg
[2023-07-23] MEDS ORDERED: diazePAM 5 MG TAB PO ONE (12:30)
[2023-07-23] MEDS ORDERED: LORazepam 2 MG/ML 1 ML VIAL IM ONE (14:15)
[2023-07-23 15:30] VITALS: BP 131/78; PULSE 71
== END 2023-07-23 15:30 | disposition home or self-care (01) ==
LOC: COL.ER 12:14
DX: R56.9 Unspecified convulsions (principal); Z79.899 Other long term (current) drug therapy
CPT/HCPCS: J2060

== ENCOUNTER 2023-08-18 18:40 | Emergency (ER) | payer MEDICARE, MEDICAID ==
[~2023-08-18] VITALS: Ht 165.1 cm; Wt 89.5 kg
[2023-08-18 18:51] VITALS: TEMP 97
[2023-08-18] MEDS ORDERED: Ondansetron 4 MG/2 ML VIAL IV ONE (19:30)
[2023-08-18] MEDS ORDERED: Morphine 4 MG/ML VIAL IV ONE (19:30)
[2023-08-18 19:41] LABS: BASO # 0.1 K/mm3 (0.0-0.2); BASO % 0.6 % (0.0-2.0); EOS # 0.4 K/mm3 (0.0-0.7); EOS % 4.2 % (0.0-4.0); GRAN # 5.4 K/mm3 (1.4-6.5); GRAN % 60.5 % (42.2-75.2); HEMATOCRIT 37.6 % (37.0-47.0); HEMOGLOBIN 12.4 g/dl (12.5-16.0); LYMPH # 2.2 K/mm3 (1.2-3.4); LYMPH % 24.6 % (20.0-51.0); MEAN CELL VOLUME 89 fl (80.0-100.0); MEAN CORPUSCULAR HEMOGLOBIN 29 pg (27-31); MEAN CORPUSCULAR HGB CONC 33 g/dl (33.0-37.0); MEAN PLATELET VOLUME 9.8 fl (7.4-10.4); MONO # 0.9 K/mm3 (0.1-0.6); MONO % 9.8 % (1.7-9.3); PLATELET COUNT 244 K/mm3 (130-400); RED BLOOD COUNT 4.22 M/mm3 (4.10-5.30); REDCELL DISTRIBUTION WIDTH-CV 14.8 % (11.5-14.5)
[2023-08-18 19:55] LABS: ALANINE AMINOTRANSFERASE 12 U/L (0-55); ALBUMIN 2.9 gm/dL (3.4-4.8); ALKALINE PHOSPHATASE 75 U/L (40-150); ANION GAP 8 mmol/L (7-16); AST,SGOT 10 U/L (5-34); BILIRUBIN,TOTAL 0.3 mg/dL (0.2-1.2); BLOOD UREA NITROGEN 22 mg/dL (10-20); CALCIUM 9.1 mg/dL (8.4-10.2); CHLORIDE 108 mmol/L (98-107); CREATININE, serum 1.13 mg/dL (0.57-1.11); GLUCOSE 168 mg/dL (70-99); POTASSIUM 4.5 mmol/L (3.5-4.5); SODIUM 137 mmol/L (136-145); TOTAL PROTEIN 6.4 gm/dL (6.2-8.1)
[2023-08-18 20:03] LABS: TROPONIN-I < 0.010 ng/mL (0.00-0.033)
[2023-08-18 21:55] VITALS: BP 115/74; PULSE 69
== END 2023-08-18 21:55 | disposition home or self-care (01) ==
LOC: COL.ER 18:40
PROVIDERS: Personal Emergency Response Attendant
DX: R07.2 Precordial pain (principal); I44.7 Left bundle-branch block, unspecified; J98.6 Disorders of diaphragm; Z95.0 Presence of cardiac pacemaker
CPT/HCPCS: J2270; J2405

== ENCOUNTER 2023-09-08 19:50 | Emergency (ER) | payer MEDICARE, MEDICAID ==
[~2023-09-08] VITALS: Ht 165.1 cm; Wt 89.5 kg
[2023-09-08 21:13] LABS: BASO % 0.5 % (0.0-2.0); EOS # 0.3 K/mm3 (0.0-0.7); EOS % 4.3 % (0.0-4.0); GRAN # 4.1 K/mm3 (1.4-6.5); GRAN % 54.1 % (42.2-75.2); HEMATOCRIT 37.2 % (37.0-47.0); HEMOGLOBIN 12.4 g/dl (12.5-16.0); LYMPH # 2.5 K/mm3 (1.2-3.4); LYMPH % 32.5 % (20.0-51.0); MEAN CELL VOLUME 87 fl (80.0-100.0); MEAN CORPUSCULAR HEMOGLOBIN 29 pg (27-31); MEAN CORPUSCULAR HGB CONC 33 g/dl (33.0-37.0); MEAN PLATELET VOLUME 9.6 fl (7.4-10.4); MONO # 0.7 K/mm3 (0.1-0.6); MONO % 8.5 % (1.7-9.3); PLATELET COUNT 215 K/mm3 (130-400); RED BLOOD COUNT 4.28 M/mm3 (4.10-5.30)
[2023-09-08 21:32] LABS: ALBUMIN 3.2 g/dL (3.4-4.8); BILIRUBIN,TOTAL 0.3 mg/dL (0.2-1.2); CREATININE, serum 1.42 mg/dL (0.57-1.11); POTASSIUM 4.3 mEq/L (3.5-4.5); TOTAL PROTEIN 6.8 g/dl (6.2-8.1)
[2023-09-08 22:18] VITALS: BP 129/65; PULSE 62; TEMP 97.9
== END 2023-09-08 22:18 | disposition home or self-care (01) ==
LOC: COL.ER 19:50
PROVIDERS: Nurse Practitioner Primary Care
DX: R05.9 Cough, unspecified (principal); R06.2 Wheezing

== ENCOUNTER 2023-09-23 17:06 | Emergency (ER) | payer MEDICARE, MEDICAID ==
[~2023-09-23] VITALS: Ht 165.1 cm; Wt 86.4 kg
[2023-09-23 17:07] VITALS: TEMP 98.3
[2023-09-23] MEDS ORDERED: Pantoprazole 40 MG in NS 10 ML IV ONE (17:45)
[2023-09-23 17:57] LABS: BASO % 0.4 % (0.0-2.0); EOS # 0.3 K/mm3 (0.0-0.7); EOS % 3.1 % (0.0-4.0); GRAN # 5.2 K/mm3 (1.4-6.5); GRAN % 57.5 % (42.2-75.2); HEMOGLOBIN 11.7 g/dl (12.5-16.0); LYMPH # 2.8 K/mm3 (1.2-3.4); LYMPH % 30.9 % (20.0-51.0); MEAN CELL VOLUME 87 fl (80.0-100.0); MEAN CORPUSCULAR HEMOGLOBIN 29 pg (27-31); MEAN CORPUSCULAR HGB CONC 33 g/dl (33.0-37.0); MEAN PLATELET VOLUME 9.8 fl (7.4-10.4); MONO # 0.7 K/mm3 (0.1-0.6); MONO % 7.9 % (1.7-9.3); PLATELET COUNT 268 K/mm3 (130-400); RED BLOOD COUNT 4.07 M/mm3 (4.10-5.30)
[2023-09-23 17:59] LABS: HEMATOCRIT 35.4 % (37.0-47.0)
[2023-09-23 18:17] LABS: ALANINE AMINOTRANSFERASE 11 U/L (0-55); ALBUMIN 3.3 g/dL (3.4-4.8); ALKALINE PHOSPHATASE 76 U/L (40-150); ANION GAP 11 mmol/L (7-16); AST,SGOT 14 U/L (5-34); BILIRUBIN,TOTAL 0.5 mg/dL (0.2-1.2); BLOOD UREA NITROGEN 19 mg/dL (10-20); CALCIUM 9.1 mg/dL (8.4-10.2); CHLORIDE 105 mEq/L (98-107); CREATININE, serum 1.13 mg/dL (0.57-1.11); GLUCOSE 98 mg/dL (70-99); POTASSIUM 4.4 mEq/L (3.5-4.5); SODIUM 134 mEq/L (136-145); TOTAL PROTEIN 7.3 g/dl (6.2-8.1)
[2023-09-23 18:23] LABS: TROPONIN-I < 0.010 ng/mL (0.00-0.033)
[2023-09-23 19:41] VITALS: BP 174/86; PULSE 68
[2023-09-23 19:51] LABS: COLLECTION METHOD CATHETER
[2023-09-23 20:10] LABS: URINE APPEARANCE CLEAR (CLEAR/HAZY); URINE BLOOD NEGATIVE (NEGATIVE); URINE COLOR YELLOW (YELLOW); URINE GLUCOSE 3+ (NEGATIVE); URINE KETONE NEGATIVE (NEGATIVE); URINE NITRATE NEGATIVE (NEGATIVE); URINE PROTEIN(semi-quant) NEGATIVE (NEGATIVE)
[2023-09-25] MEDS ORDERED: MACROBID 1100 MG/CAP PO (11:13)
== END 2023-09-23 19:41 | disposition home or self-care (01) ==
LOC: COL.ER 17:06
PROVIDERS: Physician Assistant
DX: R05.3 Chronic cough (principal); R09.89 Other specified symptoms and signs involving the circulatory and respiratory systems
CPT/HCPCS: C9113

== ENCOUNTER 2023-11-17 12:13 | Emergency (ER) | payer MEDICARE ==
[~2023-11-17] VITALS: Ht 165.1 cm; Wt 86.4 kg
[2023-11-17 12:27] VITALS: TEMP 98.4
[2023-11-17 13:40] LABS: BASO % 0.3 % (0.0-2.0); EOS # 0.2 K/mm3 (0.0-0.7); EOS % 1.4 % (0.0-4.0); GRAN % 69.4 % (42.2-75.2); HEMATOCRIT 38.3 % (37.0-47.0); HEMOGLOBIN 12.4 g/dl (12.5-16.0); LYMPH # 2.3 K/mm3 (1.2-3.4); LYMPH % 20.1 % (20.0-51.0); MEAN CELL VOLUME 87 fl (80.0-100.0); MEAN CORPUSCULAR HEMOGLOBIN 28 pg (27-31); MEAN CORPUSCULAR HGB CONC 32 g/dl (33.0-37.0); MEAN PLATELET VOLUME 9.9 fl (7.4-10.4); MONO % 8.5 % (1.7-9.3); PLATELET COUNT 253 K/mm3 (130-400); REDCELL DISTRIBUTION WIDTH-CV 16.9 % (11.5-14.5)
[2023-11-17 13:56] LABS: ANION GAP 12 mmol/L (7-16); BLOOD UREA NITROGEN 38 mg/dL (10-20); CHLORIDE 107 mEq/L (98-107); CREATININE, serum 1.37 mg/dL (0.57-1.11); GLUCOSE 99 mg/dL (70-99); POTASSIUM 4.7 mEq/L (3.5-4.5); SODIUM 138 mEq/L (136-145)
[2023-11-17 13:57] LABS: ALANINE AMINOTRANSFERASE 8 U/L (0-55); ALBUMIN 3.4 g/dL (3.4-4.8); ALKALINE PHOSPHATASE 74 U/L (40-150); AST,SGOT 10 U/L (5-34); BILIRUBIN,TOTAL 0.7 mg/dL (0.2-1.2); TOTAL PROTEIN 7.3 g/dl (6.2-8.1)
[2023-11-17 14:03] LABS: TROPONIN-I < 0.010 ng/mL (0.00-0.033)
[2023-11-17 18:12] VITALS: BP 172/81; PULSE 66
== END 2023-11-17 18:13 | disposition home or self-care (01) ==
LOC: COL.ER 12:13
PROVIDERS: Emergency Medicine
DX: R42 Dizziness and giddiness (principal)

== ENCOUNTER 2023-12-17 14:53 | Inpatient (IN) | payer MEDICARE ==
[~2023-12-17] VITALS: Ht 165.1 cm; Wt 86.4 kg
[~2023-12-17 14:53] MED LIST changes: +CIPRO 500MG TA500 MG PO; +FLAGYL500 MG PO
[2023-12-17] MEDS ORDERED: Ondansetron 4 MG/2 ML VIAL IV ONE (15:15)
[2023-12-17] MEDS ORDERED: NS 1,000 ML IV ONE (15:15)
[2023-12-17 15:24] LABS: BASO % 0.5 % (0.0-2.0); EOS # 0.3 K/mm3 (0.0-0.7); EOS % 4.1 % (0.0-4.0); GRAN # 4.3 K/mm3 (1.4-6.5); GRAN % 56.2 % (42.2-75.2); HEMOGLOBIN 11.3 g/dl (12.5-16.0); LYMPH # 2.3 K/mm3 (1.2-3.4); MEAN CELL VOLUME 90 fl (80.0-100.0); MEAN CORPUSCULAR HEMOGLOBIN 28 pg (27-31); MEAN CORPUSCULAR HGB CONC 31 g/dl (33.0-37.0); MEAN PLATELET VOLUME 10.3 fl (7.4-10.4); MONO # 0.7 K/mm3 (0.1-0.6); MONO % 8.9 % (1.7-9.3); PLATELET COUNT 262 K/mm3 (130-400); RED BLOOD COUNT 4.07 M/mm3 (4.10-5.30); REDCELL DISTRIBUTION WIDTH-CV 15.9 % (11.5-14.5)
[2023-12-17 15:24] LABS: COLLECTION METHOD CATHETER
[2023-12-17 15:27] LABS: HEMATOCRIT 36.5 % (37.0-47.0)
[2023-12-17 15:28] LABS: URINE APPEARANCE CLEAR (CLEAR/HAZY); URINE BLOOD NEGATIVE (NEGATIVE); URINE COLOR YELLOW (YELLOW); URINE GLUCOSE 3+ (NEGATIVE); URINE KETONE NEGATIVE (NEGATIVE); URINE NITRATE NEGATIVE (NEGATIVE); URINE PROTEIN(semi-quant) NEGATIVE (NEGATIVE); URINE UROBILINOGEN 0.2 E.U/dL (0.2-1.0)
[2023-12-17] MEDS ORDERED: Morphine 4 MG/ML VIAL IV ONE (15:30)
[2023-12-17] MEDS ORDERED: metroNIDAZOLE 100 ML IV ONE (15:30)
[2023-12-17 15:39] LABS: ALBUMIN 3.1 g/dL (3.4-4.8); BILIRUBIN,TOTAL 0.3 mg/dL (0.2-1.2); CALCIUM 9.1 mg/dL (8.4-10.2); CREATININE, serum 1.31 mg/dL (0.57-1.11); POTASSIUM 4.5 mEq/L (3.5-4.5); TOTAL PROTEIN 6.9 g/dl (6.2-8.1)
[2023-12-17] MEDS ORDERED: Iohexol 300 - 100 ML VIAL IV ONE (15:57)
[2023-12-17] MEDS ORDERED: NS 100 ML IV ONE (15:58)
[2023-12-17] MEDS ORDERED: *Potassium Replacement Protocol MC SCH (17:30)
[2023-12-17] MEDS ORDERED: NS 1,000 ML IV SCH (17:30)
[2023-12-17] MEDS ORDERED: hydrOXYzine HCl 25 MG TAB PO PRN (17:45)
[2023-12-17] MEDS ORDERED: Ondansetron 4 MG/2 ML VIAL IV PRN (17:45)
[2023-12-17] MEDS ORDERED: Acetaminophen 325 MG TAB PO PRN (17:45)
[2023-12-17 18:13] VITALS: BP 149/89; PULSE 68; TEMP 97.8
[2023-12-17] MEDS ORDERED: VALIUM 5MG T5 MG/TAB PO (18:19)
[2023-12-17] MEDS ORDERED: VIRTUSSIN AC 1118 ML (18:20)
[2023-12-17 18:39] VITALS: BP_SYST 149
--- NOTE | 2023-12-17 19:13 | NUR ---
Patient admitted to room 357 at approximately 1800 with diagnosis of diverticulitis. A/O x4. Intake and physical assessment completed. IVF of NS infusing to RAC at 75/ml without s/s IV related complications. Son Ed, who is also DPOA with patient on arrival to room but has since went home. Pt denies pain or needs. Drinking CL diet. Fall precautions in place. Bedside report given to NAILA Steven.
[2023-12-17] MEDS ORDERED: BREZTRI AEROS10.7 GM IH (19:20)
[2023-12-17] MEDS ORDERED: ASPRUZYO SPRIN500 MG PO (19:20)
[2023-12-17] MEDS ORDERED: PEPCID 20MG TAB20 MG PO (19:30)
[2023-12-17] MEDS ORDERED: diazePAM 5 MG TAB PO PRN (19:30)
--- NOTE | 2023-12-17 19:34 | NUR ---
Med Rec reviewed with Gillian Regan APRN as there was discrepancies with what was continued by MD and what patient reported she was taking/not taking. NAILA Steven made aware and will clarify cough guaifenesin/cod dosage and relay that information to Gillian. Patient provided med list but it didn't provide a dosage on the above mentioned medication.
[2023-12-17 19:56] VITALS: BP 131/82; PULSE 75; TEMP 97.4
[2023-12-17 20:45] VITALS: BP_SYST 131
[2023-12-17] MEDS ORDERED: levETIRAcetam 500 MG TAB PO SCH (21:00)
[2023-12-17] MEDS ORDERED: ARIPiprazole 5 MG TAB PO SCH (21:00)
[2023-12-17] MEDS ORDERED: rOPINIRole 1 MG TAB PO SCH (21:00)
[2023-12-17] MEDS ORDERED: Budesonide/Glycopyrrolate/Formoterol **** subs to Budesonide + Umeclid/Vilant IH SCH (21:00)
[2023-12-17] MEDS ORDERED: Clopidogrel 75 MG TAB PO SCH (21:00)
[2023-12-17] MEDS ORDERED: Apixaban 5 MG TABLET PO SCH (21:00)
[2023-12-17 23:12] VITALS: BP 137/80; PULSE 66; TEMP 97.8
[2023-12-17] MEDS ORDERED: Morphine 4 MG/ML VIAL IV PRN (23:45)
[2023-12-18] VITALS (12 sets, daily range): BP systolic 105–137; BP diastolic 63–76; PULSE 52–84; TEMP 97.5–98
[2023-12-18 06:55] LABS: BASO % 0.3 % (0.0-2.0); EOS # 0.4 K/mm3 (0.0-0.7); EOS % 6.8 % (0.0-4.0); GRAN # 3.1 K/mm3 (1.4-6.5); GRAN % 47.8 % (42.2-75.2); HEMOGLOBIN 10.1 g/dl (12.5-16.0); LYMPH # 2.3 K/mm3 (1.2-3.4); LYMPH % 34.9 % (20.0-51.0); MEAN CELL VOLUME 88 fl (80.0-100.0); MEAN CORPUSCULAR HEMOGLOBIN 28 pg (27-31); MEAN CORPUSCULAR HGB CONC 32 g/dl (33.0-37.0); MEAN PLATELET VOLUME 9.8 fl (7.4-10.4); MONO # 0.6 K/mm3 (0.1-0.6); MONO % 9.9 % (1.7-9.3); PLATELET COUNT 216 K/mm3 (130-400); RED BLOOD COUNT 3.64 M/mm3 (4.10-5.30); REDCELL DISTRIBUTION WIDTH-CV 15.9 % (11.5-14.5)
[2023-12-18] MEDS ORDERED: Umeclidinium/Vilanterol 62.5-25 MCG INHALATION/INHALER IH SCH (07:00)
[2023-12-18] MEDS ORDERED: Budesonide Neb Susp 0.5 MG/2 ML AMP IH SCH (07:00)
[2023-12-18 07:02] LABS: HEMATOCRIT 32.1 % (37.0-47.0)
[2023-12-18 07:47] LABS: ALBUMIN 2.7 g/dL (3.4-4.8); CALCIUM 8.4 mg/dL (8.4-10.2); CREATININE, serum 1.04 mg/dL (0.57-1.11); MAGNESIUM 1.9 mg/dL (1.6-2.6); PHOSPHOROUS 3.7 mg/dL (2.3-4.7); POTASSIUM 4.2 mEq/L (3.5-4.5)
[2023-12-18] MEDS ORDERED: metroNIDAZOLE 100 ML IV SCH (09:00)
[2023-12-18] MEDS ORDERED: Empagliflozin 10 MG TAB PO SCH (09:00)
[2023-12-18] MEDS ORDERED: Famotidine 20 MG TAB PO SCH (09:00)
[2023-12-18] MEDS ORDERED: Ranolazine ER 500 MG TAB PO SCH (09:00)
[2023-12-18] MEDS ORDERED: Montelukast 10 MG TAB PO SCH (09:00)
--- NOTE | 2023-12-18 09:30 | NUR ---
Assessment complete. A/O x4. IVF infuse to RAC without s/s complications. Pt reports last bowel movement on Tuesday which was diarrhea. Fall precautions in place. Pt denies pain or needs.
--- NOTE | 2023-12-18 11:15 | NUR ---
SW met with patient to complete intake and discharge planning. Patient provides that she lives in [facility] with son/[facility]- Jose J Reveal [phone]. Patient provides she is independent with ADLs, does utilize a walker and a cane for mobility, and currently utilizes [facility] for home health services to assist with bathing. PCP is is Dr. Cueto, and pharmacy is [facility]. Patient states that she plans to return to her home upon discharge with son. PT assessment information reviewed and home health with pt services recommended. SW will provided choices for home health services and follow up with patient for choice if she chooses to utilize services. SW will continue to follow. Discharge plan: home with hh services SARAH
[2023-12-18] MEDS ORDERED: metroNIDAZOLE 250 MG TAB PO SCH ×2 (12:00→21:00)
[2023-12-18] MEDS ORDERED: Polyethylene Glycol 3350 17 GM PDS PO SCH (12:00)
[2023-12-18] MEDS ORDERED: Methylnaltrexone 12 MG/0.6 ML VIAL SQ ONE (12:00)
[2023-12-18] MEDS ORDERED: Docusate Sodium 100 MG CAP PO SCH (12:00)
[2023-12-18] MEDS ORDERED: oxyCODONE 5 MG TAB PO PRN (12:15)
--- NOTE | 2023-12-18 13:54 | NUR ---
Administered Relistor, Colace and Miralax for c/o constipation. Patient had a very large bowel movement shortly after that had several formed bowel movements with liquid stool.
--- NOTE | 2023-12-18 14:39 | NUR ---
Bedside report given to Leona Ling RN.
--- NOTE | 2023-12-18 14:40 | NUR ---
BEDSIDE SHIFT REPORT RECIEVED FROM LORA YOO. THIS RN HAS ASSUMED PATIENT CARE. PATIENT CURRENTLY RESTING IN BED. PATIENT DENIES ANY NEEDS OR COMPLAINTS AT THIS TIME. CALL LIGHT WITHIN REACH. FALL PRECAUTIONS IN PLACE.
[2023-12-18] MEDS ORDERED: Ciprofloxacin 500 MG TAB PO SCH (21:00)
[2023-12-19 00:05] VITALS: BP_SYST 130
[2023-12-19 03:36] VITALS: BP 139/68; PULSE 64; TEMP 98.1
[2023-12-19 04:10] VITALS: BP_SYST 139
[2023-12-19 06:30] LABS: BASO % 0.4 % (0.0-2.0); EOS # 0.4 K/mm3 (0.0-0.7); EOS % 5.3 % (0.0-4.0); GRAN # 4.1 K/mm3 (1.4-6.5); GRAN % 60.9 % (42.2-75.2); HEMOGLOBIN 10.2 g/dl (12.5-16.0); LYMPH # 1.7 K/mm3 (1.2-3.4); LYMPH % 24.6 % (20.0-51.0); MEAN CELL VOLUME 89 fl (80.0-100.0); MEAN CORPUSCULAR HEMOGLOBIN 28 pg (27-31); MEAN CORPUSCULAR HGB CONC 32 g/dl (33.0-37.0); MONO # 0.6 K/mm3 (0.1-0.6); MONO % 8.7 % (1.7-9.3); PLATELET COUNT 218 K/mm3 (130-400); RED BLOOD COUNT 3.64 M/mm3 (4.10-5.30); REDCELL DISTRIBUTION WIDTH-CV 15.9 % (11.5-14.5)
--- NOTE | 2023-12-19 06:30 | NUR ---
BEDSIDE REPORT RECIEVED AT THIS TIME.
[2023-12-19 06:36] LABS: HEMATOCRIT 32.3 % (37.0-47.0)
[2023-12-19 07:10] LABS: ALBUMIN 2.7 g/dL (3.4-4.8); CALCIUM 8.4 mg/dL (8.4-10.2); CREATININE, serum 1.24 mg/dL (0.57-1.11); MAGNESIUM 1.9 mg/dL (1.6-2.6); PHOSPHOROUS 3.2 mg/dL (2.3-4.7); POTASSIUM 4.1 mEq/L (3.5-4.5)
[2023-12-19 07:54] VITALS: BP 134/79; PULSE 57; TEMP 98.1
--- NOTE | 2023-12-19 08:51 | NUR ---
SHIFT ASSESSMENT COMPLETED AT THIS TIME. PT A&OX4. PT DENIES PAIN AND NAUSEA AT THIS TIME. PT REPORTS HAVING TROUBLE TAKING BIG MEDICATIONS AND REQUESTS THEM TO BE SPLIT IN HALF. THIS NURSE ADMINSITERED SCHEDULDED MORNING MEDICATIONS WITH NO COMPLICATIONS. PT UP IN CHAIR EATING BREAKFAST. PT VOICES NO OTHER COMPLAINTS OR CONCERNS AT THIS TIME.
[2023-12-19 09:00] VITALS: BP_SYST 134
[2023-12-19 11:30] VITALS: BP 106/67; PULSE 108; TEMP 97.3
--- NOTE | 2023-12-19 13:01 | NUR ---
DISCHARGE ORDERS RECIEVED. DISCHARGE EDUCATION AND INSTRUCTIONS GIVEN AT THIS TIME. PT VERBALIZES UNDERSTANDING. PT VOICES NO CONERNS OR COMPLAINTS. PT TRANSPORTED VIA WHEELCHAIR TO PRIVATE VEHICLE AND DISCHARGED HOME WITH FAMILY.
--- NOTE | 2023-12-19 13:28 | NUR ---
Social work student faxed referral and discharge orders to [facility]. Discharge plan : home with
--- NOTE | 2023-12-19 16:59 | NUR ---
laundromat worker followed up with patient and her son regarding discharge plan. Patient would like home health services. SW provided the Medicare.gov list of options. Patient reports she has had [facility] before and would like to continue services with them. YASMINE Student faxed the referral to [facility]. SW received a call from [facility] stating they are unable to accept patient as they do not have PT and OT at this time in that area. YASMINE contacted the other home health agencies that cover the [place] area: [facility], [facility] and [facility] expressed they also do not have PT in that area at this time. [facility] expressed they would check and get back with the social work specialist. [facility]ic[facility]. AYSMINE Student contacted the patient and explained [facility] could not accept and wanted to know if she would like [facility] or [facility]. Patient stated she would be okay with either agency as long as she received the services requested. YASMINE received a call that [facility] is unable to accept due to not having PT in the area. YASMINE Student faxed the referral to [facility]. [facility] contacted the social work specialist and confirmed they are able to accept patient for PT, OT and nursing. Discharge plan: Home with [facility]
== END 2023-12-19 13:03 | disposition home health service (06) | DRG 392 ==
LOC: COL.ER 14:53 → MEDICAL 16:39
PROVIDERS: Family Medicine; ADMIT Internal Medicine
DX: K57.32 Diverticulitis of large intestine without perforation or abscess without bleeding (principal); I50.32 Chronic diastolic (congestive) heart failure; I49.5 Sick sinus syndrome; Z96.653 Presence of artificial knee joint, bilateral; Z96.643 Presence of artificial hip joint, bilateral; Z96.611 Presence of right artificial shoulder joint; Z96.612 Presence of left artificial shoulder joint; Z66 Do not resuscitate; I25.10 Atherosclerotic heart disease of native coronary artery without angina pectoris; E78.5 Hyperlipidemia, unspecified; K21.9 Gastro-esophageal reflux disease without esophagitis; G25.81 Restless legs syndrome; F41.9 Anxiety disorder, unspecified; K59.00 Constipation, unspecified; F32.A Depression, unspecified; I11.0 Hypertensive heart disease with heart failure; J44.9 Chronic obstructive pulmonary disease, unspecified; Z88.6 Allergy status to analgesic agent; Z95.0 Presence of cardiac pacemaker; Z86.711 Personal history of pulmonary embolism; Z88.1 Allergy status to other antibiotic agents; Z88.8 Allergy status to other drugs, medicaments and biological substances; Z79.899 Other long term (current) drug therapy; Z79.01 Long term (current) use of anticoagulants; Z79.02 Long term (current) use of antithrombotics/antiplatelets; Z79.2 Long term (current) use of antibiotics; Z95.5 Presence of coronary angioplasty implant and graft; Z23 Encounter for immunization
CPT/HCPCS: A9270; J0744; J1836; J2212; J2270; J2405; J7030; Q9967

== ENCOUNTER 2024-01-21 11:19 | Emergency (ER) | payer MEDICARE ==
[~2024-01-21] VITALS: Ht 165.1 cm; Wt 86.8 kg
[~2024-01-21 11:19] MED LIST changes: +ASPRUZYO SPRIN500 MG PO; +BREZTRI AEROS10.7 GM IH; +VIRTUSSIN AC 1118 ML
[2024-01-21 11:27] VITALS: TEMP 98
[2024-01-21] MEDS ORDERED: Morphine 4 MG/ML VIAL IV ONE (12:00)
[2024-01-21] MEDS ORDERED: Morphine 10 MG/ML VIAL IM ONE (12:30)
[2024-01-21 12:58] LABS: BASO % 0.4 % (0.0-2.0); EOS # 0.3 K/mm3 (0.0-0.7); GRAN # 3.9 K/mm3 (1.4-6.5); GRAN % 52.6 % (42.2-75.2); HEMATOCRIT 39.2 % (37.0-47.0); HEMOGLOBIN 12.7 g/dl (12.5-16.0); LYMPH # 2.5 K/mm3 (1.2-3.4); LYMPH % 33.1 % (20.0-51.0); MEAN CELL VOLUME 88 fl (80.0-100.0); MEAN CORPUSCULAR HEMOGLOBIN 29 pg (27-31); MEAN CORPUSCULAR HGB CONC 32 g/dl (33.0-37.0); MEAN PLATELET VOLUME 9.9 fl (7.4-10.4); MONO # 0.7 K/mm3 (0.1-0.6); MONO % 9.6 % (1.7-9.3); PLATELET COUNT 224 K/mm3 (130-400); RED BLOOD COUNT 4.46 M/mm3 (4.10-5.30); REDCELL DISTRIBUTION WIDTH-CV 15.8 % (11.5-14.5)
[2024-01-21] MEDS ORDERED: NS 500 ML IV ONE (13:00)
[2024-01-21 13:17] LABS: ALANINE AMINOTRANSFERASE 13 U/L (0-55); ALBUMIN 3.4 g/dL (3.4-4.8); ALKALINE PHOSPHATASE 68 U/L (40-150); ANION GAP 10 mmol/L (7-16); AST,SGOT 12 U/L (5-34); BILIRUBIN,TOTAL 0.5 mg/dL (0.2-1.2); BLOOD UREA NITROGEN 28 mg/dL (10-20); C-REACTIVE PROTEIN 0.46 mg/dL (0.00-0.50); CALCIUM 9.3 mg/dL (8.4-10.2); CHLORIDE 106 mEq/L (98-107); GLUCOSE 120 mg/dL (70-99); POTASSIUM 4.4 mEq/L (3.5-4.5); SODIUM 136 mEq/L (136-145); TOTAL PROTEIN 7.1 g/dl (6.2-8.1)
[2024-01-21 13:23] LABS: TROPONIN-I < 0.010 ng/mL (0.00-0.033)
[2024-01-21 14:06] VITALS: BP 102/48; PULSE 60
== END 2024-01-21 14:08 | disposition home or self-care (01) ==
LOC: COL.ER 11:19
PROVIDERS: Emergency Medicine
DX: R07.89 Other chest pain (principal)
CPT/HCPCS: J2270; J7040

== ENCOUNTER 2024-02-03 12:36 | Emergency (ER) | payer MEDICARE ==
[~2024-02-03] VITALS: Ht 165.1 cm; Wt 86.4 kg
[2024-02-03 12:50] VITALS: TEMP 98.4
[2024-02-03 15:03] LABS: BASO % 0.2 % (0.0-2.0); EOS % 0.2 % (0.0-4.0); GRAN % 61.1 % (42.2-75.2); HEMATOCRIT 40.5 % (37.0-47.0); HEMOGLOBIN 12.9 g/dl (12.5-16.0); LYMPH # 2.2 K/mm3 (1.2-3.4); MEAN CELL VOLUME 90 fl (80.0-100.0); MEAN CORPUSCULAR HEMOGLOBIN 29 pg (27-31); MEAN CORPUSCULAR HGB CONC 32 g/dl (33.0-37.0); MEAN PLATELET VOLUME 10.2 fl (7.4-10.4); MONO # 0.9 K/mm3 (0.1-0.6); MONO % 11.4 % (1.7-9.3); PLATELET COUNT 168 K/mm3 (130-400); RED BLOOD COUNT 4.51 M/mm3 (4.10-5.30)
[2024-02-03 15:16] LABS: ALBUMIN 3.5 g/dL (3.4-4.8); BILIRUBIN,TOTAL 0.5 mg/dL (0.2-1.2); C-REACTIVE PROTEIN 9.47 mg/dL (0.00-0.50); CALCIUM 9.1 mg/dL (8.4-10.2); CREATININE, serum 1.55 mg/dL (0.57-1.11); POTASSIUM 4.1 mEq/L (3.5-4.5); TOTAL PROTEIN 7.3 g/dl (6.2-8.1)
[2024-02-03 15:45] LABS: COLLECTION METHOD CATHETER
[2024-02-03 15:57] LABS: URINE APPEARANCE CLOUDY (CLEAR/HAZY); URINE BLOOD NEGATIVE (NEGATIVE); URINE COLOR Dark Yellow (YELLOW); URINE GLUCOSE 3+ (NEGATIVE); URINE KETONE 1+ (NEGATIVE); URINE NITRATE NEGATIVE (NEGATIVE); URINE PROTEIN(semi-quant) 1+ (NEGATIVE)
[2024-02-03 16:20] LABS: URINE RBC 0-2 /hpf (0-2)
[2024-02-03 17:00] VITALS: BP 105/78; PULSE 92
== END 2024-02-03 17:00 | disposition home or self-care (01) ==
LOC: COL.ER 12:36
PROVIDERS: Emergency Medicine
DX: U07.1 COVID-19 (principal); R05.9 Cough, unspecified; R09.81 Nasal congestion; R09.89 Other specified symptoms and signs involving the circulatory and respiratory systems

== ENCOUNTER 2024-02-05 13:43 | Emergency (ER) | payer MEDICARE ==
[~2024-02-05] VITALS: Ht 165.1 cm; Wt 86.4 kg
[2024-02-05 13:59] VITALS: TEMP 98
[2024-02-05 15:18] LABS: BASO % 0.2 % (0.0-2.0); EOS # 0.2 K/mm3 (0.0-0.7); EOS % 4.3 % (0.0-4.0); GRAN # 2.2 K/mm3 (1.4-6.5); GRAN % 45.2 % (42.2-75.2); HEMOGLOBIN 11.8 g/dl (12.5-16.0); LYMPH # 2.1 K/mm3 (1.2-3.4); LYMPH % 42.4 % (20.0-51.0); MEAN CELL VOLUME 88 fl (80.0-100.0); MEAN CORPUSCULAR HEMOGLOBIN 29 pg (27-31); MEAN CORPUSCULAR HGB CONC 32 g/dl (33.0-37.0); MEAN PLATELET VOLUME 10.4 fl (7.4-10.4); MONO # 0.4 K/mm3 (0.1-0.6); MONO % 7.7 % (1.7-9.3); PLATELET COUNT 182 K/mm3 (130-400); RED BLOOD COUNT 4.14 M/mm3 (4.10-5.30); REDCELL DISTRIBUTION WIDTH-CV 16.3 % (11.5-14.5)
[2024-02-05 15:25] LABS: HEMATOCRIT 36.4 % (37.0-47.0)
[2024-02-05 15:36] LABS: ALBUMIN 3.2 g/dL (3.4-4.8); BILIRUBIN,TOTAL 0.3 mg/dL (0.2-1.2); CALCIUM 8.5 mg/dL (8.4-10.2); CREATININE, serum 1.13 mg/dL (0.57-1.11); POTASSIUM 4.3 mEq/L (3.5-4.5); TOTAL PROTEIN 6.5 g/dl (6.2-8.1)
[2024-02-05] MEDS ORDERED: TESSALON PERLE200 MG PO (16:21)
[2024-02-05] MEDS ORDERED: DOXYCYCLINE HY100 MG PO (16:21)
[2024-02-05 16:53] VITALS: BP 121/79; PULSE 86
== END 2024-02-05 16:53 | disposition home or self-care (01) ==
LOC: COL.ER 13:43
PROVIDERS: Physician Assistant
DX: U07.1 COVID-19 (principal); R06.02 Shortness of breath; R04.2 Hemoptysis; Z73.0 Burn-out

== ENCOUNTER 2024-02-08 18:14 | Emergency (ER) | payer MEDICARE ==
[~2024-02-08] VITALS: Ht 152.4 cm; Wt 86.4 kg
[~2024-02-08 18:14] MED LIST changes: +DOXYCYCLINE HY100 MG PO; +TESSALON PERLE200 MG PO
[2024-02-08 18:29] VITALS: TEMP 98.7
[2024-02-08] MEDS ORDERED: NS 1,000 ML IV ONE (20:15)
[2024-02-08 20:57] LABS: BASO % 0.2 % (0.0-2.0); EOS % 0.5 % (0.0-4.0); GRAN # 3.6 K/mm3 (1.4-6.5); GRAN % 58.3 % (42.2-75.2); HEMATOCRIT 38.7 % (37.0-47.0); HEMOGLOBIN 12.7 g/dl (12.5-16.0); LYMPH % 33.2 % (20.0-51.0); MEAN CELL VOLUME 86 fl (80.0-100.0); MEAN CORPUSCULAR HEMOGLOBIN 28 pg (27-31); MEAN CORPUSCULAR HGB CONC 33 g/dl (33.0-37.0); MEAN PLATELET VOLUME 10.4 fl (7.4-10.4); MONO # 0.5 K/mm3 (0.1-0.6); MONO % 7.6 % (1.7-9.3); PLATELET COUNT 186 K/mm3 (130-400); RED BLOOD COUNT 4.48 M/mm3 (4.10-5.30); REDCELL DISTRIBUTION WIDTH-CV 16.3 % (11.5-14.5)
[2024-02-08 21:14] LABS: ALBUMIN 3.4 g/dL (3.4-4.8); BILIRUBIN,TOTAL 0.7 mg/dL (0.2-1.2); CALCIUM 8.9 mg/dL (8.4-10.2); CREATININE, serum 1.16 mg/dL (0.57-1.11); POTASSIUM 3.7 mEq/L (3.5-4.5); TOTAL PROTEIN 7.4 g/dl (6.2-8.1)
[2024-02-08 21:20] LABS: TROPONIN-I 0.022 ng/mL (0.00-0.033)
[2024-02-08] MEDS ORDERED: Iohexol 350 - 100 ML VIAL IV ONE (21:44)
[2024-02-08] MEDS ORDERED: NS 100 ML IV ONE (21:46)
[2024-02-08] MEDS ORDERED: NS 500 ML IV ONE (22:15)
[2024-02-09 01:18] VITALS: BP 167/92; PULSE 90
== END 2024-02-09 01:18 | disposition home or self-care (01) ==
LOC: COL.ER 18:14
PROVIDERS: Nurse Practitioner
DX: U07.1 COVID-19 (principal); R06.02 Shortness of breath; R53.83 Other fatigue; R42 Dizziness and giddiness; R55 Syncope and collapse; R05.9 Cough, unspecified; Z73.0 Burn-out
CPT/HCPCS: J7030; Q9967

== ENCOUNTER 2024-02-25 04:00 | Emergency (ER) | payer MEDICARE ==
[~2024-02-25] VITALS: Ht 165.1 cm; Wt 89.2 kg
[2024-02-25 04:07] VITALS: TEMP 97.8
[2024-02-25 04:28] LABS: BASO % 0.2 % (0.0-2.0); EOS # 0.3 K/mm3 (0.0-0.7); EOS % 3.5 % (0.0-4.0); GRAN # 4.4 K/mm3 (1.4-6.5); GRAN % 54.4 % (42.2-75.2); HEMOGLOBIN 11.9 g/dl (12.5-16.0); LYMPH # 2.7 K/mm3 (1.2-3.4); MEAN CELL VOLUME 87 fl (80.0-100.0); MEAN CORPUSCULAR HEMOGLOBIN 29 pg (27-31); MEAN CORPUSCULAR HGB CONC 33 g/dl (33.0-37.0); MEAN PLATELET VOLUME 9.5 fl (7.4-10.4); MONO # 0.6 K/mm3 (0.1-0.6); MONO % 7.7 % (1.7-9.3); PLATELET COUNT 255 K/mm3 (130-400); RED BLOOD COUNT 4.18 M/mm3 (4.10-5.30); REDCELL DISTRIBUTION WIDTH-CV 17.3 % (11.5-14.5)
[2024-02-25 04:29] LABS: HEMATOCRIT 36.4 % (37.0-47.0)
[2024-02-25 04:34] LABS: INR 1.2 (0.8-3.0); PROTHROMBIN TIME 13.1 SECONDS (9.7-12.8)
[2024-02-25 04:36] LABS: PARTIAL THROMBOPLASTIN TIME 34.3 SECONDS (26.0-37.0)
[2024-02-25 04:47] LABS: ALBUMIN 3.2 g/dL (3.4-4.8); BILIRUBIN,TOTAL 0.5 mg/dL (0.2-1.2); CALCIUM 9.6 mg/dL (8.4-10.2); CREATININE, serum 0.95 mg/dL (0.57-1.11); POTASSIUM 3.4 mEq/L (3.5-4.5); TOTAL PROTEIN 7.1 g/dl (6.2-8.1)
[2024-02-25 04:53] LABS: TROPONIN-I 0.023 ng/mL (0.00-0.033)
[2024-02-25 07:27] VITALS: BP 143/65; PULSE 81
== END 2024-02-25 07:27 | disposition home or self-care (01) ==
LOC: COL.ER 04:00
PROVIDERS: Emergency Medicine
DX: R07.89 Other chest pain (principal); I25.2 Old myocardial infarction; Z95.5 Presence of coronary angioplasty implant and graft; Z95.0 Presence of cardiac pacemaker

== ENCOUNTER 2024-03-23 20:14 | Emergency (ER) | payer MEDICARE ==
[~2024-03-23] VITALS: Ht 165.1 cm; Wt 86.4 kg
[2024-03-23 20:20] VITALS: TEMP 98.7
[2024-03-23 21:55] LABS: BASO % 0.3 % (0.0-2.0); EOS # 0.2 K/mm3 (0.0-0.7); EOS % 2.2 % (0.0-4.0); GRAN # 7.5 K/mm3 (1.4-6.5); GRAN % 75.7 % (42.2-75.2); HEMATOCRIT 40.6 % (37.0-47.0); HEMOGLOBIN 13.2 g/dl (12.5-16.0); LYMPH # 1.6 K/mm3 (1.2-3.4); LYMPH % 16.6 % (20.0-51.0); MEAN CELL VOLUME 90 fl (80.0-100.0); MEAN CORPUSCULAR HEMOGLOBIN 29 pg (27-31); MEAN CORPUSCULAR HGB CONC 33 g/dl (33.0-37.0); MEAN PLATELET VOLUME 9.7 fl (7.4-10.4); MONO # 0.5 K/mm3 (0.1-0.6); MONO % 4.9 % (1.7-9.3); PLATELET COUNT 219 K/mm3 (130-400); RED BLOOD COUNT 4.53 M/mm3 (4.10-5.30)
[2024-03-23 22:11] LABS: ALBUMIN 3.2 g/dL (3.4-4.8); BILIRUBIN,TOTAL 0.5 mg/dL (0.2-1.2); CALCIUM 9.4 mg/dL (8.4-10.2); CREATININE, serum 0.88 mg/dL (0.57-1.11); MAGNESIUM 1.9 mg/dL (1.6-2.6); POTASSIUM 3.2 mEq/L (3.5-4.5); TOTAL PROTEIN 7.3 g/dl (6.2-8.1)
[2024-03-23 22:27] LABS: TROPONIN-I 0.038 ng/mL (0.00-0.033)
[2024-03-23] MEDS ORDERED: Morphine 4 MG/ML VIAL IV ONE (22:30)
[2024-03-24 00:30] VITALS: BP 145/91; PULSE 92
== END 2024-03-24 00:30 | disposition home or self-care (01) ==
LOC: COL.ER 20:14
PROVIDERS: Emergency Medicine
DX: R07.1 Chest pain on breathing (principal); R79.89 Other specified abnormal findings of blood chemistry
CPT/HCPCS: J2270